=== PATIENT | female | born 1940 | race Caucasian/White ===

== ENCOUNTER 2021-08-02 09:56 | Outpatient (REF) | payer MEDICARE, OTHER, SELFPAY ==
[2021-08-02 11:29] LABS: Appearance Urine CLEAR; Color Urine YELLOW; Glucose Urine UA >=1000 MG/DL (NEG); Leukocyte Esterase Urine NEG (NEG); Nitrite Urine NEG (NEG); Urine Blood NEG (NEG); Urine Ketones NEG (NEG); Urine Protein NEG (NEG-TRACE)
[2021-08-02 11:45] LABS: Bacteria Urine 1+ /LPF; RBC Urine 0-2 /HPF (0); Squamous Epithelial Cell Urine 3+ /LPF
[2021-08-02 12:06] LABS: Estimated Average Glucose 146 mg/dL; Hemoglobin A1c % 6.7 %
[2021-08-02 12:19] LABS: Alanine Aminotransferase 17 U/L (0-31); Albumin Level 4.1 g/dL (3.5-5.0); Alkaline Phosphatase 89 U/L (39-117); Anion Gap 15 (12-20); Aspartate Amino Transferase 25 U/L (5-31); Bilirubin Total 0.7 mg/dL (0.0-1.0); Blood Urea Nitrogen 24 mg/dL (9-16); Calcium 9.4 mg/dL (8.4-10.2); Carbon Dioxide 28 mmol/L (22-29); Chloride 102 mmol/L (96-108); Cholesterol 150 mg/dL; Estimated Glomerular Filt Rate 40; Glucose Fasting 96 mg/dL (60-99); HDL Cholesterol 41 mg/dL; LDL Cholesterol Calculated 76 mg/dl; Magnesium 2.4 mg/dL (1.6-2.6); Potassium 4.4 mmol/L (3.3-5.1); Sodium 141 mmol/L (135-145); Total Protein 6.7 g/dL (6.5-8.0); Triglycerides 169 mg/dL
[2021-08-02 12:20] LABS: TSH reflex Free T4 2.01 uIU/mL (0.32-4.0)
== END 2021-08-02 09:57 | disposition home or self-care (01) ==
LOC: HO.WFDLDS 09:56
PROVIDERS: Visit Provider Family Medicine
DX: Z00.00 Encounter for general adult medical examination without abnormal findings (principal); E11.9 Type 2 diabetes mellitus without complications; G57.93 Unspecified mononeuropathy of bilateral lower limbs
CPT/HCPCS: 36415; 80053; 80061; 81001; 83036; 83735; 84443

== ENCOUNTER 2021-09-14 14:03 | Outpatient (REF) | payer MEDICARE, OTHER, SELFPAY | END 2021-09-14 14:04 | disposition home or self-care (01) | LOC: HO.LNP 14:03 | PROVIDERS: Visit Provider Hospitalist | DX: N39.0 Urinary tract infection, site not specified (principal); R30.0 Dysuria | CPT/HCPCS: 87086 ==

== ENCOUNTER → 2021-09-26 09:53 | Outpatient (BNVA) | payer MEDICARE, OTHER, SELFPAY | PROVIDERS: PCP Family Medicine; Visit Provider Orthopaedic Surgery | DX: M65.342 Trigger finger, left ring finger (principal) | CPT/HCPCS: 99202 ==

== ENCOUNTER 2021-10-12 10:28 | Day surgery (SDC) | payer MEDICARE, OTHER, SELFPAY ==
[2021-10-12 11:36] VITALS: BP 112/67; PULSE 58; RESP 16; TEMP 36.3; O2SAT 98; BMI 24.4
--- NOTE | 2021-10-12 11:37 | P.OP_ITS ---
Operative Note Operative Note Date of Service: 10/12/21 Narrative: Operative Note Preop diagnosis: 1. left ring finger Trigger finger 2. left middle finger trigger finger Postop diagnosis: Same Procedure: 1. left ring finger A1 brett release 2. Left middle finger A1 brett release Surgeon: Shyanne Walters MD Anesthesia: local block using 1% lidocaine with epinephrine Findings: No locking or catching after A1 brett release EBL: Less than 5 mL Tourniquet time: None Specimens: None Complications: None Disposition: Brought to recovery room in stable condition Plan: Follow-up for 10-14 days for wound check and suture removal Indications: The patient is 81 years old, with a left ring finger trigger finger that has been unresponsive to nonoperative management. The risks and benefits of operative treatment including but not limited to risk of damage to blood vessels, nerves, tendons, infection, persistent pain, persistent symptoms, recurrence or possible need for additional surgery were discussed with the patient and the patient wishes to proceed with surgery. Procedure: Once consent was obtained a local block was performed in the preop area using a combination of 1% lidocaine with epinephrine. The patient was then brought back to the operating suite and placed on the operative table in supine position. A tourniquet was applied to the proximal aspect of the left upper extremity and the limb was prepped and draped in a standard surgical fashion. Once assured that we had a good block, a 1.5 cm oblique incision was made centered over the A1 brett of the left ring finger . The incision was made through the skin to the subcutaneous tissues using a #15 blade. Careful dissection was made down to the level of the A1 brett using tenotomy scissors, with care being taken to protect the nearby neurovascular structures. A longitudinal incision was made in the A1 brett 1st using a #15 blade, then using tenotomy scissors under direct visualization. The A1 brett was noted to be thickened. Following our A1 brett release, we no longer saw any locking or catching of the digit with flexion and extension. Once assured that we had a good block, a 1.5 cm oblique incision was made centered over the A1 brett of the left middle finger . The incision was made through the skin to the subcutaneous tissues using a #15 blade. Careful dissection was made down to the level of the A1 brett using tenotomy scissors, with care being taken to protect the nearby neurovascular structures. A longitudinal incision was made in the A1 brett 1st using a #15 blade, then using tenotomy scissors under direct visualization. The A1 brett was noted to be thickened. Following our A1 brett release, we no longer saw any locking or catching of the digit with flexion and extension. Once satisfied with our A1 brett releases the wounds were copiously irrigated with normal saline and hemostasis was obtained with a brief period of local pressure. The skin edges were reapproximated with some 5.0 nylon suture m aterial and a sterile dressing was applied. The patient appears to have tolerated the procedure well and with no complications. All digits were well vascularized at the conclusion of the case.
[2021-10-12 11:58] LABS: Glucose, Whole Blood 151 mg/dL (60-115)
--- NOTE | 2021-10-12 12:38 | MHC.SHP ---
Pre-Procedural Eval Section A Date of Service: 10/12/21 Section B Chief Complaint: trigger release left middle and ring fingers Allergies: Allergies Allergy/AdvReac Type Severity Reaction Status Date / Time levofloxacin [From Levaquin] Allergy Mild hives Verified 09/26/21 10:03 Plan I have reviewed the history and physical and performed a pertinent physical examination on my patient. No changes have occurred unless specified.
[2021-10-12 13:25] VITALS: BP 138/52; PULSE 68; RESP 16; TEMP 36.1; O2SAT 95
== END 2021-10-12 14:20 | disposition home or self-care (01) ==
PROVIDERS: PCP Family Medicine; Visit Provider Orthopaedic Surgery
PROC: (CPT 26055; principal; 2021-10-12 11:20)
DX: M65.332 Trigger finger, left middle finger (principal); M65.342 Trigger finger, left ring finger; E11.9 Type 2 diabetes mellitus without complications; Z79.84 Long term (current) use of oral hypoglycemic drugs; Z79.899 Other long term (current) drug therapy; Z88.1 Allergy status to other antibiotic agents; Z87.891 Personal history of nicotine dependence
CPT/HCPCS: 26055 ×2; 82947

== ENCOUNTER → 2021-10-25 10:24 | Outpatient (BNVA) | payer MEDICARE, OTHER, SELFPAY | PROVIDERS: PCP Family Medicine; Visit Provider Orthopaedic Surgery | DX: Z09 Encounter for follow-up examination after completed treatment for conditions other than malignant neoplasm (principal); Z87.39 Personal history of other diseases of the musculoskeletal system and connective tissue | CPT/HCPCS: 99212 ==

== ENCOUNTER 2021-11-21 11:58 | Outpatient (REF) | payer MEDICARE, OTHER, SELFPAY ==
[2021-11-21 14:28] LABS: Lipase 33 U/L (8-78)
[2021-11-21 15:39] LABS: Folate > 20.0 ng/mL (> or = 4.0); Vitamin B12 935 pg/mL (200-900)
[2021-11-24 08:01] LABS: Transglutaminase Ab IgG <1.0 U/mL; Transglutaminase IgA <1.0 U/mL
[2021-11-26 15:56] LABS: Vitamin D 25-OH, D2 <4 ng/mL; Vitamin D 25-OH, D3 59 ng/mL; Vitamin D 25-OH, Total 59 ng/mL (30-100)
== END 2021-11-21 11:59 | disposition home or self-care (01) ==
LOC: HO.LAB 11:58
PROVIDERS: PCP Family Medicine; Referring Provider Family Medicine; Visit Provider Nurse Practitioner Family
DX: R10.11 Right upper quadrant pain (principal); R15.9 Full incontinence of feces; R14.0 Abdominal distension (gaseous); E55.9 Vitamin D deficiency, unspecified; Z12.11 Encounter for screening for malignant neoplasm of colon
CPT/HCPCS: 36415; 82306; 82607; 82746; 83690; 86364; 99202

== ENCOUNTER 2021-11-23 13:00 | Outpatient (REF) | payer MEDICARE, OTHER, SELFPAY ==
[2021-11-24 14:04] LABS: Leukocytes Stool Qualitative NEGATIVE (NEGATIVE)
[2021-11-30 21:51] LABS: Pancreatic Elastase-1 331 mcg/g
== END 2021-11-23 13:01 | disposition home or self-care (01) ==
LOC: HO.LNP 13:00
PROVIDERS: Visit Provider Nurse Practitioner Family
DX: R19.7 Diarrhea, unspecified (principal)
CPT/HCPCS: 82656; 87045; 87046; 87177; 87209; 89055

== ENCOUNTER 2021-12-01 11:55 | Outpatient (REF) | payer MEDICARE, OTHER, SELFPAY ==
--- NOTE | ~2021-12-01 | MM_ITS ---
EXAMINATION: MM DIAGNOSTIC DIGITAL BREAST TOMOSYNTHESIS, BILATERAL US BREAST LIMITED, BILATERAL CLINICAL INFORMATION: Palpable abnormality 12-o'clock position right breast. Circumscribed density inferior lateral aspect of the left breast. The lifetime risk of breast cancer based on the Tyrer-Cuzick Model is 3%. COMPARISON: Mammography: None TECHNIQUE: Digital breast tomosynthesis was performed in both the craniocaudal and mediolateral oblique views along with computer-aided detection (CAD). Synthesized 2D images were generated from the tomosynthesis. Bilateral targeted breast ultrasound. FINDINGS: The breasts are heterogeneously dense, which may obscure small masses (ACR BI-RADS breast composition Category c). MAMMOGRAPHY: There are innumerable calcifications seen bilaterally. No more suspicious grouping of calcifications is identified compared to any other grouping. About the inferior lateral aspect of the left breast approximately 4 cm from the nipple, there is a 1.0 x 0.7 cm circumscribed density No mammographic abnormality is appreciated about the region of the palpable lesion in the right breast. ULTRASOUND: Targeted right breast ultrasound in the region of the palpable abnormality demonstrated multiple cysts in the region with the largest measuring approximately 1.6 x 0.6 cm in size. The patient states that she had trauma to this region and it is less prominent compared to previously. Targeted left breast ultrasound at the 3-o'clock position, approximately 4 cm from the nipple, demonstrated a 7 x 5 x 1.2 cm simple cyst. Results are discussed with the patient at time of visit. MM/MM tomosynthesis diagnostic BI IMPRESSION: No mammographic or ultrasound findings to suggest malignancy. ASSESSMENT: BI-RADS 2: Benign RECOMMENDATION: Routine annual mammography screening due in 12 months. This patient's information was entered into a reminder system with a target due date for their next mammogram.
--- NOTE | ~2021-12-01 | US_ITS ---
EXAMINATION: US DIAGNOSTIC ULTRASOUND BREAST, LEFT CLINICAL INFORMATION: Circumscribed density. COMPARISON: Mammography of same day. TECHNIQUE: Ultrasound of the breast is performed with real-time maurer scale imaging and color Doppler. FINDINGS: Targeted right breast ultrasound in region of palpable abnormality demonstrated multiple cysts in the region with the largest measuring approximately 1.6 x 0.6 cm in size. Patient states that she had trauma to this region and is less prominent compared to previously. Targeted left breast ultrasound at the 3:00 position approximately 4 cm from nipple demonstrated a 7 x 5 x 1.2 cm simple cyst. Results are discussed with the patient at time of visit. US/US breast LT limited IMPRESSION: No mammographic or ultrasound findings to suggest malignancy. ASSESSMENT: BI-RADS 2: Benign RECOMMENDATION: Routine annual mammography screening due in 12 months.
--- NOTE | ~2021-12-01 | US_ITS ---
EXAMINATION: US DIAGNOSTIC ULTRASOUND BREAST, RIGHT CLINICAL INFORMATION: Palpable abnormality in region of trauma. COMPARISON: None. TECHNIQUE: Ultrasound of the breast is performed with real-time maurer scale imaging and color Doppler. FINDINGS: Targeted right breast ultrasound in region of palpable abnormality demonstrated multiple cysts in the region with the largest measuring approximately 1.6 x 0.6 cm in size. Patient states that she had trauma to this region and is less prominent compared to previously. Targeted left breast ultrasound at the 3:00 position approximately 4 cm from nipple demonstrated a 7 x 5 x 1.2 cm simple cyst. Results are discussed with the patient at time of visit. US/US breast RT limited IMPRESSION: No mammographic or ultrasound findings to suggest malignancy. ASSESSMENT: BI-RADS 2: Benign RECOMMENDATION: Routine annual mammography screening due in 12 months.
== END 2021-12-01 11:56 | disposition home or self-care (01) ==
LOC: HO.MAMMO 11:55
PROVIDERS: PCP Family Medicine; Visit Provider Family Medicine
DX: R92.2 Inconclusive mammogram (principal)
CPT/HCPCS: 76642; 77062; 77066

== ENCOUNTER → 2022-02-14 13:19 | Outpatient (BNVA) | payer MEDICARE, OTHER, SELFPAY | PROVIDERS: PCP Family Medicine; Visit Provider Orthopaedic Surgery | DX: M65.341 Trigger finger, right ring finger (principal) | CPT/HCPCS: 20550; 99212; J1100 ==

== ENCOUNTER 2022-02-22 11:27 | Outpatient (REF) | payer MEDICARE, OTHER, SELFPAY ==
[2022-02-22 14:21] LABS: Alanine Aminotransferase 23 U/L (0-31); Albumin Level 4.1 g/dL (3.5-5.0); Alkaline Phosphatase 116 U/L (39-117); Anion Gap 13 (12-20); Aspartate Amino Transferase 23 U/L (5-31); Bilirubin Total 0.6 mg/dL (0.0-1.0); Blood Urea Nitrogen 37 mg/dL (9-16); Calcium 10.3 mg/dL (8.4-10.2); Carbon Dioxide 31 mmol/L (22-29); Chloride 104 mmol/L (96-108); Estimated Glomerular Filt Rate 33; Glucose Fasting 139 mg/dL (60-99); Potassium 4.6 mmol/L (3.3-5.1); Sodium 143 mmol/L (135-145); Total Protein 6.9 g/dL (6.5-8.0)
[2022-02-22 15:12] LABS: Creatinine Urine 84.04 mg/dL; Microalbum/Creatinine Ratio Ur 60.6 ug/mg cr
== END 2022-02-22 11:28 | disposition home or self-care (01) ==
LOC: HO.WFDLDS 11:27
PROVIDERS: Visit Provider Family Medicine
DX: Z00.00 Encounter for general adult medical examination without abnormal findings (principal); E11.9 Type 2 diabetes mellitus without complications; I10 Essential (primary) hypertension
CPT/HCPCS: 36415; 80053; 82043

== ENCOUNTER → 2022-03-09 13:31 | Outpatient (BNVA) | payer MEDICARE, OTHER, SELFPAY | PROVIDERS: PCP Family Medicine; Referring Provider Family Medicine; Visit Provider Nurse Practitioner Family | DX: K58.9 Irritable bowel syndrome, unspecified (principal); R19.7 Diarrhea, unspecified | CPT/HCPCS: 99212 ==

== ENCOUNTER → 2022-03-13 14:12 | Outpatient (BNVA) | payer MEDICARE, OTHER, SELFPAY | PROVIDERS: PCP Family Medicine; Visit Provider Orthopaedic Surgery | DX: M65.341 Trigger finger, right ring finger (principal) | CPT/HCPCS: 99212 ==

== ENCOUNTER 2022-04-16 10:47 | Day surgery (SDC) | payer MEDICARE, OTHER, SELFPAY ==
[2022-04-16 13:11] VITALS: BP 179/74; PULSE 72; RESP 16; TEMP 36.1; O2SAT 95; BMI 23.3
--- NOTE | 2022-04-16 13:51 | P.OP_ITS ---
Operative Note Operative Note Date of Service: 04/16/22 Narrative: Operative Note Preop diagnosis: 1. right ring finger Trigger finger Postop diagnosis: 1. right ring finger Trigger finger Procedure: 1. right ring finger A1 brett release Surgeon: Shyanne Walters MD Anesthesia: local block using 1% lidocaine with epinephrine Findings: No locking or catching after A1 brett release EBL: Less than 5 mL Tourniquet time: None Specimens: None Complications: None Disposition: Brought to recovery room in stable condition Plan: Follow-up for 10-14 days for wound check and suture removal Indications: The patient is 82 years old, with a right ring finger trigger finger that has been unresponsive to nonoperative management. The risks and benefits of operative treatment including but not limited to risk of damage to blood vessels, nerves, tendons, infection, persistent pain, persistent symptoms, recurrence or possible need for additional surgery were discussed with the patient and the patient wishes to proceed with surgery. Procedure: Once consent was obtained a local block was performed in the preop area using a combination of 1% lidocaine with epinephrine. The patient was then brought back to the operating suite and placed on the operative table in supine position. A tourniquet was applied to the proximal aspect of the right upper extremity and the limb was prepped and draped in a standard surgical fashion. Once assured that we had a good block, a 1.5 cm oblique incision was made centered over the A1 brett of the right ring finger . The incision was made through the skin to the subcutaneous tissues using a #15 blade. Careful dissection was made down to the level of the A1 brett using tenotomy scissors, with care being taken to protect the nearby neurovascular structures. A longitudinal incision was made in the A1 brett 1st using a #15 blade, then using tenotomy scissors under direct visualization. The A1 brett was noted to be thickened. Following our A1 brett release, we no longer saw any locking or catching of the digit with flexion and extension. Once satisfied with our A1 brett release the wound was copiously irrigated with normal saline and hemostasis was obtained with a brief period of local pressure. The skin edges were reapproximated with some 5.0 nylon suture material and a sterile dressing was applied. The patient appears to have tolerated the procedure well and with no c omplications. All digits were well vascularized at the conclusion of the case.
--- NOTE | 2022-04-16 13:51 | MHC.SHP ---
Pre-Procedural Eval Section A Date of Service: 04/16/22 The patient is an INPATIENT: No Changes since office visit: No Cold of Flu in the past 2 weeks, No New Medical Problems, No Changes in Medication and No Patient answered all questions The History & Physical has been completed within 30 days and I have reviewed it.: Yes Section B Chief Complaint: trigger finger Allergies: Allergies Allergy/AdvReac Type Severity Reaction Status Date / Time levofloxacin [From Levaquin] Allergy Mild hives Verified 03/13/22 15:07 Plan I have reviewed the history and physical and performed a pertinent physical examination on my patient. No changes have occurred unless specified.
== END 2022-04-16 15:29 | disposition home or self-care (01) ==
PROVIDERS: PCP Family Medicine; Visit Provider Orthopaedic Surgery
PROC: (CPT 26055; principal; 2022-04-16 12:50)
DX: M65.341 Trigger finger, right ring finger (principal); E11.9 Type 2 diabetes mellitus without complications; G62.9 Polyneuropathy, unspecified; Z88.1 Allergy status to other antibiotic agents; Z87.891 Personal history of nicotine dependence
CPT/HCPCS: 26055; J0171

== ENCOUNTER 2022-11-29 12:03 | Outpatient (REF) | payer MEDICARE, OTHER, SELFPAY ==
[2022-11-29 13:55] LABS: MANUAL DIFF FLAG NO
[2022-11-29 14:24] LABS: Basophils Absolute Auto 0.1 X10*3/uL (0.0-0.2); Basophils Percent Auto 0.9 % (0-2); Eosinophils Absolute Auto 0.3 X10*3/uL (0.0-0.4); Eosinophils Percent Auto 3.9 % (0-4); Hemoglobin 13.6 g/dl (12.0-16.0); Imm Gran Abs Auto 0.02 X10*3/uL (0.00-0.03); Imm Gran Pct Auto 0.3 % (0.0-0.4); Lymphocytes Absolute Auto 1.9 X10*3/uL (1.2-4.9); Lymphocytes Percent Auto 27.4 % (20-40); Mean Corpuscular HGB Conc 31.6 g/dl (31.0-35.0); Mean Corpuscular Hemoglobin 29.2 pg (27.0-33.0); Mean Corpuscular Volume 92.5 fL (80.0-98.0); Mean Platelet Volume 10.3 fL (9.4-12.3); Monocytes Absolute Auto 0.5 X10*3/uL (0.1-1.2); Monocytes Percent Auto 7.7 % (2-11); Neutrophils Absolute Auto 4.1 x10*3/uL (2.0-8.3); Neutrophils Percent Auto 59.8 % (45-73); Platelet Count 215 X10*3/uL (160-400); Red Blood Count 4.65 X10*6/uL (4.20-5.50); Red Cell Distribution Width 13.8 % (11.0-16.0); White Blood Count 6.9 X10*3/uL (4.8-10.8)
[2022-11-29 15:06] LABS: Alanine Aminotransferase 21 U/L (0-31); Alkaline Phosphatase 117 U/L (39-117); Anion Gap 14 (12-20); Aspartate Amino Transferase 24 U/L (5-31); Bilirubin Total 0.9 mg/dL (0.0-1.0); Blood Urea Nitrogen 24 mg/dL (9-16); Calcium 9.7 mg/dL (8.4-10.2); Carbon Dioxide 32 mmol/L (22-29); Chloride 101 mmol/L (96-108); Estimated Glomerular Filt Rate 38; Glucose Random 260 mg/dL (60-115); Potassium 4.5 mmol/L (3.3-5.1); Sodium 142 mmol/L (135-145); Total Protein 6.7 g/dL (6.5-8.0)
== END 2022-11-29 12:04 | disposition home or self-care (01) ==
LOC: HO.WFDLDS 12:03
PROVIDERS: Visit Provider Family Medicine
DX: Z00.00 Encounter for general adult medical examination without abnormal findings (principal); E11.9 Type 2 diabetes mellitus without complications
CPT/HCPCS: 36415; 80053; 85025

== ENCOUNTER 2023-01-07 12:30 | Outpatient (REF) | payer MEDICARE, OTHER, SELFPAY ==
--- NOTE | ~2023-01-07 | MM_ITS ---
EXAMINATION: MM SCREENING DIGITAL BREAST TOMOSYNTHESIS, BILATERAL CLINICAL INFORMATION: Screening. Asymptomatic. The lifetime risk of breast cancer based on the Tyrer-Cuzick Model is 2%. COMPARISON: Mammography: 12/01/2021, outside exam 11/30/2020 ([facility], [place], [place]). TECHNIQUE: Digital breast tomosynthesis is performed in both the craniocaudal and mediolateral oblique views along with computer-aided detection (CAD). Synthesized 2D images are generated from the tomosynthesis. FINDINGS: The breasts are heterogeneously dense, which may obscure small masses (ACR BI-RADS breast composition Category c). There is a fibronodular parenchymal pattern similar to prior studies. No significant mass or developing density or architectural abnormality. Again, there are innumerable diffuse bilateral round and ductal secretory and some vascular and rim calcifications again seen. The axilla are unremarkable. No significant changes. MM/MM tomosynthesis screening BI IMPRESSION: No mammographic evidence of malignancy. ASSESSMENT: BI-RADS 2: Benign RECOMMENDATION: Routine annual mammography screening. This patient's information was entered into a reminder system with a target due date for their next mammogram.
== END 2023-01-07 12:31 | disposition home or self-care (01) ==
LOC: HO.MAMMO 12:30
PROVIDERS: PCP Family Medicine; Visit Provider Family Medicine
DX: Z12.31 Encounter for screening mammogram for malignant neoplasm of breast (principal)
CPT/HCPCS: 77063; 77067

== ENCOUNTER → 2023-03-27 11:10 | Outpatient (BNVA) | payer MEDICARE, OTHER, SELFPAY | PROVIDERS: PCP Family Medicine; Visit Provider Orthopaedic Surgery | DX: M65.352 Trigger finger, left little finger (principal); M18.12 Unilateral primary osteoarthritis of first carpometacarpal joint, left hand; E11.9 Type 2 diabetes mellitus without complications | CPT/HCPCS: 99212 ==

== ENCOUNTER 2023-04-15 09:52 | Day surgery (SDC) | payer MEDICARE, OTHER, SELFPAY ==
[2023-04-15 10:19] VITALS: BMI 24.4
[2023-04-15 10:29] VITALS: BP 142/61; PULSE 70; RESP 18; TEMP 36.6; O2SAT 96
--- NOTE | 2023-04-15 11:14 | W.PM.OPN ---
Operative Note Operative Note Date of Service: 04/15/23 Narrative: Operative Note Preop diagnosis: 1. Left small finger Trigger finger Postop diagnosis: 1. Left small finger Trigger finger Procedure: 1. Left small finger A1 brett release Surgeon: Shyanne Walters MD Anesthesia: local block using 1% lidocaine with epinephrine Findings: No locking or catching after A1 brett release EBL: Less than 5 mL Tourniquet time: None Specimens: None Complications: None Disposition: Brought to recovery room in stable condition Plan: Follow-up for 10-14 days for wound check and suture removal Indications: The patient is 83 years old, with a left small finger trigger finger that has been unresponsive to nonoperative management. The risks and benefits of operative treatment including but not limited to risk of damage to blood vessels, nerves, tendons, infection, persistent pain, persistent symptoms, recurrence or possible need for additional surgery were discussed with the patient and the patient wishes to proceed with surgery. Procedure: Once consent was obtained a local block was performed in the preop area using a combination of 1% lidocaine with epinephrine. The patient was then brought back to the operating suite and placed on the operative table in supine position. The left upper extremity was prepped and draped in a standard surgical fashion. Once assured that we had a good block, a 1.5 cm oblique incision was made centered over the A1 brett of the left small finger . The incision was made through the skin to the subcutaneous tissues using a #15 blade. Careful dissection was made down to the level of the A1 brett using tenotomy scissors, with care being taken to protect the nearby neurovascular structures. A longitudinal incision was made in the A1 brett 1st using a #15 blade, then using tenotomy scissors under direct visualization. The A1 brett was noted to be thickened. Following our A1 brett release, we no longer saw any locking or catching of the digit with flexion and extension. Once satisfied with our A1 brett release the wound was copiously irrigated with normal saline and hemostasis was obtained with a brief period of local pressure. The skin edges were reapproximated with some 5.0 nylon suture material and a sterile dressing was applied. The patient appears to have tolerated the procedure well and with no complications. All digits were well vascularized at the conclusion of the case.
--- NOTE | 2023-04-15 13:34 | MHC.SHP ---
Pre-Procedural Eval Section A Date of Service: 04/15/23 The patient is an INPATIENT: No Changes since office visit: No Cold of Flu in the past 2 weeks, No New Medical Problems, No Changes in Medication and No Patient answered all questions The History & Physical has been completed within 30 days and I have reviewed it.: Yes Section B Chief Complaint: Trigger finger, left little finger Allergies: Allergies Allergy/AdvReac Type Severity Reaction Status Date / Time levofloxacin [From Levaquin] Allergy Mild hives Verified 03/27/23 11:22 Plan I have reviewed the history and physical and performed a pertinent physical examination on my patient. No changes have occurred unless specified. Time Spent With Patient Time: Total time managing care of this patient today ____ minutes.
[2023-04-15 14:00] VITALS: BP 125/56; PULSE 61; RESP 15; O2SAT 95
== END 2023-04-15 14:03 | disposition home or self-care (01) ==
PROVIDERS: PCP Family Medicine; Visit Provider Orthopaedic Surgery
PROC: (CPT 26055; principal; 2023-04-15 11:10)
DX: M65.352 Trigger finger, left little finger (principal); M18.12 Unilateral primary osteoarthritis of first carpometacarpal joint, left hand; E11.9 Type 2 diabetes mellitus without complications; G62.9 Polyneuropathy, unspecified; Z88.1 Allergy status to other antibiotic agents; Z87.891 Personal history of nicotine dependence
CPT/HCPCS: 26055

== ENCOUNTER → 2023-04-15 09:52 | Outpatient (BNV) | payer MEDICARE, OTHER, SELFPAY | PROVIDERS: PCP Family Medicine; Visit Provider Orthopaedic Surgery | DX: M65.352 Trigger finger, left little finger (principal) | CPT/HCPCS: 26055 ==

== ENCOUNTER 2023-04-30 09:38 | Outpatient (AMB) | payer MEDICARE, OTHER, SELFPAY ==
--- NOTE | 2023-04-30 09:50 | A.OFFVIS_ITS ---
Intake Vital Signs 04/30/23 09:51 Height 5 ft 3 in Weight 138 lb BMI 24.4 Intake Visit Reasons: PO L SF Trigger Release 04/15/23 AR Intake Note: Kassy a 83 yr old female presents today for her P/O visit of left small finger trigger release from 04/15/[address] Walters. States locking of finger has subside, she is experiencing soreness around incision area. Sutures removed and steri strips applied. Allergies levofloxacin [From Levaquin] Allergy (Mild, Verified 04/30/23 09:51) hives HPI PO L SF Trigger Release 04/15/23 AR HPI Details Kassy is an 83 year old right hand dominant woman who presents S/P left small finger trigger release, DOS: 04/15/23. She is seen today wearing her comfort cool brace on her left hand. She says she is doing well and no longer has any locking or catching and is very pleased with the results of her surgery. She says her comfort cool brace has been very helpful for her left basal joint OA, and she wants to know when and how long she can wear this during the day. 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 Sutures removed and Steri-Strips applied She can make a fist and extend all her digits No locking or catching Sensation is intact Cap refill is brisk Psych Appearance: grossly normal Affect: normal affect Attitude: cooperative Assessment & Plan Assessment & Plan (1) Trigger little finger of left hand: Code(s): M65.352 - Trigger finger, left little finger (2) Diabetes: Code(s): E11.9 - Type 2 diabetes mellitus without complications (3) Arthritis of carpometacarpal (CMC) joint of left thumb: Code(s): M18.12 - Unilateral primary osteoarthritis of first carpometacarpal joint, left hand Plan Assessment and plan: 1. Left small trigger finger, S/P release DOS: 04/15/23 The patient appears to be doing well post-operatively I educated her about the post-operative course I discussed activity modifications, she is to lift nothing heavier than a cellphone for the next two weeks She will perform gentle ROM exercises at home She should avoid any underwater activities for the next 5 days She should gently massage about the incision site to reduce the risk of hypersensitivity She can follow up prn 2. Left basal joint arthritis I educated her about this condition She will continue to wear her Comfort cool brace to wear with daily activities when symptomatic I discussed activity modification, she should limit or avoid any heavy or repetitive pinching or gripping activities I also educated her about steroid injections and she knows to contact us if she should become more symptomatic. 3. Right ring trigger finger, S/P release DOS: 04/16/22 4. Left ring trigger finger, S/P release DOS 10/12/21 5. Left middle trigger finger, S/P release DOS 10/12/21 Excellent resolution of symptoms Scribed for Shyanne Walters MD by Michele Grace, medical cash poster, on 03/27/23 at 11:45 AM, EST. Coding Level of Care Code Global (69173) Diagnoses Trigger little finger of left hand M65.352 Diabetes E11.9 Arthritis of carpometacarpal (CMC) joint of left thumb M18.12
[2023-04-30 09:51] VITALS: BMI 24.4
== END 2023-04-30 10:54 | disposition home or self-care (01) ==
PROVIDERS: PCP Family Medicine; Visit Provider Orthopaedic Surgery
DX: M65.352 Trigger finger, left little finger (principal); E11.9 Type 2 diabetes mellitus without complications; M18.12 Unilateral primary osteoarthritis of first carpometacarpal joint, left hand
CPT/HCPCS: 99024

== ENCOUNTER → 2023-04-30 09:38 | Outpatient (BNVA) | payer MEDICARE, OTHER, SELFPAY | PROVIDERS: PCP Family Medicine; Visit Provider Orthopaedic Surgery ==

== ENCOUNTER 2023-07-15 14:36 | Outpatient (AMB) | payer MEDICARE, OTHER, SELFPAY ==
--- NOTE | 2023-07-15 14:43 | MHC.PC.OV ---
Vital Signs 07/15/23 14:44 Height 5 ft 3 in Weight 135 lb 2 oz BMI 23.9 BP 122/74 Blood Pressure Location Lt brachial Position Sitting Respiration 12 Pulse 64 Pulse Source Pulse Oximeter Pulse Oximetry (%) 98 Oxygen Delivery Method Room Air Intake Visit Reasons: Follow up diabetes & htn Intake Note: Patient is here to following up on diabetes and hypertension. Allergies levofloxacin [From Levaquin] Allergy (Mild, Verified 07/15/23 14:49) hives Tobacco use date assessed: 07/15/23 Fall risk assessment: 2 + Falls in past year Last assessed Fall Risk: 07/15/23 HPI Follow up diabetes & htn HPI Details Presents?to?follow-up?diabetes?and?hypertension. Blood?pressure?shows?good?control?today.??She?is?tolerating?blood?pressure?medication wiithout?problems.??A1c?has?climbed?again?to?7.3%. Patient?notes?that?last?month?was?a?very?chaotic?time; her??passed?away?so?she?had?no?set?schedules. Also,?she?was?without?her?Trulicity?for?2?weeks. Doing?better?now.. She?also?notes?increased?phlegm?in?the?mornings?and?needs?to?clear?her?throat.??Symptoms?do?not?persist?throughout?her?day. Also?has?irritation?at?right?ear?with?small?lesion. Not?itchy. 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 Rey Manley, Kalyani Mccallum, Jameel Peterson and colleagues, with an educational cm from [employer]. Physical exam (Primary Care) Vital Signs: Last Vital Signs Pulse 64 07/15/23 14:44 Resp 12 07/15/23 14:44 BP 122/74 07/15/23 14:44 Pulse Ox 98 07/15/23 14:44 Oxygen Delivery Method Room Air 07/15/23 14:44 BMI result Body Mass Index 23.9 Tobacco/Smoking Status: Tobacco use Status Tobacco use date assessed 07/15/23 07/15/23 14:55 Patient Tobacco Use Status Former Tobacco user 07/15/23 14:52 e-Cigarette/Vaping Use Never Used 07/15/23 14:52 Thrive Assessment: Date of Thrive Assessment Date Thrive assessed 05/24/22 07/15/23 14:52 Assessment and Plan Assessment & Plan (1) Diabetes: Code(s): E11.9 - Type 2 diabetes mellitus without complications Plan: A1c?has?climbed?to?7.3% Trulicity?did?not?get?refilled?for?about?2?weeks?and?she?has?not?had?a?regular?schedule?in?the?past?2?months?due?to?the?passing?of?her?. Refilled?Trulicity?and?she?will?continue?her?medications?as?prescribed.??No?med?changes?today. Will?recheck?again?at?her?next?visit (2) Neoplasm of uncertain behavior of skin: Code(s): D48.5 - Neoplasm of uncertain behavior of skin Plan: Possible?actinic?keratosis?at?top?of?right?ear Referred?to?dermatology (3) Irritation of right ear: Code(s): H93.8X1 - Other specified disorders of right ear Plan: Some?irritation?skin?at?right?ear. Can?try?topical?steroid?but?patient?is?already?referred?to?dermatology. (4) Essential hypertension: Code(s): I10 - Essential (primary) hypertension Plan: Blood?pressure?well?controlled.??Goal?is?less?than?140/90 Continue?current?medication Plan Patient?also?had?some?irritation?in?her?throat?with?phlegm?and?throat?clearing.??Only?in?the?mornings. Try?cetirizine?and?if?not?improving,?will?discuss?referral?to?ENT?or?pulmonology Orders: Orders B Type Natriuretic Peptide Today I50.9 - Heart failure, unspecified Comprehensive Glenvil. Panel Fast Today Z00.00 - Encounter for general adult medical examination without abnormal findings Lipid Panel Today Z00.00 - Encounter for general adult medical examination without abnormal findings TSH reflex Free T4 Today Z00.00 - Encounter for general adult medical examination without abnormal findings UA and rflx microscopic Today Z00.00 - Encounter for general adult medical examination without abnormal findings Vitamin B12 and Folate Today E53.8 - Deficiency of other specified B group vitamins Vitamin D 25-OH Total Today E55.9 - Vitamin D deficiency, unspecified Complete Blood Count Auto Diff Today Z00.00 - Encounter for general adult medical examination without abnormal findings Microalbumin, Random (w Creat) Today I10 - Essential (primary) hypertension Referrals Dermatology Referral D48.5 - Neoplasm of uncertain behavior of skin Medications: New betamethasone dipropionate 0.05% 1 appl topical BID 14 days PRN 15 grams 1RF skin irritation cetirizine (All Day Allergy (cetirizine)) 10 mg PO DAILY 30 days PRN 30 tabs 2RF allergy symptoms Changed From dulaglutide (Trulicity) 1.5 mg (0.5 mL) subcut QWEEK 28 days 2 mL 3RF To dulaglutide (Trulicity) 1.5 mg (0.5 mL) subcut QWEEK 84 days 6 mL 3RF Coding Level of Care Code Tele Est Pt Level 4 (97570) Diagnoses Diabetes E11.9 Neoplasm of uncertain behavior of skin D48.5 Irritation of right ear H93.8X1 Essential hypertension I10
[2023-07-15 14:44] VITALS: BP 122/74; PULSE 64; RESP 12; O2SAT 98; BMI 23.9
== END 2023-07-15 16:00 | disposition home or self-care (01) ==
PROVIDERS: PCP Family Medicine; Visit Provider Family Medicine
DX: E11.9 Type 2 diabetes mellitus without complications (principal); D48.5 Neoplasm of uncertain behavior of skin; H93.8X1 Other specified disorders of right ear; I10 Essential (primary) hypertension
CPT/HCPCS: 99214

== ENCOUNTER 2023-09-11 10:27 | Outpatient (REF) | payer MEDICARE, OTHER, SELFPAY ==
[2023-09-11 14:09] LABS: MANUAL DIFF FLAG NO
[2023-09-11 14:12] LABS: Basophils Percent Auto 0.6 % (0-2); Eosinophils Absolute Auto 0.2 X10*3/uL (0.0-0.4); Eosinophils Percent Auto 3.4 % (0-4); Hematocrit 42.5 % (37.0-47.0); Hemoglobin 13.6 g/dl (12.0-16.0); Imm Gran Abs Auto 0.01 X10*3/uL (0.00-0.03); Imm Gran Pct Auto 0.1 % (0.0-0.4); Lymphocytes Absolute Auto 2.3 X10*3/uL (1.2-4.9); Lymphocytes Percent Auto 32.2 % (20-40); Mean Corpuscular Hemoglobin 29.8 pg (27.0-33.0); Mean Platelet Volume 10.1 fL (9.4-12.3); Monocytes Absolute Auto 0.5 X10*3/uL (0.1-1.2); Monocytes Percent Auto 7.7 % (2-11); Neutrophils Absolute Auto 3.9 x10*3/uL (2.0-8.3); Platelet Count 230 X10*3/uL (160-400); Red Blood Count 4.57 X10*6/uL (4.20-5.50)
[2023-09-11 14:14] LABS: Appearance Urine Cloudy; Color Urine Yellow; Glucose Urine UA >=1000 mg/dL (Negative); Leukocyte Esterase Urine Moderate (2+) (Negative); Nitrite Urine Negative (Negative); PH 5.5 (5.0-9.0); Specific Gravity - Urine 1.025 (1.005-1.025); UMIC TRIGGER UA YES; Urine Blood Trace (Negative); Urine Ketones Negative (Negative); Urine Protein Negative (Neg-Trace)
[2023-09-11 14:17] LABS: Bacteria Urine 1+ (None Seen); Hyaline Casts Urine 0-2 /LPF (0-2); RBC Urine 0-2 /HPF (0-2); WBC Urine >50 /HPF (0-5)
[2023-09-11 14:36] LABS: B Type Natriuretic Peptide 33 pg/mL (<100)
[2023-09-11 14:50] LABS: Creatinine Urine 104.01 mg/dL; Microalbum/Creatinine Ratio Ur 14.4 ug/mg cr (<30)
[2023-09-11 15:02] LABS: Alanine Aminotransferase 21 U/L (0-31); Albumin Level 4.2 g/dL (3.5-5.0); Alkaline Phosphatase 91 U/L (39-117); Anion Gap 13 (12-20); Aspartate Amino Transferase 25 U/L (5-31); Bilirubin Total 0.6 mg/dL (0.0-1.0); Blood Urea Nitrogen 28 mg/dL (9-16); Calcium 9.9 mg/dL (8.4-10.2); Carbon Dioxide 30 mmol/L (22-29); Chloride 104 mmol/L (96-108); Cholesterol 144 mg/dL (<200); Estimated Glomerular Filt Rate 39; Glucose Fasting 107 mg/dL (60-99); HDL Cholesterol 55 mg/dL (>40); LDL Cholesterol Calculated 66 mg/dL (<100); Potassium 4.2 mmol/L (3.3-5.1); Sodium 143 mmol/L (135-145); Total Protein 7.1 g/dL (6.5-8.0); Triglycerides 115 mg/dL (<150)
[2023-09-11 15:09] LABS: TSH reflex Free T4 1.45 uIU/mL (0.32-4.0)
[2023-09-11 15:20] LABS: Folate 14.2 ng/mL (> or = 4.0); Vitamin B12 1160 pg/mL (200-900)
== END 2023-09-11 10:28 | disposition home or self-care (01) ==
LOC: HO.WFDLDS 10:27
PROVIDERS: Visit Provider Family Medicine
DX: Z00.00 Encounter for general adult medical examination without abnormal findings (principal); E55.9 Vitamin D deficiency, unspecified; E53.8 Deficiency of other specified B group vitamins; I11.0 Hypertensive heart disease with heart failure; I50.9 Heart failure, unspecified
CPT/HCPCS: 36415; 80053; 80061; 81001; 82043; 82306; 82570; 82607; 82746; 83880; 84443; 85025

== ENCOUNTER 2023-09-17 13:45 | Outpatient (AMB) | payer MEDICARE, OTHER, SELFPAY ==
[2023-09-17 13:51] VITALS: BP 118/64; PULSE 71; RESP 16; O2SAT 99; BMI 23.2
--- NOTE | 2023-09-17 13:51 | A.OFFPC_ITS ---
Vital Signs 09/17/23 13:51 Height 5 ft 3 in Weight 131 lb BMI 23.2 BP 118/64 Blood Pressure Location Lt brachial Position Sitting Respiration 16 Pulse 71 Pulse Source Pulse Oximeter Pulse Oximetry (%) 99 Oxygen Delivery Method Room Air Intake Visit Reasons: Extended exam with f/u labs and health maint. Intake Note: Patient is here for extended exam and follow up on labs and health maintenance. She would like a handicap placard application filled out today. Allergies levofloxacin [From Levaquin] Allergy (Mild, Verified 09/17/23 13:57) hives Medication List - Last Reconciled 09/17/23 by Scot Bourne MD amitriptyline 50 mg PO BEDTIME 90 days atorvastatin 20 mg PO BEDTIME betamethasone dipropionate 0.05% 1 appl topical BID PRN 14 days blood sugar diagnostic (True Metrix Glucose Test Strip) Once a day As directed, to test blood sugar. 90 days cetirizine (All Day Allergy (cetirizine)) 10 mg PO DAILY PRN 30 days dulaglutide (Trulicity) 1.5 mg (0.5 mL) subcut QWEEK 84 days empagliflozin (Jardiance) 20 mg (2 x 10 mg) PO DAILY 90 days gabapentin 300 mg PO BID 90 days glyburide 5 mg PO BID hydrochlorothiazide 6.25 mg (1/2 x 12.5 mg) PO DAILY 90 days gskrpq-pslbrjvj-ovmeizg 24,000-76,000 -120,000 unit (Creon) 1 cap PO BID 90 days wuqwew-qkehlydv-yfiquve 3,000-10,000 -14,000-unit PO lisinopril 10 mg PO DAILY 90 days metronidazole 1% 1 appl topical BEDTIME 30 days Tobacco use date assessed: 09/17/23 Fall risk assessment: 2 + Falls in past year Last assessed Fall Risk: 09/17/23 HPI Extended exam with f/u labs and health maint. HPI Details 83 y/o female presents for an extended e xam with f/u labs and health maintenance. Labs were drawn 09/11/23. Reviewed labs with pt. Triglycerides 115. TC 144. LDL 66. HDL 55. Creatinine level 1.30 mg/dL. A1c today 09/17/23 is 6.6%. 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 Rey Manley, Kalyani Mccallum, Jameel Peterson and colleagues, with an educational cm from [employer]. Review of Systems Const Denies chills, Denies fatigue, Denies fever(s), Denies headache(s) and Denies weakness ENT Denies dizziness and Denies headache(s) Card Denies chest pain, Denies lightheadedness, Denies dyspnea and Denies other (Palpitations) Resp Denies cough, Denies dyspnea, Denies wheezing and Denies other ( shortness of breath) Musc Denies numbness and Denies tingling Neuro Denies dizziness, Denies headache(s), Denies numbness, Denies tingling, Denies paresthesias and Denies weakness Psych Denies anxiety and Denies depression Endo Denies fatigue Aller/Immun Denies wheezing Physical exam (Primary Care) Vital Signs: Last Vital Signs Pulse 71 09/17/23 13:51 Resp 16 09/17/23 13:51 BP 118/64 09/17/23 13:51 Pulse Ox 99 09/17/23 13:51 Oxygen Delivery Method Room Air 09/17/23 13:51 BMI result Body Mass Index 23.2 Tobacco/Smoking Status: Tobacco use Status Tobacco use date assessed 09/17/23 09/17/23 13:57 Patient Tobacco Use Status Former Tobacco user 09/17/23 13:56 e-Cigarette/Vaping Use Never Used 09/17/23 13:56 Thrive Assessment: Date of Thrive Assessment Date Thrive assessed 05/24/22 09/17/23 13:56 Const General: no acute distress and well developed Nutritional Appearance: well nourished Orientation/consciousness: patient oriented x3 HENMT Head: Yes normocephalic and Yes atraumatic Eyes General: appearance normal, both eyes and all related structures Pupils: Equal, round and reactive pupils present EOM: EOMs intact bilaterally Resp Effort & Inspection: normal respiratory effort Auscultation: clear to auscultation bilaterally Cardio Rate: regular rate Rhythm: regular rhythm Heart sounds: S1 normal heart sound present, S2 normal heart sound present, no gallops, no murmurs and no rubs Neuro General: patient oriented x3 and gait normal Cranial nerves: Yes Equal, round and reactive pupils present Psych Affect: normal affect Results AMB Hemoglobin A1c AMB Hemoglobin A1c 6.6 % Last Edit by Dea Leyva CMA on 09/17/23 14:46 Assessment and Plan Assessment & Plan (1) Essential hypertension: Code(s): I10 - Essential (primary) hypertension Plan: Blood?pressure?is?well?controlled.??Goal?is?less?than?140/90 Continue?current?medication (2) Carpal tunnel syndrome: Code(s): G56.00 - Carpal tunnel syndrome, unspecified upper limb Plan: Can?use?splint?loosely?on?right?wrist?and?forearm?to?prevent?hyperflexion?while? sleeping (3) Imbalance: Code(s): R26.89 - Other abnormalities of gait and mobility Plan: Significant?imbalance?and?falls. She?has?lower?extremity?neuropathy?and?also?deconditioning?with?lower?extremit y?weakness Start?physical?therapy Continue?cane I?filled?out?handicap?placard?today. (4) Lower extremity weakness: Code(s): R29.898 - Other symptoms and signs involving the musculoskeletal system Plan: As?above (5) Chronic renal failure: Code(s): N18.9 - Chronic kidney disease, unspecified Plan: Mild?chronic?renal?failure Referred?to?nephrology (6) Diabetes mellitus with neuropathy: Code(s): E11.40 - Type 2 diabetes mellitus with diabetic neuropathy, unspecified Plan: A1c?6.6%.??Goal?is?less?than?7.0% Continue?current?medication?regime Continue?diabetic?diet (7) Adult general medical exam: Code(s): Z00.00 - Encounter for general adult medical examination without abnormal findings Plan: 83-year-old?female?presents?for?an?extended?exam Orders: Orders AMB Hemoglobin A1c Today Z13.9 - Encounter for screening, unspecified PT Evaluation and Treatment Today E11.40 - Type 2 diabetes mellitus with diabetic neuropathy, unspecified, R26.89 - Other abnormalities of gait and mobility, R29.898 - Other symptoms and signs involving the musculoskeletal system Referrals Nephrology Referral N18.9 - Chronic kidney disease, unspecified Coding Level of Care Code Est Pt Level 4 (76461) Diagnoses Essential hypertension I10 Carpal tunnel syndrome G56.00 Imbalance R26.89 Lower extremity weakness R29.898 Chronic renal failure N18.9 Diabetes mellitus with neuropathy E11.40 Adult general medical exam Z00.00
== END 2023-09-17 15:04 | disposition home or self-care (01) ==
PROVIDERS: PCP Family Medicine; Visit Provider Family Medicine
DX: E11.40 Type 2 diabetes mellitus with diabetic neuropathy, unspecified (principal); I12.9 Hypertensive chronic kidney disease with stage 1 through stage 4 chronic kidney disease, or unspecified chronic kidney disease; N18.9 Chronic kidney disease, unspecified; G56.00 Carpal tunnel syndrome, unspecified upper limb; R26.89 Other abnormalities of gait and mobility; R29.898 Other symptoms and signs involving the musculoskeletal system
CPT/HCPCS: 83036; 99214

== ENCOUNTER 2023-09-27 11:20 | Outpatient (AMB) | payer MEDICARE, OTHER, SELFPAY ==
[2023-09-27 11:24] VITALS: BP 114/58; PULSE 77; O2SAT 96; BMI 23.0
--- NOTE | 2023-09-27 11:24 | HO.NEPHOV_ITS ---
HPI HPI Comments History of Present Illness Details Kassy is a elderly woman with a history of longstanding diabetes mellitus. She has underlying CKD with the serum creatinine of around 1.3 mg/dL. For the last 2 years, since 2020, serum creatinine has been stable around 1.3 mg/dL. She has had no significant proteinuria. She has been referred for further management of underlying CKD. Today she has no new complaints. She recently had a dental implant about a week ago. She is currently on lisinopril 10 mg a day along with HCTZ 6.25 mg a day. She monitors blood pressure at home and occasionally blood pressure is on the low side and she feels lightheaded. She is on Jardiance as well. 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 Current occupational exposures/hazards: No Cognitive needs: Yes (cane) Hearing needs: No Vision needs: No Vital Signs 09/27/23 11:24 Height 5 ft 3 in Weight 130 lb BMI 23.0 BP 114/58 L Blood Pressure Location Rt brachial Position Sitting Pulse 77 Pulse Source Pulse Oximeter Pulse Oximetry (%) 96 Oxygen Delivery Method Room Air Physical Exam Vital Signs: Last Vital Signs Pulse 77 09/27/23 11:24 BP 114/58 L 09/27/23 11:24 Pulse Ox 96 09/27/23 11:24 Oxygen Delivery Method Room Air 09/27/23 11:24 BMI result Body Mass Index 23.0 Const General: comfortable Nutritional Appearance: well nourished Orientation/consciousness: patient oriented x3 HEENT Head: No normal to inspection Mouth: moist mucous membranes Neck Neck: Yes supple and Yes no JVD Resp Auscultation: clear to auscultation bilaterally, no rales and rub present Cardio Jugular venous distension: no JVD Palpation: no palpable S3 and no palpable S4 Heart sounds: no rubs GI Palpation (GI): Soft to palpation and nontender Percussion: No Fluid wave present General: Yes no CVA tenderness Back/Spine/Pelvis Back: no CVA tenderness Skin General skin exam: no rashes or lesions noted Neuro General: patient oriented x3 Extrem General: Yes no pedal edema and No clubbing Assessment & Plan Assessment & Plan (1) CKD (chronic kidney disease) stage 3, GFR 30-59 ml/min: Code(s): N18.30 - Chronic kidney disease, stage 3 unspecified (2) Essential hypertension: Code(s): I10 - Essential (primary) hypertension (3) Diabetes: Code(s): E11.9 - Type 2 diabetes mellitus without complications Plan Elderly woman with stable CKD 3 in the setting of longstanding diabetes mellitus and hypertension. Serum creatinine is has been stable on 1.3 mg/dL for almost 2 years. She has no significant proteinuria based on the recent urine studies. No imaging is available Will obtain renal ultrasonogram to rule out obstruction and to assess echogenicity of the kidneys. Based on the bland urine sediments I do not believe she has active glomerulonephritis or interstitial disease. The blood pressure is relatively low. We can safely discontinue hydrochlorothiazide 6.4 mg. Continue with lisinopril and increase her to keep monitoring blood pressure at home. As for diabetes mellitus recent A1c was under 7%. I have encouraged her to monitor blood sugar and maintain hemoglobin A1c less than 7%. Agree with using is SGLT2 inhibitors Orders: Orders Electrolytes 2 Weeks N18.30 - Chronic kidney disease, stage 3 unspecified Blood Urea Nitrogen 2 Weeks N18.30 - Chronic kidney disease, stage 3 unspecified Creatinine 2 Weeks N18.30 - Chronic kidney disease, stage 3 unspecified US renal BI Today N18.30 - Chronic kidney disease, stage 3 unspecified Calcium 2 Weeks N18.30 - Chronic kidney disease, stage 3 unspecified Medications: Discontinued hydrochlorothiazide Discontinued Reason: Doctor's Order 6.25 mg (1/2 x 12.5 mg) PO DAILY 90 days 45 tabs 3RF Coding Level of Care Code Est Pt Level 4 (42978) Diagnoses CKD (chronic kidney disease) stage 3, GFR 30-59 ml/min N18.30 Essential hypertension I10 Diabetes E11.9 Results Reviewed Nephrology Results: Hgb 13.6 g/dl (12.0-16.0) 09/11/23 WBC 7.0 X10*3/uL (4.8-10.8) 09/11/23 Plt Count 230 X10*3/uL (160-400) 09/11/23 Sodium 143 mmol/L (135-145) 09/11/23 Potassium 4.2 mmol/L (3.3-5.1) 09/11/23 Chloride 104 mmol/L (96-108) 09/11/23 Carbon Dioxide 30 mmol/L (22-29) H 09/11/23 BUN 28 mg/dL (9-16) H 09/11/23 Creatinine 1.30 mg/dL (0.5-1.4) 09/11/23 Calcium 9.9 mg/dL (8.4-10.2) 09/11/23 Urine Protein Negative mg/dL (Neg-Trace) 09/11/23 Urine Creatinine 104.01 mg/dL 09/11/23
== END 2023-09-27 11:52 | disposition home or self-care (01) ==
PROVIDERS: PCP Family Medicine; Visit Provider Internal Medicine Hypertension Specialist
DX: N18.30 Chronic kidney disease, stage 3 unspecified (principal); I10 Essential (primary) hypertension; E11.9 Type 2 diabetes mellitus without complications
CPT/HCPCS: 99214

== ENCOUNTER → 2023-09-27 11:20 | Outpatient (BNVA) | payer MEDICARE, OTHER, SELFPAY | PROVIDERS: PCP Family Medicine; Visit Provider Internal Medicine Hypertension Specialist | DX: E11.22 Type 2 diabetes mellitus with diabetic chronic kidney disease (principal); I12.9 Hypertensive chronic kidney disease with stage 1 through stage 4 chronic kidney disease, or unspecified chronic kidney disease; N18.30 Chronic kidney disease, stage 3 unspecified | CPT/HCPCS: 99212 ==

== ENCOUNTER 2023-10-18 14:51 | Outpatient (REF) | payer MEDICARE, OTHER, SELFPAY ==
--- NOTE | ~2023-10-18 | US_ITS ---
EXAMINATION: US RETROPERITONEAL LIMITED (RENAL ONLY) CLINICAL INFORMATION: Chronic kidney disease, stage 3 unspecified. COMPARISON: None available. TECHNIQUE: Real-time imaging of the kidneys. FINDINGS: RIGHT KIDNEY: 9.5 x 5.0 x 5.2 cm (SAG x AP x TRV). The kidney is normal in size and echogenicity. There are persistent lobulations. Renal cortical thickness is normal. No calculi or focal parenchymal lesions. No hydronephrosis. LEFT KIDNEY: 9.2 x 4.1 x 3.8 cm (SAG x AP x TRV). The kidney is normal in size and echogenicity. There are persistent lobulations. Renal cortical thickness is normal. No calculi or focal parenchymal lesions. No hydronephrosis. There is trace perinephric fluid towards the lower pole. US/US renal BI IMPRESSION: There is trace left renal lower pole perinephric fluid. The examination is otherwise unremarkable.
== END 2023-10-18 14:52 | disposition home or self-care (01) ==
LOC: HO.US 14:51
PROVIDERS: PCP Family Medicine; Visit Provider Internal Medicine Hypertension Specialist
DX: N18.30 Chronic kidney disease, stage 3 unspecified (principal)
CPT/HCPCS: 76775

== ENCOUNTER 2023-10-21 11:05 | Outpatient (REF) | payer MEDICARE, OTHER, SELFPAY ==
[2023-10-21 13:48] LABS: Appearance Urine Cloudy; Color Urine Yellow; Glucose Urine UA >=1000 mg/dL (Negative); Leukocyte Esterase Urine Moderate (2+) (Negative); Nitrite Urine Negative (Negative); PH 5.5 (5.0-9.0); Specific Gravity - Urine >= 1.030 (1.005-1.025); UMIC TRIGGER UA YES; Urine Blood Negative (Negative); Urine Ketones Negative (Negative); Urine Protein Negative (Neg-Trace)
[2023-10-21 13:52] LABS: Bacteria Urine None Seen (None Seen); Hyaline Casts Urine 0-2 /LPF (0-2); RBC Urine 0-2 /HPF (0-2); WBC Urine >50 /HPF (0-5)
[2023-10-21 14:11] LABS: Anion Gap 14 (12-20); Blood Urea Nitrogen 32 mg/dL (9-16); Calcium 9.9 mg/dL (8.4-10.2); Carbon Dioxide 30 mmol/L (22-29); Chloride 104 mmol/L (96-108); Estimated Glomerular Filt Rate 36; Potassium 4.6 mmol/L (3.3-5.1); Sodium 143 mmol/L (135-145)
== END 2023-10-21 11:06 | disposition home or self-care (01) ==
LOC: HO.WFDLDS 11:05
PROVIDERS: Family Medicine; Visit Provider Internal Medicine Hypertension Specialist
DX: Z00.00 Encounter for general adult medical examination without abnormal findings (principal); N18.30 Chronic kidney disease, stage 3 unspecified
CPT/HCPCS: 36415; 80051; 81001; 82310; 82565; 84520

== ENCOUNTER 2023-10-28 13:32 | Outpatient (AMB) | payer MEDICARE, OTHER, SELFPAY ==
[2023-10-28 13:36] VITALS: BP 108/50; PULSE 62; O2SAT 98; BMI 23.1
--- NOTE | 2023-10-28 13:36 | HO.NEPHOV_ITS ---
HPI HPI Comments History of Present Illness Details Kassy is a elderly woman with a history of longstanding diabetes mellitus. She has underlying CKD with the serum creatinine of around 1.3 mg/dL. For the last 2 years, since 2020, serum creatinine has been stable around 1.3 mg/dL. She has had no significant proteinuria. She has been referred for further management of underlying CKD. Today she has no new complaints. She recently had a dental implant about a week ago. She is currently on lisinopril 10 mg a day along with HCTZ 6.25 mg a day. She monitors blood pressure at home and occasionally blood pressure is on the low side and she feels lightheaded. She is on Jardiance as well. 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 Current occupational exposures/hazards: No Cognitive needs: Yes (cane) Hearing needs: No Vision needs: No Vital Signs 10/28/23 13:36 Height 5 ft 3 in Weight 130 lb 8 oz BMI 23.1 BP 108/50 L Blood Pressure Location Rt brachial Position Sitting Pulse 62 Pulse Source Pulse Oximeter Pulse Oximetry (%) 98 Oxygen Delivery Method Room Air Physical Exam Vital Signs: Last Vital Signs Pulse 62 10/28/23 13:36 BP 108/50 L 10/28/23 13:36 Pulse Ox 98 10/28/23 13:36 Oxygen Delivery Method Room Air 10/28/23 13:36 BMI result Body Mass Index 23.1 Const General: comfortable Nutritional Appearance: well nourished Orientation/consciousness: patient oriented x3 HEENT Head: No normal to inspection Mouth: moist mucous membranes Neck Neck: Yes supple and Yes no JVD Resp Auscultation: clear to auscultation bilaterally, no rales and rub present Cardio Jugular venous distension: no JVD Palpation: no palpable S3 and no palpable S4 Heart sounds: no rubs GI Palpation (GI): Soft to palpation and nontender Percussion: No Fluid wave present General: Yes no CVA tenderness Back/Spine/Pelvis Back: no CVA tenderness Skin General skin exam: no rashes or lesions noted Neuro General: patient oriented x3 Extrem General: Yes no pedal edema and No clubbing Assessment & Plan Assessment & Plan (1) CKD (chronic kidney disease) stage 3, GFR 30-59 ml/min: Code(s): N18.30 - Chronic kidney disease, stage 3 unspecified (2) Essential hypertension: Code(s): I10 - Essential (primary) hypertension (3) Diabetes: Code(s): E11.9 - Type 2 diabetes mellitus without complications Plan Elderly woman with stable CKD 3 in the setting of longstanding diabetes mellitus and hypertension. Serum creatinine is has been stable on 1.3 mg/dL for almost 2 years. She has no significant proteinuria based on the recent urine studies. renal ultrasonogram : No obstruction . Based on the bland urine sediments I do not believe she has active glomerulonephritis or interstitial disease. The blood pressure is relatively low. No need for hydrochlorothiazide Continue with lisinopril and increase her to keep monitoring blood pressure at home. As for diabetes mellitus recent A1c was under 7%. I have encouraged her to monitor blood sugar and maintain hemoglobin A1c less than 7%. Agree with using is SGLT2 inhibitors Orders: Orders Electrolytes 3 Months N18.30 - Chronic kidney disease, stage 3 unspecified Blood Urea Nitrogen 3 Months N18.30 - Chronic kidney disease, stage 3 unspecified Creatinine 3 Months N18.30 - Chronic kidney disease, stage 3 unspecified Calcium 3 Months N18.30 - Chronic kidney disease, stage 3 unspecified Coding Level of Care Code Est Pt Level 4 (59043) Diagnoses CKD (chronic kidney disease) stage 3, GFR 30-59 ml/min N18.30 Essential hypertension I10 Diabetes E11.9 Results Reviewed Nephrology Results: Hgb 13.6 g/dl (12.0-16.0) 09/11/23 WBC 7.0 X10*3/uL (4.8-10.8) 09/11/23 Plt Count 230 X10*3/uL (160-400) 09/11/23 Sodium 143 mmol/L (135-145) 10/21/23 Potassium 4.6 mmol/L (3.3-5.1) 10/21/23 Chloride 104 mmol/L (96-108) 10/21/23 Carbon Dioxide 30 mmol/L (22-29) H 10/21/23 BUN 32 mg/dL (9-16) H 10/21/23 Creatinine 1.39 mg/dL (0.5-1.4) 10/21/23 Calcium 9.9 mg/dL (8.4-10.2) 10/21/23 Urine Protein Negative mg/dL (Neg-Trace) 10/21/23 Urine Creatinine 104.01 mg/dL 09/11/23 Renal US 10/18/23
== END 2023-10-28 13:58 | disposition home or self-care (01) ==
PROVIDERS: PCP Family Medicine; Visit Provider Internal Medicine Hypertension Specialist
DX: N18.30 Chronic kidney disease, stage 3 unspecified (principal); I10 Essential (primary) hypertension; E11.9 Type 2 diabetes mellitus without complications
CPT/HCPCS: 99214

== ENCOUNTER → 2023-10-28 13:32 | Outpatient (BNVA) | payer MEDICARE, OTHER, SELFPAY | PROVIDERS: PCP Family Medicine; Visit Provider Internal Medicine Hypertension Specialist | DX: E11.22 Type 2 diabetes mellitus with diabetic chronic kidney disease (principal); I12.9 Hypertensive chronic kidney disease with stage 1 through stage 4 chronic kidney disease, or unspecified chronic kidney disease; N18.30 Chronic kidney disease, stage 3 unspecified | CPT/HCPCS: 99212 ==

== ENCOUNTER 2023-12-05 11:00 | Outpatient (RCR) | payer MEDICARE, OTHER, SELFPAY ==
[2023-10-29 10:51] VITALS: BP 90/64; PULSE 70; O2SAT 99
--- NOTE | 2023-12-05 14:57 | MHC.PT.DC ---
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 Bourne on 09/19/23 Date of Surgery: Date of Evaluation: 10/29/23 Date of Discharge: 12/05/23 Treatments to Date: Cancellations to Date: No Shows to Date: Discharge Status: Discharge Summary: 12/05/23: Pt doing well with regard to HEP, feels her symptoms in her hip are better. No longer having difficulty with transitional movements, scooting, or bridging. Pt has met STG/LTG with therapy to date. She continues to use std cane for community ambulation. She has purchased a restorator for home use and reports daily participation of her exercises. She is scheduled to see her PCP Dr. Bourne next week for a follow-up. Encouragement and education to use cane at all times, educated re: goals of therapy, findings of evaluation and indications for treatment 12/03/23: Pt demonstrating improvements in strength, confidence in ambulation. 12/03/23: Pt demonstrating good tolerance for ther-ex, reports overall reduction in sx. 11/28/23: Pt challenged with sit<>stand and stand<>sit, encouraged use of table in front of her at home when sitting for safety. Issued RTB for rows/trunk exercises. Pt continues to be TTP L greater trochanter, reduced sx with massage/MHP. Weakness L hip ext/abd persists but improving strength. Continues to use std cane for balance. 11/21/23: Pt exhibits signs and sx consistent with L piriformis tightness following increased stair climbing today. Initiated gentle STM and stretching which pt verbalized alleviated sx this date HEP sheets issued. Pt verbalized reduction in sx post session. 2/8/24: Pt fatigue with exercises, demonstrating good tolerance. Pt highly motivated for participation. 11/12/23:Positive response to exercises completed in the office. Written HEP noted. L side weaker than R in hip abd/ext. Pt is a pleasant, 83 y/o female with PMH significant for HTN, DMII, history of neck surgery, hx R knee meniscal tear history of diabetic neuropathy. Pt expressing sudden recent loss of her in August of 2023 with close support of living next to her daughter. Pt presents to PT, referred to PT from her PCP Dr. Bourne in 09/28, following history of two falls in 2022. Pt exhibits decreased gait stability, poor strength of L hip abductors, generalized core weakness/conditioning, weakness R hip extensors R>L, and impaired sensation in her feet. She exhibits poor balance reactions and is heavily reliant on UE for support. She was educated in the benefits of attending skilled PT services at a frequency of 2x/week x 4-6 weeks. She was very motivated and eager to participate once we discussed how therapy can help her. She exhibits excellent rehab potential. Electronically signed by: Deisi Eduardo, PT, DPT Please sign and return to therapist. Thank you for your referral.
== END 2023-12-05 14:57 | disposition home or self-care (01) ==
LOC: HO.PTWFD 11:00
PROVIDERS: PCP Family Medicine; Visit Provider Family Medicine
DX: R29.898 Other symptoms and signs involving the musculoskeletal system (principal); R26.89 Other abnormalities of gait and mobility; E11.40 Type 2 diabetes mellitus with diabetic neuropathy, unspecified
CPT/HCPCS: 97110; 97140; 97162; 97535

== ENCOUNTER 2024-01-07 14:22 | Outpatient (AMB) | payer MEDICARE, OTHER, SELFPAY ==
[2024-01-07 14:23] VITALS: BP 120/62; PULSE 51; O2SAT 97; BMI 24.1
--- NOTE | 2024-01-07 14:23 | A.OFFPC_ITS ---
Vital Signs 01/07/24 14:23 Height 5 ft 3 in Weight 136 lb BMI 24.1 BP 120/62 Blood Pressure Location Lt brachial Position Sitting Pulse 51 Pulse Source Pulse Oximeter Pulse Oximetry (%) 97 Oxygen Delivery Method Room Air Intake Visit Reasons: f/u diabetes and hypertension Intake Note: Patient is here for ollow up on diabetes and hypertension. Allergies levofloxacin [From Levaquin] Allergy (Mild, Verified 01/07/24 14:30) hives Medication List - Last Reconciled 01/07/24 by Scot Bourne MD amitriptyline 50 mg PO BEDTIME 90 days atorvastatin 20 mg PO BEDTIME betamethasone dipropionate 0.05% 1 appl topical BID PRN 14 days blood sugar diagnostic (True Metrix Glucose Test Strip) Once a day As directed, to test blood sugar. 90 days cetirizine (All Day Allergy (cetirizine)) 10 mg PO DAILY PRN 30 days dulaglutide (Trulicity) 0.75 mg (0.5 mL) subcut QWEEK empagliflozin (Jardiance) 20 mg (2 x 10 mg) PO DAILY 90 days gabapentin 300 mg PO BID 90 days glyburide 5 mg PO BID 90 days [id number]-zdxjbyg 24,000-76,000 -120,000 unit (Creon) 1 cap PO BID 90 days lisinopril 10 mg PO DAILY 90 days metronidazole 1% 1 appl topical BEDTIME 30 days Tobacco use date assessed: 01/07/24 Fall risk assessment: No Falls in past year Last assessed Fall Risk: 01/07/24 Dental Screening Dental Screen Date: 01/07/24 Did you have a dental visit in the last 12 months?: Yes Did you have a dental problem in the last 6 months where you did not have access to dental care?: No Was dental information given to patient?: Patient has dentist HPI f/u diabetes and hypertension HPI Details 83 y/o female presents to f/u diabetes a nd hypertension. Last A1c 09/17/23 6.6%. She is on Jardiance 20mg, Trulicity 0.75mg, glybyuride 5mg b.i.d. A1c today 01/07/24 7.4%. Blood pressure today 120/62. She is on lisinopril 10mg daily. 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 Rey Manley, Kalyani Mccallum, Jameel Peterson and colleagues, with an educational cm from [employer]. Physical exam (Primary Care) Vital Signs: Last Vital Signs Pulse 51 01/07/24 14:23 BP 120/62 01/07/24 14:23 Pulse Ox 97 01/07/24 14:23 Oxygen Delivery Method Room Air 01/07/24 14:23 BMI result Body Mass Index 24.1 Tobacco/Smoking Status: Tobacco use Status Tobacco use date assessed 01/07/24 01/07/24 14:38 Patient Tobacco Use Status Former Tobacco user 01/07/24 14:24 e-Cigarette/Vaping Use Never Used 01/07/24 14:24 Thrive Assessment: Date of Thrive Assessment Date Thrive assessed 05/24/22 01/07/24 14:24 Results AMB Hemoglobin A1c AMB Hemoglobin A1c 7.4 % Last Edit by Dea Leyva CMA on 01/07/24 14:50 Results Reviewed Results Reviewed: Laboratory Last Values Hgb A1c (Clinic) 7.4 % (4.0-6.0) H 01/07/24 14:49 Assessment and Plan Assessment & Plan (1) Diabetes: Code(s): E11.9 - Type 2 diabetes mellitus without complications Plan: A1c?climbed?to?7.4% She?has?been?unable?to?get?her?Trulicity?and?Ozempic?had?been?declined?by?her?in surance Spoke?with?mA?and?she?determined?that?Trulicity?0.75?mg ?dose?is?back?in?stock?so?I?have?recent?this She?will?continue?her?other?medications?as?prescribed. Will?follow- up?in?1?month?to?ensure?that?she?has?medication?and?blood?sugars?are?improving Patient ?should?have?Trulicity?or?similar?medication?as?her?diabetes?was?well?controlled ?on?this?and?she?has?renal?disease.??Will?get?PA?if?needed (2) Essential hypertension: Code(s): I10 - Essential (primary) hypertension Plan: Blood?pressure?is?well?controlled.??Goal?is?less?than?140/90 Continue?current?medication (3) Diabetes mellitus with neuropathy: Code(s): E11.40 - Type 2 diabetes mellitus with diabetic neuropathy, unspecified Plan: As?above Orders: Orders AMB Hemoglobin A1c Today Z13.9 - Encounter for screening, unspecified Medications: Changed From dulaglutide (Trulicity) 0.75 mg (0.5 mL) subcut QWEEK 2 mL 0RF E11.40 - Type 2 diabetes mellitus with diabetic neuropathy, unspecified, N18.30 - Chronic kidney disease, stage 3 unspecified To dulaglutide (Trulicity) 0.75 mg (0.5 mL) subcut QWEEK 28 days 2 mL 3RF E11.40 - Type 2 diabetes mellitus with diabetic neuropathy, unspecified, N18.30 - Chronic kidney disease, stage 3 unspecified Coding Level of Care Code Est Pt Level 3 (47141) Diagnoses Diabetes E11.9 Essential hypertension I10 Diabetes mellitus with neuropathy E11.40
== END 2024-01-07 15:14 | disposition home or self-care (01) ==
PROVIDERS: PCP Family Medicine; Visit Provider Family Medicine
DX: E11.40 Type 2 diabetes mellitus with diabetic neuropathy, unspecified (principal); I10 Essential (primary) hypertension
CPT/HCPCS: 83036; 99213

== ENCOUNTER 2024-03-23 11:01 | Outpatient (REF) | payer MEDICARE, OTHER, SELFPAY ==
[2024-03-23 15:03] LABS: Appearance Urine Cloudy; Color Urine Yellow; Glucose Urine UA >=1000 mg/dL (Negative); Leukocyte Esterase Urine Moderate (2+) (Negative); Nitrite Urine Negative (Negative); PH 5.5 (5.0-9.0); UMIC TRIGGER UA YES; Urine Blood Negative (Negative); Urine Ketones Negative (Negative); Urine Protein Negative (Neg-Trace)
[2024-03-23 15:08] LABS: Bacteria Urine 4+ (None Seen); Hyaline Casts Urine 0-2 /LPF (0-2); RBC Urine 0-2 /HPF (0-2); Squamous Epithelial Cell Urine >20 /HPF (0-2); WBC Urine >50 /HPF (0-5)
[2024-03-23 15:24] LABS: Anion Gap 15 (12-20); Blood Urea Nitrogen 26 mg/dL (9-16); Calcium 10.4 mg/dL (8.4-10.2); Carbon Dioxide 28 mmol/L (22-29); Chloride 105 mmol/L (96-108); Estimated Glomerular Filt Rate 38; Potassium 5.1 mmol/L (3.3-5.1); Sodium 143 mmol/L (135-145)
== END 2024-03-23 11:02 | disposition home or self-care (01) ==
LOC: HO.WFDLDS 11:01
PROVIDERS: Internal Medicine Hypertension Specialist; Visit Provider Family Medicine
DX: N18.30 Chronic kidney disease, stage 3 unspecified (principal)
CPT/HCPCS: 36415; 80051; 81001; 81003; 82310; 82565; 84520

== ENCOUNTER 2024-03-25 10:17 | Outpatient (AMB) | payer MEDICARE, OTHER, SELFPAY ==
[2024-03-25 10:31] VITALS: BP 122/70; PULSE 72; O2SAT 97; BMI 23.4
--- NOTE | 2024-03-25 10:31 | A.OFFPC_ITS ---
Vital Signs 03/25/24 10:31 Height 5 ft 3 in Weight 132 lb 2 oz BMI 23.4 BP 122/70 Blood Pressure Location Lt brachial Position Sitting Pulse 72 Pulse Source Pulse Oximeter Pulse Oximetry (%) 97 Oxygen Delivery Method Room Air Intake Visit Reasons: F/U diabetes Intake Note: Patient is here to follow up on her diabetes. Allergies levofloxacin [From Levaquin] Allergy (Mild, Verified 03/25/24 10:33) hives Medication List - Last Reconciled 03/25/24 by Scot Bourne MD amitriptyline 50 mg PO BEDTIME 90 days atorvastatin 20 mg PO BEDTIME betamethasone dipropionate 0.05% 1 appl topical BID PRN 14 days blood sugar diagnostic (True Metrix Glucose Test Strip) Once a day As directed, to test blood sugar. 90 days cetirizine (All Day Allergy (cetirizine)) 10 mg PO DAILY PRN 30 days dulaglutide (Trulicity) 0.75 mg (0.5 mL) subcut QWEEK 28 days empagliflozin (Jardiance) 20 mg (2 x 10 mg) PO DAILY 90 days gabapentin 300 mg PO BID 90 days glyburide 5 mg PO BID 90 days hcibfc-[id number]-wcvkjeq 24,000-76,000 -120,000 unit (Creon) 1 cap PO BID 90 days lisinopril 10 mg PO DAILY 90 days metronidazole 1% 1 appl topical BEDTIME 30 days Tobacco use date assessed: 03/25/24 Fall risk assessment: No Falls in past year Last assessed Fall Risk: 03/25/24 Dental Screening Dental Screen Date: 01/07/24 HPI F/U diabetes HPI Details 84 y/o female presents to f/u diabetes. Last A1c 01/07/24 7.4%. She is on Trulicity 0.75mg, Jardiance 20mg, glyburide 5mg. She reports morning blood sugars in the 95s-110s. Blood pressure today 122/70. She is on lisinopril 10mg daily. She continues to f/u with Dr. Flores nephrology for her CKD and has an upcoming appt. with them later this week. HPI Comments History of Present Illness Details Documentation assistance for Scot Bourne MD, was provided by Yan Aguilera,? Esl Instructor on 03/25/2024 at 10:51 AM EST. I, Dr. Bourne, have read, observed, and verified documentation. 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 1. Little interest or pleasure in doing things: not at all 2. Feeling down, depressed, or hopeless: not at all 3. Trouble falling or staying asleep, or sleeping too much: not at all 4. Feeling tired or having little energy: not at all 5. Poor appetite or overeating: not at all 6. Feeling bad about yourself - or that you are a failure or have let yourself or your family down: not at all 7. Trouble concentrating on things, such as reading the newspaper or watching television: not at all 8. Moving or speaking so slowly that other people could have noticed. Or the opposite - being so fidgety or restless that you have been moving around a lot more than usual: not at all 9. Thoughts that you would be better off or of hurting yourself in some way: not at all Total score: 0 Depression Screening Interpretation: Negative Depression Screening Done: Yes 12380 - PHQ-9 Billing: Yes Source: Developed by Drs. Rey Manley, Kalyani Mccallum, Jameel Peterson and colleagues, with an educational cm from [email or web address]. Thrive Questionnaire Date Thrive assessed: 03/25/24 I am a: Patient What is your living situation today?: I have a steady place to live Within the past 12 months, did the food you bought not last and you didn't have the money to get more?: Never true Within the past 12 months, did you worry whether your food would run out before you got money to buy more?: Never true Do you have trouble paying for medicines?: No Do you have trouble getting transportation to medical appointments?: No Do you have trouble paying your heating and electricity bill?: No Do you have trouble taking care of your child, family member or friend?: No Do you have trouble with day-to-day activities such as bathing, preparing meals, shopping, managing finances, etc.?: No Are you currently unemployed and looking for a job?: No Are you interested in more education?: No THRIVE Score: 0 AUDIT C Alcohol Use Questionnaire (AUDIT-C) 1. How often do you have a drink containing alcohol?: Monthly or less 2. How many drinks containing alcohol do you have on a typical day when you are drinking?: 1 or 2 3. How often do you have six or more drinks on one occasion?: Never Total Score: 1 MORA-7 AMB Questionnaire MORA-7 Date MORA - 7 assessed: 03/25/24 Feeling nervous, anxious, or on edge: 0 = Not at all Not being able to stop or control worryin = Not at all Worrying too much about different things: 0 = Not at all Trouble relaxin = Not at all Being so restless that it is hard to sit still: 0 = Not at all Becoming easily annoyed or irritable: 0 = Not at all Feeling afraid as if something awful might happen: 0 = Not at all Total MORA-7 score (0-4 normal; 5-9 mild; 10-14 moderate; 15-21 severe): 0 Source: Developed by Drs. Rey Manley, Kalyani Mccallum, Jameel Peterson and colleagues, with an educational cm from [email or web address]. MORA-7 Assessment Billing MORA-7 Assessment Tool: MORA-7 Assessment 43298 Review of Systems Const Denies chills, Denies fatigue, Denies fever(s), Denies headache(s) and Denies weakness ENT Denies dizziness and Denies headache(s) Card Denies chest pain, Denies lightheadedness, Denies dyspnea and Denies other (Palpitations) Resp Denies cough, Denies dyspnea, Denies wheezing and Denies other ( shortness of breath) Musc Denies numbness and Denies tingling Neuro Denies dizziness, Denies headache(s), Denies numbness, Denies tingling, Denies paresthesias and Denies weakness Psych Denies anxiety and Denies depression Endo Denies fatigue Aller/Immun Denies wheezing Physical exam (Primary Care) Vital Signs: Last Vital Signs Pulse 72 03/25/24 10:31 BP 122/70 03/25/24 10:31 Pulse Ox 97 03/25/24 10:31 Oxygen Delivery Method Room Air 03/25/24 10:31 BMI result Body Mass Index 23.4 Tobacco/Smoking Status: Tobacco use Status Tobacco use date assessed 03/25/24 03/25/24 10:35 Patient Tobacco Use Status Former Tobacco user 03/25/24 10:35 e-Cigarette/Vaping Use Never Used 03/25/24 10:35 PHQ-9: PHQ-9 Score PHQ-9: Total score 0 03/25/24 10:44 Depression Screening Interpretation: Negative Thrive Assessment: Date of Thrive Assessment Date Thrive assessed 03/25/24 03/25/24 10:40 Const General: no acute distress and well developed Nutritional Appearance: well nourished Orientation/consciousness: patient oriented x3 [facility] Head: Yes normocephalic and Yes atraumatic Eyes General: appearance normal, both eyes and all related structures Pupils: Equal, round and reactive pupils present EOM: EOMs intact bilaterally Resp Effort & Inspection: normal respiratory effort Auscultation: clear to auscultation bilaterally Cardio Rate: regular rate Rhythm: regular rhythm Heart sounds: S1 normal heart sound present, S2 normal heart sound present, no gallops, no murmurs and no rubs Neuro General: patient oriented x3 and gait normal Cranial nerves: Yes Equal, round and reactive pupils present Psych Affect: normal affect Assessment and Plan Assessment & Plan (1) Diabetes: Code(s): E11.9 - Type 2 diabetes mellitus without complications Plan: Patient?had?been?without?her?Trulicity?at?prior?visit?2?months?ago.??Her?A1c?was ?above?7.0% Now?has?Jardiance,?Trulicity?and?glyburide?as?prescribed No?problems?with?her?medications. Morning?blood?sugars?ranging?from?about?95?to?120 Appears?to?have?good?control.??Continue?current?medication Continue?diabetic?diet She?will?return?in?a?few?months?to?follow-up?and?will?be?due?for?A1c (2) Essential hypertension: Code(s): I10 - Essential (primary) hypertension Plan: Blood?pressure?is?controlled.??Goal?is?less?than?140/90 Continue?current?medication (3) CKD (chronic kidney disease) stage 3, GFR 30-59 ml/min: Code(s): N18.30 - Chronic kidney disease, stage 3 unspecified Plan: Renal?function?appears?stable She?has?an?upcoming?appointment?with?her?booker?later?this?week Follow-up?with?nephrology?as?recommended Medications: Refilled gabapentin 300 mg PO BID 90 days 180 caps 4RF Coding Level of Care Code Est Pt Level 3 (06763) Diagnoses Diabetes E11.9 Essential hypertension I10 CKD (chronic kidney disease) stage 3, GFR 30-59 ml/min N18.30 Additional Codes MORA-7 Assessment Billing - MORA-7 Assessment Tool: MORA-7 Assessment 69132 ([id number])
== END 2024-03-25 10:57 | disposition home or self-care (01) ==
PROVIDERS: PCP Family Medicine; Visit Provider Family Medicine
DX: I12.9 Hypertensive chronic kidney disease with stage 1 through stage 4 chronic kidney disease, or unspecified chronic kidney disease (principal); E11.22 Type 2 diabetes mellitus with diabetic chronic kidney disease; N18.30 Chronic kidney disease, stage 3 unspecified
CPT/HCPCS: 99214

== ENCOUNTER 2024-03-30 11:09 | Outpatient (AMB) | payer MEDICARE, OTHER, SELFPAY ==
[2024-03-30 11:01] VITALS: BP 120/62; PULSE 48; O2SAT 94; BMI 22.8
--- NOTE | 2024-03-30 11:01 | HO.NEPHOV ---
Vital Signs 03/30/24 11:01 Height 5 ft 3 in Weight 129 lb BMI 22.8 BP 120/62 Blood Pressure Location Lt brachial Position Sitting Pulse 48 L Pulse Source Pulse Oximeter Pulse Oximetry (%) 94 Oxygen Delivery Method Room Air Intake Visit Reasons: CKD/ 5 MO FU/ LVM Certified Court Interpreter Required: No Accompanied by: Self / Same As Patient Allergies levofloxacin [From Levaquin] Allergy (Mild, Verified 03/30/24 11:04) hives Medication List - Last Reconciled 03/30/24 by Dilshad Flores MD amitriptyline 50 mg PO BEDTIME 90 days atorvastatin 20 mg PO BEDTIME blood sugar diagnostic (True Metrix Glucose Test Strip) Once a day As directed, to test blood sugar. 90 days dulaglutide (Trulicity) 0.75 mg (0.5 mL) subcut QWEEK 28 days empagliflozin (Jardiance) 20 mg (2 x 10 mg) PO DAILY 90 days gabapentin 300 mg PO BID 90 days glyburide 5 mg PO BID 90 days lisinopril 10 mg PO DAILY 90 days mecobalamin (vitamin B12) mcg PO HPI Comments Details: Kassy is a elderly woman with a history of longstanding diabetes mellitus. She has underlying CKD with the serum creatinine of around 1.3 mg/dL. For the last 2 years, since 2020, serum creatinine has been stable around 1.3 mg/dL. She has had no significant proteinuria. She has been referred for further management of underlying CKD. She monitors blood pressure at home and occasionally blood pressure is on the low side and she feels lightheaded. She is on Jardiance as well. Overall doing OK. 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 Current occupational exposures/hazards: No Cognitive needs: Yes (cane) Hearing needs: No Vision needs: No Review of Systems Const Denies fever(s) and Denies weight loss Card Denies chest pain Resp Denies cough and Denies hemoptysis GI Denies abdominal pain, Denies diarrhea and Denies nausea Musc Denies back pain Neuro Denies focal weakness Physical Exam Vital Signs: Last Vital Signs Pulse 48 L 03/30/24 11:01 BP 120/62 03/30/24 11:01 Pulse Ox 94 03/30/24 11:01 Oxygen Delivery Method Room Air 03/30/24 11:01 BMI result Body Mass Index 22.8 Results Reviewed Nephrology Results: Hgb 13.6 g/dl (12.0-16.0) 09/11/23 WBC 7.0 X10*3/uL (4.8-10.8) 09/11/23 Plt Count 230 X10*3/uL (160-400) 09/11/23 Sodium 143 mmol/L (135-145) 03/23/24 Potassium 5.1 mmol/L (3.3-5.1) 03/23/24 Chloride 105 mmol/L (96-108) 03/23/24 Carbon Dioxide 28 mmol/L (22-29) 03/23/24 BUN 26 mg/dL (9-16) H 03/23/24 Creatinine 1.34 mg/dL (0.5-1.4) 03/23/24 Calcium 10.4 mg/dL (8.4-10.2) H 03/23/24 Urine Protein Negative mg/dL (Neg-Trace) 03/23/24 Urine Creatinine 104.01 mg/dL 09/11/23 Renal US 10/18/23 Assessment & Plan Assessment & Plan (1) CKD (chronic kidney disease) stage 3, GFR 30-59 ml/min: Code(s): N18.30 - Chronic kidney disease, stage 3 unspecified Category: Medical (2) Essential hypertension: Code(s): I10 - Essential (primary) hypertension Category: Medical (3) Diabetes: Code(s): E11.9 - Type 2 diabetes mellitus without complications Category: Medical Plan Elderly woman with stable CKD 3 in the setting of longstanding diabetes mellitus and hypertension. Serum creatinine is has been stable on 1.3 mg/dL for almost 2 years. She has no significant proteinuria based on the recent urine studies. renal ultrasonogram : No obstruction . Based on the bland urine sediments I do not believe she has active glomerulonephritis or interstitial disease. The blood pressure is acceptable No need for hydrochlorothiazide Continue with lisinopril and encouraged her to keep monitoring blood pressure at home. As for diabetes mellitus recent A1c was under 7%. I have encouraged her to monitor blood sugar and maintain hemoglobin A1c less than 7%. Agree with using is SGLT2 inhibitors Mild hypercalcemia Will repeat along with IPTH prior to next visit Orders: Orders Magnesium 6 Months N18.30 - Chronic kidney disease, stage 3 unspecified Basic Metabolic Panel 6 Months N18.30 - Chronic kidney disease, stage 3 unspecified Parathyroid Hormone Intact 6 Months N18.30 - Chronic kidney disease, stage 3 unspecified Complete Blood Count Auto Diff 6 Months N18.30 - Chronic kidney disease, stage 3 unspecified Coding Level of Care Code Est Pt Level 4 (34306) Diagnoses CKD (chronic kidney disease) stage 3, GFR 30-59 ml/min N18.30 Essential hypertension I10 Diabetes E11.9
== END 2024-03-30 11:23 | disposition home or self-care (01) ==
LOC: HO.HKA 11:09
PROVIDERS: PCP Family Medicine; Visit Provider Internal Medicine Hypertension Specialist
DX: N18.30 Chronic kidney disease, stage 3 unspecified (principal); I10 Essential (primary) hypertension; E11.9 Type 2 diabetes mellitus without complications
CPT/HCPCS: 99214

== ENCOUNTER → 2024-03-30 11:09 | Outpatient (BNVA) | payer MEDICARE, OTHER, SELFPAY | PROVIDERS: PCP Family Medicine; Visit Provider Internal Medicine Hypertension Specialist | DX: I12.9 Hypertensive chronic kidney disease with stage 1 through stage 4 chronic kidney disease, or unspecified chronic kidney disease (principal); E11.22 Type 2 diabetes mellitus with diabetic chronic kidney disease; N18.30 Chronic kidney disease, stage 3 unspecified | CPT/HCPCS: 99212 ==

== ENCOUNTER 2024-08-14 09:50 | Outpatient (REF) | payer MEDICARE, OTHER, SELFPAY ==
[2024-08-14 11:02] LABS: Appearance Urine Clear; Color Urine Yellow; Glucose Urine UA 500 mg/dL (Negative); Leukocyte Esterase Urine Moderate (2+) (Negative); Nitrite Urine Negative (Negative); PH 6.5 (5.0-9.0); UMIC TRIGGER UA YES; Urine Blood Negative (Negative); Urine Ketones Negative (Negative); Urine Protein Negative (Neg-Trace)
[2024-08-14 11:07] LABS: Bacteria Urine Trace (None Seen); Hyaline Casts Urine 0-2 /LPF (0-2); RBC Urine 0-2 /HPF (0-2); WBC Urine >50 /HPF (0-5)
[2024-08-14 12:20] LABS: Creatinine Urine 72.22 mg/dL
[2024-08-14 12:34] LABS: Anion Gap 15 (12-20); Blood Urea Nitrogen 28 mg/dL (9-16); Calcium 9.9 mg/dL (8.4-10.2); Carbon Dioxide 28 mmol/L (22-29); Chloride 105 mmol/L (96-108); Estimated Glomerular Filt Rate 37; Glucose Random 99 mg/dL (60-115); Potassium 4.7 mmol/L (3.3-5.1); Sodium 143 mmol/L (135-145)
== END 2024-08-14 09:51 | disposition home or self-care (01) ==
LOC: HO.WFDLDS 09:50
PROVIDERS: Visit Provider Family Medicine
DX: Z00.00 Encounter for general adult medical examination without abnormal findings (principal); I10 Essential (primary) hypertension
CPT/HCPCS: 36415; 80048; 81001; 82043; 82570

== ENCOUNTER 2024-08-21 14:35 | Outpatient (AMB) | payer MEDICARE, OTHER, SELFPAY ==
--- NOTE | 2024-08-21 14:57 | MHC.PC.OV ---
Vital Signs 08/21/24 14:59 Height 5 ft 3 in Weight 134 lb BMI 23.7 BP 115/56 L Blood Pressure Location Rt brachial Position Sitting Respiration 16 Pulse 72 Pulse Source Pulse Oximeter Temp 97.5 F Temp Source Temporal Artery Scan Pulse Oximetry (%) 98 Oxygen Delivery Method Room Air Intake Visit Reasons: fu dm hypertension Intake Note: DM f/u and HTN Allergies levofloxacin [From Levaquin] Allergy (Mild, Verified 08/21/24 14:58) hives Medication List - Last Reconciled 08/21/24 by Scot Bourne MD amitriptyline 50 mg PO BEDTIME 90 days atorvastatin 20 mg PO BEDTIME blood sugar diagnostic (True Metrix Glucose Test Strip) Once a day As directed, to test blood sugar. 90 days dulaglutide (Trulicity) 0.75 mg (0.5 mL) subcut QWEEK 28 days empagliflozin (Jardiance) 20 mg (2 x 10 mg) PO DAILY 90 days gabapentin 300 mg PO BID 90 days glyburide 5 mg PO BID 90 days lisinopril 10 mg PO DAILY 90 days mecobalamin (vitamin B12) mcg PO Tobacco use date assessed: 03/25/24 Dental Screening Dental Screen Date: 01/07/24 HPI fu dm hypertension HPI Details 84 y/o female presents to f/u diabetes, hypertension. Blood pressure today 115/56, 72p. She is on lisinopril 10mg daily. A1c 08/21/24 6.5%, improved from 7.4% from prior. She is on Jardiance 20mg, Trulicity 0.75mg, glyburide 5mg b.i.d. Notes numbness/tingling pain of arms, shoulders. HPI Comments History of Present Illness Details Documentation assistance for Scot Bourne MD, was provided by Yan Aguilera,? Metal Bench Patternmaker on 08/21/2024 at 3:43 PM EST. I, Dr. Bourne, have read, observed, and verified documentation. 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 1. Little interest or pleasure in doing things: not at all 2. Feeling down, depressed, or hopeless: not at all 3. Trouble falling or staying asleep, or sleeping too much: not at all 4. Feeling tired or having little energy: not at all 5. Poor appetite or overeating: not at all 6. Feeling bad about yourself - or that you are a failure or have let yourself or your family down: not at all 7. Trouble concentrating on things, such as reading the newspaper or watching television: not at all 8. Moving or speaking so slowly that other people could have noticed. Or the opposite - being so fidgety or restless that you have been moving around a lot more than usual: not at all 9. Thoughts that you would be better off or of hurting yourself in some way: not at all Total score: 0 Source: Developed by Drs. Rey Manley, Kalyani Mccallum, Jameel Peterson and colleagues, with an educational cm from [employer]. Thrive Questionnaire Date Thrive assessed: 03/25/24 I am a: Patient What is your living situation today?: I have a steady place to live Within the past 12 months, did the food you bought not last and you didn't have the money to get more?: Never true Within the past 12 months, did you worry whether your food would run out before you got money to buy more?: Never true Do you have trouble paying for medicines?: No Do you have trouble getting transportation to medical appointments?: No Do you have trouble paying your heating and electricity bill?: No Do you have trouble taking care of your child, family member or friend?: No Do you have trouble with day-to-day activities such as bathing, preparing meals, shopping, managing finances, etc.?: No Are you currently unemployed and looking for a job?: No Are you interested in more education?: No Please select the resources that you would like help with: None Currently or been in a relationship where the following occur: No concerns reported THRIVE Score: 0 AUDIT C Alcohol Use Questionnaire (AUDIT-C) 1. How often do you have a drink containing alcohol?: Monthly or less 2. How many drinks containing alcohol do you have on a typical day when you are drinking?: 1 or 2 3. How often do you have six or more drinks on one occasion?: Never Total Score: 1 MORA-7 AMB Questionnaire MORA-7 Date MORA - 7 assessed: 03/25/24 Feeling nervous, anxious, or on edge: 0 = Not at all Not being able to stop or control worryin = Not at all Worrying too much about different things: 0 = Not at all Trouble relaxin = Not at all Being so restless that it is hard to sit still: 0 = Not at all Becoming easily annoyed or irritable: 0 = Not at all Feeling afraid as if something awful might happen: 0 = Not at all Total MORA-7 score (0-4 normal; 5-9 mild; 10-14 moderate; 15-21 severe): 0 Source: Developed by Drs. Rey Manley, Kalyani Mccallum, Jameel Peterson and colleagues, with an educational cm from [employer]. Review of Systems Const Denies chills, Denies fatigue, Denies fever(s), Denies headache(s) and Denies weakness ENT Denies dizziness and Denies headache(s) Card Denies dyspnea Resp Denies cough, Denies dyspnea, Denies wheezing and Denies other (shortness of breath) Musc Denies numbness and Denies tingling Neuro Denies dizziness, Denies headache(s), Denies numbness, Denies tingling and Denies weakness Psych Denies anxiety and Denies depression Endo Denies fatigue Aller/Immun Denies wheezing Physical exam (Primary Care) Vital Signs: Last Vital Signs Temp 97.5 F 08/21/24 14:59 Pulse 72 08/21/24 14:59 Resp 16 08/21/24 14:59 BP 115/56 L 08/21/24 14:59 Pulse Ox 98 08/21/24 14:59 Oxygen Delivery Method Room Air 08/21/24 14:59 BMI result Body Mass Index 23.7 Tobacco/Smoking Status: Tobacco use Status Tobacco use date assessed 03/25/24 08/21/24 15:03 Patient Tobacco Use Status Former Tobacco user 08/21/24 15:03 e-Cigarette/Vaping Use Never Used 08/21/24 15:03 PHQ-9: PHQ-9 Score PHQ-9: Total score 0 08/21/24 15:03 Thrive Assessment: Date of Thrive Assessment Date Thrive assessed 03/25/24 08/21/24 15:03 Currently or been in a relationship where the following occur: No concerns reported Const General: well developed; No acute distress Nutritional Appearance: well nourished Orientation/consciousness: patient oriented x3 HENMT Head: Yes normocephalic and Yes atraumatic Eyes General: appearance normal, both eyes and all related structures Pupils: Equal, round and reactive pupils present EOM: EOMs intact bilaterally Resp Effort & Inspection: normal respiratory effort Auscultation: clear to auscultation bilaterally Cardio Rate: regular rate Rhythm: regular rhythm Heart sounds: S1 normal heart sound present, S2 normal heart sound present, no gallops, no murmurs and no rubs Neuro General: patient oriented x3 and gait normal Cranial nerves: Yes Equal, round and reactive pupils present Psych Affect: normal affect Coding Level of Care Code Est Pt Level 4 (88861) Diagnoses Diabetes mellitus with neuropathy E11.40 Essential hypertension I10 Cervical radiculopathy M54.12 Immunization counseling Z71.85 Assessment & Plan Assessment & Plan (1) Diabetes mellitus with neuropathy: Code(s): E11.40 - Type 2 diabetes mellitus with diabetic neuropathy, unspecified Category: Medical Plan: A1c?6.5?today.??Goal?is?7% She?notes?that?her?morning?blood?sugars?are?around?90 Given?she?is?84?years?old,?we?do?not?need?to?push?her?so?hard?with?control?of?blood?sugars.??Will?have?her?take?it?glyburide?once?per?day?rather?than?b.i.d. Continue?Trulicity?and?Jardiance?as?prescribed (2) Essential hypertension: Code(s): I10 - Essential (primary) hypertension Category: Medical Plan: Blood?pressure?is?well?controlled.??Goal?is?less?than?140/90 Continue?current?medication (3) Cervical radiculopathy: Code(s): M54.12 - Radiculopathy, cervical region Category: Medical Plan: Stiffness?of?her?neck?and?shoulders?with?radiation?of?discomfort?and?also?some?tingling?sensation?down?her?arms,?right?worse?than?left Check?x-ray?of?cervical?spine Referred?to?physiatry,?[facility]?for?physical?therapy?and?consideration?of?injection?therapy?or?other?treatment?modalities (4) Immunization counseling: Code(s): Z71.85 - Encounter for immunization safety counseling Category: Medical Plan: Recommended?influenza-high?dose,?COVID Recommended?RSV?and?pneumonia?20 Orders: Orders XR cervical spine 2V Today M54.12 - Radiculopathy, cervical region Referrals Physiatry Referral M54.12 - Radiculopathy, cervical region
[2024-08-21 14:59] VITALS: BP 115/56; PULSE 72; RESP 16; TEMP 36.4; O2SAT 98; BMI 23.7
== END 2024-08-21 15:53 | disposition home or self-care (01) ==
PROVIDERS: PCP Family Medicine; Visit Provider Family Medicine
DX: E11.40 Type 2 diabetes mellitus with diabetic neuropathy, unspecified (principal); I10 Essential (primary) hypertension; M54.12 Radiculopathy, cervical region; Z71.85 Encounter for immunization safety counseling

== ENCOUNTER → 2024-08-21 14:35 | Outpatient (BNVA) | payer MEDICARE, OTHER, SELFPAY | PROVIDERS: PCP Family Medicine; Visit Provider Family Medicine | DX: E11.40 Type 2 diabetes mellitus with diabetic neuropathy, unspecified (principal); I10 Essential (primary) hypertension; M54.12 Radiculopathy, cervical region | CPT/HCPCS: 83036; 96127; 99212 ==

== ENCOUNTER 2024-09-22 10:48 | Outpatient (REF) | payer MEDICARE, OTHER, SELFPAY ==
[2024-09-22 13:52] LABS: MANUAL DIFF FLAG NO
[2024-09-22 13:54] LABS: Basophils Percent Auto 0.7 % (0-2); Eosinophils Absolute Auto 0.2 X10*3/uL (0.0-0.4); Eosinophils Percent Auto 3.2 % (0-4); Hematocrit 40.2 % (37.0-47.0); Hemoglobin 12.7 g/dl (12.0-16.0); Imm Gran Abs Auto 0.01 X10*3/uL (0.00-0.03); Imm Gran Pct Auto 0.2 % (0.0-0.4); Lymphocytes Absolute Auto 1.6 X10*3/uL (1.2-4.9); Lymphocytes Percent Auto 27.7 % (20-40); Mean Corpuscular HGB Conc 31.6 g/dl (31.0-35.0); Mean Corpuscular Hemoglobin 29.3 pg (27.0-33.0); Mean Corpuscular Volume 92.8 fL (80.0-98.0); Mean Platelet Volume 9.9 fL (9.4-12.3); Monocytes Absolute Auto 0.5 X10*3/uL (0.1-1.2); Monocytes Percent Auto 8.9 % (2-11); Neutrophils Absolute Auto 3.5 x10*3/uL (2.0-8.3); Neutrophils Percent Auto 59.3 % (45-73); Platelet Count 210 X10*3/uL (160-400); Red Blood Count 4.33 X10*6/uL (4.20-5.50); Red Cell Distribution Width 13.3 % (11.0-16.0); White Blood Count 5.9 X10*3/uL (4.8-10.8)
[2024-09-22 14:08] LABS: Anion Gap 13 (12-20); Blood Urea Nitrogen 35 mg/dL (9-16); Calcium 9.9 mg/dL (8.4-10.2); Carbon Dioxide 30 mmol/L (22-29); Chloride 103 mmol/L (96-108); Estimated Glomerular Filt Rate 39; Glucose Random 71 mg/dL (60-115); Magnesium 1.8 mg/dL (1.6-2.6); Potassium 4.4 mmol/L (3.3-5.1); Sodium 142 mmol/L (135-145)
[2024-09-22 14:23] LABS: Parathyroid Hormone Intact 100.1 pg/mL (8.7-77.1)
== END 2024-09-22 10:49 | disposition home or self-care (01) ==
LOC: HO.WFDLDS 10:48
PROVIDERS: Visit Provider Internal Medicine Hypertension Specialist
DX: N18.30 Chronic kidney disease, stage 3 unspecified (principal)
CPT/HCPCS: 36415; 80048; 83735; 83970; 85025

== ENCOUNTER 2024-09-29 11:03 | Outpatient (AMB) | payer MEDICARE, OTHER, SELFPAY ==
--- NOTE | 2024-09-29 11:06 | HO.NEPHOV ---
Vital Signs 09/29/24 11:07 Height 53 ft Weight 135 lb BMI 0.2 BP 110/52 L Blood Pressure Location Lt brachial Position Sitting Intake Visit Reasons: CKD/ LM Inspector Advanced Composite Required: No Accompanied by: Self / Same As Patient Allergies levofloxacin [From Levaquin] Allergy (Mild, Verified 09/29/24 11:09) hives Medication List - Last Reconciled 09/29/24 by Dilshad Flores MD amitriptyline 50 mg PO BEDTIME 90 days atorvastatin 20 mg PO BEDTIME blood sugar diagnostic (True Metrix Glucose Test Strip) Once a day As directed, to test blood sugar. 90 days dulaglutide (Trulicity) 0.75 mg (0.5 mL) subcut QWEEK 28 days empagliflozin (Jardiance) 20 mg (2 x 10 mg) PO DAILY 90 days gabapentin 300 mg PO BID 90 days glyburide 5 mg PO BID 90 days lisinopril 10 mg PO DAILY 90 days mecobalamin (vitamin B12) mcg PO HPI Comments Details: Kassy is a elderly woman with a history of longstanding diabetes mellitus. She has underlying CKD with the serum creatinine of around 1.3 mg/dL. For the last 2 years, since 2020, serum creatinine has been stable around 1.3 mg/dL. She has had no significant proteinuria. She has been referred for further management of underlying CKD. She monitors blood pressure at home and occasionally blood pressure is on the low side and she feels lightheaded. She is on Jardiance as well. Overall doing OK. 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 Current occupational exposures/hazards: No Cognitive needs: Yes (cane) Hearing needs: No Vision needs: No Physical Exam Vital Signs: Last Vital Signs BP 110/52 L 09/29/24 11:07 BMI result Body Mass Index 0.2 Results Reviewed Nephrology Results: Hgb 12.7 g/dl (12.0-16.0) 09/22/24 WBC 5.9 X10*3/uL (4.8-10.8) 09/22/24 Plt Count 210 X10*3/uL (160-400) 09/22/24 Sodium 142 mmol/L (135-145) 09/22/24 Potassium 4.4 mmol/L (3.3-5.1) 09/22/24 Chloride 103 mmol/L (96-108) 09/22/24 Carbon Dioxide 30 mmol/L (22-29) H 09/22/24 BUN 35 mg/dL (9-16) H 09/22/24 Creatinine 1.29 mg/dL (0.5-1.4) 09/22/24 Calcium 9.9 mg/dL (8.4-10.2) 09/22/24 PTH Intact 100.1 pg/mL (8.7-77.1) H 09/22/24 Urine Protein Negative mg/dL (Neg-Trace) 08/14/24 Urine Creatinine 72.22 mg/dL 08/14/24 Assessment & Plan Assessment & Plan (1) CKD (chronic kidney disease) stage 3, GFR 30-59 ml/min: Code(s): N18.30 - Chronic kidney disease, stage 3 unspecified Category: Medical (2) Essential hypertension: Code(s): I10 - Essential (primary) hypertension Category: Medical (3) Diabetes: Code(s): E11.9 - Type 2 diabetes mellitus without complications Category: Medical Plan Elderly woman with stable CKD 3 in the setting of longstanding diabetes mellitus and hypertension. Serum creatinine is has been stable on 1.3 mg/dL for almost 2 years. She has no significant proteinuria based on the recent urine studies. renal ultrasonogram : No obstruction . Based on the bland urine sediments I do not believe she has active glomerulonephritis or interstitial disease. The blood pressure is acceptable No need for hydrochlorothiazide Continue with lisinopril and encouraged her to keep monitoring blood pressure at home. As for diabetes mellitus recent A1c was under 7%. I have encouraged her to monitor blood sugar and maintain hemoglobin A1c less than 7%. Agree with using is SGLT2 inhibitors h/o Mild hypercalcemia Repeat was 9.9 IPTH was 100 - shall watch Coding Level of Care Code Est Pt Level 4 (26378) Diagnoses CKD (chronic kidney disease) stage 3, GFR 30-59 ml/min N18.30 Essential hypertension I10 Diabetes E11.9
[2024-09-29 11:07] VITALS: BP 110/52
== END 2024-09-29 11:20 | disposition home or self-care (01) ==
PROVIDERS: PCP Family Medicine; Visit Provider Internal Medicine Hypertension Specialist
DX: I12.9 Hypertensive chronic kidney disease with stage 1 through stage 4 chronic kidney disease, or unspecified chronic kidney disease (principal); E11.22 Type 2 diabetes mellitus with diabetic chronic kidney disease; N18.30 Chronic kidney disease, stage 3 unspecified
CPT/HCPCS: 99214

== ENCOUNTER → 2024-09-29 11:03 | Outpatient (BNVA) | payer MEDICARE, OTHER, SELFPAY | PROVIDERS: PCP Family Medicine; Visit Provider Internal Medicine Hypertension Specialist | DX: E11.22 Type 2 diabetes mellitus with diabetic chronic kidney disease (principal); I12.9 Hypertensive chronic kidney disease with stage 1 through stage 4 chronic kidney disease, or unspecified chronic kidney disease; N18.30 Chronic kidney disease, stage 3 unspecified; Z79.84 Long term (current) use of oral hypoglycemic drugs | CPT/HCPCS: 99212 ==

== ENCOUNTER 2024-11-26 14:23 | Outpatient (AMB) | payer MEDICARE, OTHER, SELFPAY ==
--- NOTE | 2024-11-26 14:34 | A.OFFPC_ITS ---
Vital Signs 11/26/24 14:36 Height 5 ft 3 in Weight 137 lb 4 oz BMI 24.3 BP 110/50 L Blood Pressure Location Lt brachial Position Sitting Respiration 14 Pulse 63 Pulse Source Pulse Oximeter Temp 97.9 F Temp Source Oral Pulse Oximetry (%) 98 Oxygen Delivery Method Room Air Intake Visit Reasons: f/u HTN, DM Intake Note: htn and DM follow up Diesel Dinkey Operator Required: No Allergies levofloxacin [From Levaquin] Allergy (Mild, Verified 11/26/24 14:35) hives Tobacco use date assessed: 03/25/24 Dental Screening Dental Screen Date: 01/07/24 HPI f/u HTN, DM HPI Details 84 y/o female presents to f/u HTN, diabe vazquez, chronic conditions. Last A1c 08/21/24 6.5%. She is on Jardiance 20mg, Trulicity 0.75mg, glyburide 5mg b.i.d. A1c today 11/26/24 7.3%. Blood pressure today 110/50, 63p. She is on lisinopril 10mg daily. Has gained about 8lbs since March. HPI Comments History of Present Illness Details Documentation assistance for Scot Bourne MD, was provided by Yan Aguilera,? Hospice Art Therapist on 11/26/2024 at 3:04 PM EST. I, Dr. Bourne, have read, observed, and verified documentation. ?? 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 1. Little interest or pleasure in doing things: not at all 2. Feeling down, depressed, or hopeless: not at all 3. Trouble falling or staying asleep, or sleeping too much: not at all 4. Feeling tired or having little energy: not at all 5. Poor appetite or overeating: not at all 6. Feeling bad about yourself - or that you are a failure or have let yourself or your family down: not at all 7. Trouble concentrating on things, such as reading the newspaper or watching television: not at all 8. Moving or speaking so slowly that other people could have noticed. Or the opposite - being so fidgety or restless that you have been moving around a lot more than usual: not at all 9. Thoughts that you would be better off or of hurting yourself in some way: not at all Total score: 0 Source: Developed by Drs. Rey Manley, Kalyani Mccallum, Jameel Peterson and colleagues, with an educational cm from [employer]. Thrive Questionnaire Date Thrive assessed: 08/21/24 I am a: Patient What is your living situation today?: I have a steady place to live Within the past 12 months, did the food you bought not last and you didn't have the money to get more?: Often true Within the past 12 months, did you worry whether your food would run out before you got money to buy more?: Never true Do you have trouble paying for medicines?: No Do you have trouble getting transportation to medical appointments?: No Do you have trouble paying your heating and electricity bill?: No Do you have trouble taking care of your child, family member or friend?: No Do you have trouble with day-to-day activities such as bathing, preparing meals, shopping, managing finances, etc.?: No Are you currently unemployed and looking for a job?: No Are you interested in more education?: No Please select the resources that you would like help with: None Currently or been in a relationship where the following occur: No concerns reported THRIVE Score: 1 AUDIT C Alcohol Use Questionnaire (AUDIT-C) 1. How often do you have a drink containing alcohol?: Monthly or less 2. How many drinks containing alcohol do you have on a typical day when you are drinking?: 1 or 2 3. How often do you have six or more drinks on one occasion?: Never Total Score: 1 MORA-7 AMB Questionnaire MORA-7 Date MORA - 7 assessed: 03/25/24 Feeling nervous, anxious, or on edge: 0 = Not at all Not being able to stop or control worryin = Not at all Worrying too much about different things: 0 = Not at all Trouble relaxin = Not at all Being so restless that it is hard to sit still: 0 = Not at all Becoming easily annoyed or irritable: 0 = Not at all Feeling afraid as if something awful might happen: 0 = Not at all Total MORA-7 score (0-4 normal; 5-9 mild; 10-14 moderate; 15-21 severe): 0 Source: Developed by Drs. Rey Manley, Kalyani Mccallum, Jameel Peterson and colleagues, with an educational cm from [employer]. Review of Systems Const Denies chills, Denies fatigue, Denies fever(s), Denies headache(s) and Denies weakness ENT Denies dizziness and Denies headache(s) Card Denies dyspnea Resp Denies cough, Denies dyspnea, Denies wheezing and Denies other (shortness of breath) Musc Denies numbness and Denies tingling Neuro Denies dizziness, Denies headache(s), Denies numbness, Denies tingling and Denies weakness Psych Denies anxiety and Denies depression Endo Denies fatigue Aller/Immun Denies wheezing Physical exam (Primary Care) Vital Signs: Last Vital Signs Temp 97.9 F 11/26/24 14:36 Pulse 63 11/26/24 14:36 Resp 14 11/26/24 14:36 BP 110/50 L 11/26/24 14:36 Pulse Ox 98 11/26/24 14:36 Oxygen Delivery Method Room Air 11/26/24 14:36 BMI result Body Mass Index 24.3 Tobacco/Smoking Status: Tobacco use Status Tobacco use date assessed 03/25/24 11/26/24 14:39 Patient Tobacco Use Status Former Tobacco user 11/26/24 14:39 e-Cigarette/Vaping Use Never Used 11/26/24 14:39 PHQ-9: PHQ-9 Score PHQ-9: Total score 0 11/26/24 14:39 Thrive Assessment: Date of Thrive Assessment Date Thrive assessed 08/21/24 11/26/24 14:39 Currently or been in a relationship where the following occur: No concerns reported Const General: well developed; No acute distress Nutritional Appearance: well nourished Orientation/consciousness: patient oriented x3 HENMT Head: Yes normocephalic and Yes atraumatic Eyes General: appearance normal, both eyes and all related structures Pupils: Equal, round and reactive pupils present EOM: EOMs intact bilaterally Resp Effort & Inspection: normal respiratory effort Neuro General: patient oriented x3 and gait normal Cranial nerves: Yes Equal, round and reactive pupils present Psych Affect: normal affect Coding Level of Care Code Est Pt Level 3 (18914) Diagnoses Diabetes E11.9 Essential hypertension I10 Assessment & Plan Assessment & Plan (1) Diabetes: Code(s): E11.9 - Type 2 diabetes mellitus without complications Category: Medical Plan: A1c?climbed?to?7.3%. Goal?is?up?to?7% Will?increase?her?Trulicity Continue?your?other?diabetes?medications?as?prescribed Patient?requests?Natalia?continue?his?glucose?monitor-sent (2) Essential hypertension: Code(s): I10 - Essential (primary) hypertension Category: Medical Plan: Blood?pressure?is?controlled.??Goal?is?less?than?140/90 Continue?current?medication Medications: New blood-glucose sensor (FreeStyle Natalia 3 Sensor device) 2 times a month, As directed, 84 days 6 ea 3RF blood-glucose meter,continuous (FreeStyle Natalia 3 [place]) As directed, 999 days 1 ea 0RF Changed From dulaglutide (Trulicity) 0.75 mg (0.5 mL) subcut QWEEK 28 days 2 mL 3RF E11.40 - Type 2 diabetes mellitus with diabetic neuropathy, unspecified, N18.30 - Chronic kidney disease, stage 3 unspecified To dulaglutide 1.5 mg (0.5 mL) subcut QWEEK 2 mL 3RF 28 days E11.40 - Type 2 diabetes mellitus with diabetic neuropathy, unspecified, N18.30 - Chronic kidney disease, stage 3 unspecified
[2024-11-26 14:36] VITALS: BP 110/50; PULSE 63; RESP 14; TEMP 36.6; O2SAT 98; BMI 24.3
--- OUTSIDE RECORDS SUMMARY | 2024-11-26 15:38 | XMS_ITS | Patient Health Record ---
Author Organization [facility] [employer] [facility] Address [address] [place] [address] Care Team Providers Care Screen Cleaner Name Role Phone Shaun Kiran MD Primary Care Provider Tenzin George Unavailable [phone] Tenzin Edmonds MD Unavailable Unavailable Allergies Allergen (clinical drug ingredient) Drug/Non Drug Allergy documented on EMR Reaction Allergy Type Onset Date Status levaquine (uncoded) hives Allergy Active Reason For Referral No Information Medications Medication SIG (Take, Route, Fr equency, Duration) Notes Start Date End Date Status atorvastatin Active Jardiance Active magnesium Active vit e Active amitriptyline As directed Acti ve gabapentin As directed Active Lisinopril As directed Active glyBURIDE As directed Active Statin As directed Not-Taki ng Preservision As directed Not-T aking Janumet As directed Not-Taki ng aspirin As directed Not-Taki ng Social History Tobacco Use: Social History Observation Description Date Details (start date - stop date) Former Smoker NA - NA Tobacco Use Question Answer Notes The patient is a former smoker Additional Findings: Tobacco Non-User Current no n-smoker The patient is a former smoker Additional Findings: Tobacco Non-User Current no n-smoker Problems Problem Type SNOMED Code ICD Code Onset Dates Problem Status W/U Status Risk Notes Problem [id number] 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) Active confirmed Problem [id number] 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) Active confirmed Problem [id number] Acute lateral meniscus tear of left knee, subsequent encounter (S83.282D) Active confirmed Problem 5807174 Tear of left rot ator cuff, unspecified tear extent (M75.102) Active confirmed Problem [id number] Acromioclavicula r joint arthritis, 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) Active confirmed Plan Of Treatment Pending Test Test Name Order Date Physical Therapy - In Home 11/02/2019 Insurance Providers Payer Name Payer Address Payer Phone Subscriber Number Group Number Insured Name Patient Relationship to Insured Coverage Start Date Coverage End Date Medicare Claims [address] [place] [address] [id number] Kassy Holly Self - patient is the insured For Life [address] [place] [address] [id number] Kassy Holly Self - patient is the insured Medical (General) History Medical History History ICD Code fibromyalgia high blood pressure diabetes arthritis Condtions and Illness: High Blood Pressu re,Diabetes,Arthritis Surgical History Surgery Date(Month/Year) hysterectomy 1989 neck surgery 1991 bladder suspension 1994 right finger trigger 2009 squamous cell cancer right hand 2015
== END 2024-11-26 14:59 | disposition home or self-care (01) ==
PROVIDERS: PCP Family Medicine; Visit Provider Family Medicine
DX: E11.40 Type 2 diabetes mellitus with diabetic neuropathy, unspecified (principal); I10 Essential (primary) hypertension

== ENCOUNTER → 2024-11-26 14:23 | Outpatient (BNVA) | payer MEDICARE, OTHER, SELFPAY | PROVIDERS: PCP Family Medicine; Visit Provider Family Medicine | DX: E11.9 Type 2 diabetes mellitus without complications (principal); I10 Essential (primary) hypertension | CPT/HCPCS: 83036; 99212 ==

== ENCOUNTER 2025-01-14 11:19 | Outpatient (REF) | payer MEDICARE, OTHER, SELFPAY ==
--- OUTSIDE RECORDS SUMMARY | 2025-01-14 13:44 | XMS_ITS | Patient Health Record ---
Author Organization [facility] Address [address] [place] [address] Care Team Providers Care Distribution Technician Name Role Phone Shaun Kiran MD Primary Care Provider Tenzin George Unavailable [phone] Tenzin Edmonds MD Unavailable Unavailable Allergies Allergen [...] Problem Status W/U Status Risk Notes Problem [id number] 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) Active confirmed Problem [id number] 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) Active confirmed Problem 043730514 Acute lateral meniscus tear of left knee, subsequent encounter (S83.282D) Active confirmed Problem 4007246 Tear of left rot ator cuff, unspecified tear extent (M75.102) Active confirmed Problem 719474169 Acromioclavicula r joint arthritis, 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) Active confirmed Plan Of Treatment Pending Test Test Name Order Date Physical Therapy - In Home 11/02/2019 Insurance Providers Payer Name Payer Address Payer Phone Subscriber Number Group Number Insured Name Patient Relationship to Insured Coverage Start Date Coverage End Date Medicare Claims [address] [place] [address] [id number] Kassy Holly Self - patient is the insured For Life [address] [place] [address] [id number] Kassy Holly Self - patient is the insured Medical (General) History Medical History History ICD Code fibromyalgia high blood pressure diabetes arthritis Condtions and Illness: High Blood Pressu re,Diabetes,Arthritis Surgical History Surgery Date(Month/Year) hysterectomy 1989 neck surgery 1991 bladder suspension 1994 right finger trigger 2009 squamous cell cancer right hand 2015
== END 2025-01-14 11:20 | disposition home or self-care (01) ==
LOC: HO.LAB 11:19
PROVIDERS: Visit Provider Family Medicine
DX: Z13.89 Encounter for screening for other disorder (principal)

== ENCOUNTER 2025-01-14 11:22 | Outpatient (REF) | payer MEDICARE, OTHER, SELFPAY ==
[2025-01-14 14:41] LABS: Appearance Urine Turbid; Color Urine Straw; Glucose Urine UA >=1000 mg/dL (Negative); Leukocyte Esterase Urine Small (1+) (Negative); Nitrite Urine Negative (Negative); Specific Gravity - Urine 1.025 (1.005-1.025); UMIC TRIGGER UA YES; Urine Blood Large (3+) (Negative); Urine Ketones Trace mg/dL (Negative); Urine Protein 30 (1+) mg/dL (Neg-Trace)
[2025-01-14 15:01] LABS: Bacteria Urine 3+ (None Seen); Hyaline Casts Urine 0-2 /LPF (0-2); WBC Urine 21-50 /HPF (0-5)
[2025-01-14 15:02] LABS: Transitional Epi Cells Urine Present
== END 2025-01-14 11:23 | disposition home or self-care (01) ==
LOC: HO.WFDLDS 11:22
PROVIDERS: Visit Provider Family Medicine
DX: Z00.00 Encounter for general adult medical examination without abnormal findings (principal)
CPT/HCPCS: 81001

== ENCOUNTER 2025-02-23 15:20 | Outpatient (AMB) | payer MEDICARE, OTHER, SELFPAY ==
--- NOTE | 2025-02-23 15:41 | MHC.PC.OV ---
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 90 days blood-glucose sensor (Sansanyle Natalia 3 Sensor device) 2 times a month, As directed, 84 days blood-glucose,clinical resource nurse,cont (FreeStyle Natalia 3 [place]) As directed, 999 days dulaglutide 1.5 mg (0.5 mL) subcut QWEEK 84 days empagliflozin (Jardiance) 20 mg (2 x 10 mg) PO DAILY 90 days gabapentin 300 mg PO BID 90 days glyburide 5 mg PO BID 90 days lisinopril 10 mg PO DAILY 90 days mecobalamin (vitamin B12) mcg PO nitrofurantoin monohyd/m-cryst 100 mg (Macrobid) 100 mg PO BID 7 days Tobacco use date assessed: 03/25/24 Dental Screening Dental Screen Date: 01/07/24 HPI f/u diabetes, hypertension HPI Details 85 y/o female presents to f/u diabetes, hypertension. Blood pressure today 110/60, 64p. She is on lisinopril 10mg. Prior A1c 11/26/24 7.3%. Had increased her Trulicity and had sent a script for a continuous glucose monitor. She is on dulaglutide 1.5mg, Jardiance 20mg, glyburide 5mg b.i.d. for her diabetes. A1c today 7.0%. She reports ongoing unsteady gait. She has done physical therapy for her lower extremity weakness. She notes cane continues to help her with her balance. 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 Current occupational exposures/hazards: No Cognitive needs: Yes (cane) Hearing needs: No Vision needs: No Questionnaire Thrive Questionnaire Date Thrive assessed: 11/26/24 I am a: Patient What is your living situation today?: I have a steady place to live Within the past 12 months, did the food you bought not last and you didn't have the money to get more?: Often true Within the past 12 months, did you worry whether your food would run out before you got money to buy more?: Never true Do you have trouble paying for medicines?: No Do you have trouble getting transportation to medical appointments?: No Do you have trouble paying your heating and electricity bill?: No Do you have trouble taking care of your child, family member or friend?: No Do you have trouble with day-to-day activities such as bathing, preparing meals, shopping, managing finances, etc.?: No Are you currently unemployed and looking for a job?: No Are you interested in more education?: No Please select the resources that you would like help with: None Currently or been in a relationship where the following occur: No concerns reported THRIVE Score: 1 MORA-7 AMB Questionnaire MORA-7 Date MORA - 7 assessed: 03/25/24 Source: Developed by Drs. Rey Manley, Kalyani Mccallum, Jameel Peterson and colleagues, with an educational mc from [employer]. Review of Systems Const Denies chills, Denies fatigue, Denies fever(s), Denies headache(s) and Denies weakness ENT Denies dizziness and Denies headache(s) Card Denies dyspnea Resp Denies cough, Denies dyspnea, Denies wheezing and Denies other (shortness of breath) Musc Denies numbness and Denies tingling Neuro Denies dizziness, Denies headache(s), Denies numbness, Denies tingling and Denies weakness Psych Denies anxiety and Denies depression Endo Denies fatigue Aller/Immun Denies wheezing Physical exam (Primary Care) Vital Signs: Last Vital Signs Temp 97.2 F 02/23/25 15:50 Pulse 64 02/23/25 15:50 Resp 14 02/23/25 15:50 BP 110/60 02/23/25 15:50 Pulse Ox 96 02/23/25 15:50 Oxygen Delivery Method Room Air 02/23/25 15:50 BMI result Body Mass Index 24.1 Tobacco/Smoking Status: Tobacco use Status Tobacco use date assessed 03/25/24 02/23/25 15:42 Patient Tobacco Use Status Former Tobacco user 02/23/25 15:42 e-Cigarette/Vaping Use Never Used 02/23/25 15:42 Thrive Assessment: Date of Thrive Assessment Date Thrive assessed 11/26/24 02/23/25 15:42 Currently or been in a relationship where the following occur: No concerns reported Const General: well developed; No acute distress Nutritional Appearance: well nourished Orientation/consciousness: patient oriented x3 HENMT Head: Yes normocephalic and Yes atraumatic Eyes General: appearance normal, both eyes and all related structures Pupils: Equal, round and reactive pupils present EOM: EOMs intact bilaterally Resp Effort & Inspection: normal respiratory effort Neuro General: patient oriented x3 and No gait normal Cranial nerves: Yes Equal, round and reactive pupils present Psych Affect: normal affect Coding Level of Care Code Est Pt Level 4 (90314) Diagnoses Essential hypertension I10 Diabetes E11.9 Lower extremity weakness R29.898 Imbalance R26.89 Assessment & Plan Assessment & Plan (1) Essential hypertension: Code(s): I10 - Essential (primary) hypertension Category: Medical Plan: Blood?pressure?is?controlled.??Goal?is?less?than?140/90 Continue?current?medication (2) Diabetes: Code(s): E11.9 - Type 2 diabetes mellitus without complications Category: Medical Plan: A1c?7.0%?today. Controlled.??Goal?is?7% Continue?current?medication Work?at?diabetic?diet?and?exercise?as?tolerated (3) Lower extremity weakness: Code(s): R29.898 - Other symptoms and signs involving the musculoskeletal system Category: Medical Plan: Patient?continues?to?perform?exercises?taught?in?physical?therapy Maintaining?strength?in?doing?fairly?well?with?her?balance Continue?using?cane?and?continue?exercise She?will?let?me?know?if?balance?or?strength?worsens?and?would?refer?back?to?physical?therapy (4) Imbalance: Code(s): R26.89 - Other abnormalities of gait and mobility Category: Medical Plan: As above Orders: Orders Comprehensive Met. Panel Today N18.30 - Chronic kidney disease, stage 3 unspecified Parathyroid Hormone Intact Today N18.30 - Chronic kidney disease, stage 3 unspecified Medications: Refilled gabapentin 300 mg PO BID 90 days 180 caps 4RF atorvastatin 20 mg PO BEDTIME 90 tabs 3RF dulaglutide 1.5 mg (0.5 mL) subcut QWEEK 84 days 6 mL 3RF E11.40 - Type 2 diabetes mellitus with diabetic neuropathy, unspecified, N18.30 - Chronic kidney disease, stage 3 unspecified
[2025-02-23 15:50] VITALS: BP 110/60; PULSE 64; RESP 14; TEMP 36.2; O2SAT 96; BMI 24.1
--- OUTSIDE RECORDS SUMMARY | 2025-02-23 16:24 | XMS_ITS | Patient Health Record ---
Author Organization [facility] Address [address] [place] [address] Care Team Providers Care Food Operations Manager Name Role Phone Shaun Kiran MD Primary Care Provider Tenzin George Unavailable [phone] Tenzin Edmonds MD Unavailable Unavailable Allergies Allergen [...] Problem Status W/U Status Risk Notes Problem [id number] 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) Active confirmed Problem [id number] 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) Active confirmed Problem 912999510 Acute lateral meniscus tear of left knee, subsequent encounter (S83.282D) Active confirmed Problem 5919263 Tear of left rot ator cuff, unspecified tear extent (M75.102) Active confirmed Problem 940712510 Acromioclavicula r joint arthritis, 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) Active confirmed Plan Of Treatment Pending Test Test Name Order Date Physical Therapy - In Home 11/02/2019 Insurance Providers Payer Name Payer Address Payer Phone Subscriber Number Group Number Insured Name Patient Relationship to Insured Coverage Start Date Coverage End Date Medicare Claims [address] [place] [address] [id number] Kassy Holly Self - patient is the insured For Life [address] [place] [address] [id number] Kassy Holly Self - patient is the insured Medical (General) History Medical History History ICD Code fibromyalgia high blood pressure diabetes arthritis Condtions and Illness: High Blood Pressu re,Diabetes,Arthritis Surgical History Surgery Date(Month/Year) hysterectomy 1989 neck surgery 1991 bladder suspension 1994 right finger trigger 2009 squamous cell cancer right hand 2015
== END 2025-02-23 16:08 | disposition home or self-care (01) ==
LOC: HO.HMCFM 15:21
PROVIDERS: PCP Family Medicine; Visit Provider Family Medicine
DX: I10 Essential (primary) hypertension (principal); E11.9 Type 2 diabetes mellitus without complications; R29.898 Other symptoms and signs involving the musculoskeletal system; R26.89 Other abnormalities of gait and mobility

== ENCOUNTER → 2025-02-23 15:20 | Outpatient (BNVA) | payer MEDICARE, OTHER, SELFPAY | PROVIDERS: PCP Family Medicine; Visit Provider Family Medicine | DX: E11.9 Type 2 diabetes mellitus without complications (principal); I10 Essential (primary) hypertension; R26.89 Other abnormalities of gait and mobility; R29.898 Other symptoms and signs involving the musculoskeletal system | CPT/HCPCS: 99212 ==

== ENCOUNTER 2025-03-05 10:56 | Outpatient (REF) | payer MEDICARE, OTHER, SELFPAY ==
--- OUTSIDE RECORDS SUMMARY | 2025-03-05 11:46 | XMS_ITS | Patient Health Record ---
Author Organization [facility] Address [address] [place] [address] Care Team Providers Care Yard Labor Supervisor Name Role Phone Shaun Kiran MD Primary Care Provider Tenzin George Unavailable [phone] Tenzin Edmonds MD Unavailable Unavailable Allergies Allergen [...] Problem Status W/U Status Risk Notes Problem 041556535 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) Active confirmed Problem [id number] 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) Active confirmed Problem 566000740 Acute lateral meniscus tear of left knee, subsequent encounter (S83.282D) Active confirmed Problem 8981735 Tear of left rot ator cuff, unspecified tear extent (M75.102) Active confirmed Problem 155314452 Acromioclavicula r joint arthritis, 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) Active confirmed Plan Of Treatment Pending Test Test Name Order Date Physical Therapy - In Home 11/02/2019 Insurance Providers Payer Name Payer Address Payer Phone Subscriber Number Group Number Insured Name Patient Relationship to Insured Coverage Start Date Coverage End Date Medicare Claims [address] [place] [address] [id number] Kassy Holly Self - patient is the insured For Life [address] [place] [address] [id number] Kassy Holly Self - patient is the insured Medical (General) History Medical History History ICD Code fibromyalgia high blood pressure diabetes arthritis Condtions and Illness: High Blood Pressu re,Diabetes,Arthritis Surgical History Surgery Date(Month/Year) hysterectomy 1989 neck surgery 1991 bladder suspension 1994 right finger trigger 2009 squamous cell cancer right hand 2015
[2025-03-05 15:50] LABS: Parathyroid Hormone Intact 135.3 pg/mL (8.7-77.1)
[2025-03-05 16:12] LABS: Alanine Aminotransferase 21 U/L (0-31); Albumin Level 4.1 g/dL (3.5-5.0); Anion Gap 9 (12-20); Aspartate Amino Transferase 33 U/L (5-31); Bilirubin Total 0.7 mg/dL (0.0-1.0); Blood Urea Nitrogen 29 mg/dL (9-16); Calcium 9.9 mg/dL (8.4-10.2); Carbon Dioxide 32 mmol/L (22-29); Chloride 105 mmol/L (96-108); Estimated Glomerular Filt Rate 42; Glucose Random 69 mg/dL (60-115); Potassium 4.9 mmol/L (3.3-5.1); Sodium 141 mmol/L (135-145); Total Protein 6.7 g/dL (6.5-8.0)
[2025-03-05 17:08] LABS: Alkaline Phosphatase 102 U/L (39-117)
== END 2025-03-05 10:57 | disposition home or self-care (01) ==
LOC: HO.WFDLDS 10:56
PROVIDERS: Visit Provider Family Medicine
DX: R73.01 Impaired fasting glucose (principal); N18.30 Chronic kidney disease, stage 3 unspecified
CPT/HCPCS: 36415; 80053; 83970

== ENCOUNTER 2025-03-11 11:04 | Outpatient (AMB) | payer MEDICARE, OTHER, SELFPAY ==
[2025-03-11 11:10] VITALS: BP 110/44; PULSE 78; O2SAT 94; BMI 24.1
--- NOTE | 2025-03-11 11:10 | HO.NEPHOV ---
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 90 days blood-glucose sensor (The Mobile MajorityStyle Natalia 3 Sensor device) 2 times a month, As directed, 84 days blood-glucose,associate professor of mathematics,cont (FreeStyle Natalia 3 [place]) As directed, 999 days dulaglutide 1.5 mg (0.5 mL) subcut QWEEK 84 days empagliflozin (Jardiance) 20 mg (2 x 10 mg) PO DAILY 90 days gabapentin 300 mg PO BID 90 days glyburide 5 mg PO BID 90 days lisinopril 10 mg PO DAILY 90 days mecobalamin (vitamin B12) mcg PO nitrofurantoin monohyd/m-cryst 100 mg (Macrobid) 100 mg PO BID 7 days HPI Comments Details: Kassy is a elderly woman with a history of longstanding diabetes mellitus. She has underlying CKD with the serum creatinine of around 1.3 mg/dL. For the last 2 years, since 2020, serum creatinine has been stable around 1.3 mg/dL. She has had no significant proteinuria. She has been referred for further management of underlying CKD. She monitors blood pressure at home and occasionally blood pressure is on the low side and she feels lightheaded. She is on Jardiance as well. Overall doing OK. No new issues today 03/11/25 85-year-old female presenting with a six-month follow-up for diabetes mellitus and chronic kidney disease management. She has a stable history of these conditions with no significant events since her last visit in September. Her kidney function, as represented by eGFR, showed improvement from 37% in August, to 39% in September, and most recently 42% in February. Concurrently, her diabetes is managed with medication, resulting in a decrease in hemoglobin A1c from 7.3% to 7.0%. Her therapy includes lisinopril and Jardiance, which she reports as being effective and well-tolerated. She denied any new symptoms such as dyspnea, persistent cough, or lower extremity edema. The current medication regimen continues to support control of these chronic conditions. 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 Current occupational exposures/hazards: No Cognitive needs: Yes (cane) Hearing needs: No Vision needs: No Physical Exam Vital Signs: Last Vital Signs Pulse 78 03/11/25 11:10 BP 110/44 L 03/11/25 11:10 Pulse Ox 94 03/11/25 11:10 Oxygen Delivery Method Room Air 03/11/25 11:10 BMI result Body Mass Index 24.1 Const General: comfortable Nutritional Appearance: well nourished Orientation/consciousness: patient oriented x3 HEENT Head: No normal to inspection Mouth: moist mucous membranes Neck Neck: Yes supple and Yes no JVD Resp Auscultation: clear to auscultation bilaterally, no rales and rub present Cardio Jugular venous distension: no JVD Palpation: no palpable S3 and no palpable S4 Heart sounds: no rubs GI Palpation (GI): Soft to palpation and nontender Percussion: No Fluid wave present General: Yes no CVA tenderness Back/Spine/Pelvis Back: no CVA tenderness Skin General skin exam: no rashes or lesions noted Neuro General: patient oriented x3 Extrem General: Yes no pedal edema and No clubbing Results Reviewed Nephrology Results: Hgb 12.7 g/dl (12.0-16.0) 09/22/24 WBC 5.9 X10*3/uL (4.8-10.8) 09/22/24 Plt Count 210 X10*3/uL (160-400) 09/22/24 Sodium 141 mmol/L (135-145) 03/05/25 Potassium 4.9 mmol/L (3.3-5.1) 03/05/25 Chloride 105 mmol/L (96-108) 03/05/25 Carbon Dioxide 32 mmol/L (22-29) H 03/05/25 BUN 29 mg/dL (9-16) H 03/05/25 Creatinine 1.21 mg/dL (0.5-1.4) 03/05/25 Calcium 9.9 mg/dL (8.4-10.2) 03/05/25 PTH Intact 135.3 pg/mL (8.7-77.1) H 03/05/25 Urine Protein 30 (1+) mg/dL (Neg-Trace) H 01/14/25 Assessment & Plan Assessment & Plan (1) CKD (chronic kidney disease) stage 3, GFR 30-59 ml/min: Code(s): N18.30 - Chronic kidney disease, stage 3 unspecified Category: Medical (2) Essential hypertension: Code(s): I10 - Essential (primary) hypertension Category: Medical (3) Diabetes: Code(s): E11.9 - Type 2 diabetes mellitus without complications Category: Medical Plan Elderly woman with stable CKD 3 in the setting of longstanding diabetes mellitus and hypertension. Serum creatinine is has been stable on 1.3 mg/dL for almost 2 years. She has no significant proteinuria based on the recent urine studies. renal ultrasonogram : No obstruction . Based on the bland urine sediments I do not believe she has active glomerulonephritis or interstitial disease. The blood pressure is acceptable No need for hydrochlorothiazide Continue with lisinopril and encouraged her to keep monitoring blood pressure at home. As for diabetes mellitus recent A1c was under 7%. I have encouraged her to monitor blood sugar and maintain hemoglobin A1c less than 7%. Agree with using is SGLT2 inhibitors h/o Mild hypercalcemia Repeat was 9.9 IPTH was 100 - shall watch Orders: Orders Creatinine Urine 6 Months N18.30 - Chronic kidney disease, stage 3 unspecified Basic Metabolic Panel 6 Months N18.30 - Chronic kidney disease, stage 3 unspecified Total Protein Urine Random 6 Months N18.30 - Chronic kidney disease, stage 3 unspecified Coding Level of Care Code Est Pt Level 4 (27719) Diagnoses CKD (chronic kidney disease) stage 3, GFR 30-59 ml/min N18.30 Essential hypertension I10 Diabetes E11.9
--- OUTSIDE RECORDS SUMMARY | 2025-03-11 13:09 | XMS_ITS | Patient Health Record ---
Author Organization [facility] Address [address] [place] [address] Care Team Providers Care Christian Science Healer Name Role Phone Shaun Kiran MD Primary Care Provider Tenzin George Unavailable [phone] Tenzin Edmonds MD Unavailable Unavailable Allergies Allergen [...] Problem Status W/U Status Risk Notes Problem [id number] 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) Active confirmed Problem 058600290721684 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) Active confirmed Problem 541995018 Acute lateral meniscus tear of left knee, subsequent encounter (S83.282D) Active confirmed Problem 6402839 Tear of left rot ator cuff, unspecified tear extent (M75.102) Active confirmed Problem 754253508 Acromioclavicula r joint arthritis, 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) Active confirmed Plan Of Treatment Pending Test Test Name Order Date Physical Therapy - In Home 11/02/2019 Insurance Providers Payer Name Payer Address Payer Phone Subscriber Number Group Number Insured Name Patient Relationship to Insured Coverage Start Date Coverage End Date Medicare Claims [address] [place] [address] [id number] Kassy Holly Self - patient is the insured For Life [address] [place] [address] [id number] Kassy Holly Self - patient is the insured Medical (General) History Medical History History ICD Code fibromyalgia high blood pressure diabetes arthritis Condtions and Illness: High Blood Pressu re,Diabetes,Arthritis Surgical History Surgery Date(Month/Year) hysterectomy 1989 neck surgery 1991 bladder suspension 1994 right finger trigger 2009 squamous cell cancer right hand 2015
== END 2025-03-11 11:25 | disposition home or self-care (01) ==
LOC: HO.HKA 11:05
PROVIDERS: PCP Family Medicine; Visit Provider Internal Medicine Hypertension Specialist
DX: N18.30 Chronic kidney disease, stage 3 unspecified (principal); I10 Essential (primary) hypertension; E11.9 Type 2 diabetes mellitus without complications
CPT/HCPCS: 99214

== ENCOUNTER → 2025-03-11 11:04 | Outpatient (BNVA) | payer MEDICARE, OTHER, SELFPAY | PROVIDERS: PCP Family Medicine; Visit Provider Internal Medicine Hypertension Specialist | DX: E11.22 Type 2 diabetes mellitus with diabetic chronic kidney disease (principal); I12.9 Hypertensive chronic kidney disease with stage 1 through stage 4 chronic kidney disease, or unspecified chronic kidney disease; N18.30 Chronic kidney disease, stage 3 unspecified | CPT/HCPCS: 99212 ==

== ENCOUNTER 2025-04-19 14:57 | Outpatient (AMB) | payer MEDICARE, OTHER, SELFPAY ==
[2025-04-19 14:59] VITALS: BP 116/50; PULSE 75; TEMP 36.6; O2SAT 95; BMI 24.5
--- NOTE | 2025-04-19 14:59 | AM.OFFWIN_ITS ---
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 - The patient has a history of a menisca l tear in the right knee from 10 years ago, which required a lengthy recovery and use of a knee brace. - Two weeks ago, she began experiencing similar discomfort and pain in the right knee without any new injury. - The pain worsens with standing and twi sting, with tenderness behind the knee. - She has been using a knee brace and av oiding stairs due to increased discomfort. - Using a cane for support - The patient has chronic kidney disease , limiting her ability to use NSAIDs for pain management. Physical Exam General: Cooperative, healthy appearing, comfortable, no acute distress and well developed Orientation: Patient oriented x3 Limitations: ambulating with a cane Head: Normal to inspection Ears: Hearing grossly normal bilaterally Nose: Normal External nose present Face and sinus: Normal facial exam Mouth: normal, moist oral mucosa Eyes: Appearance normal, both eyes and all related structures Neck: Normal visual inspection and Yes full ROM Respiratory: Normal respiratory effort and able to speak in complete sentences. Skin: no rashes or lesions noted Neuro: Patient oriented x3 Extremities: moving all extremities normally. Right knee: no tenderness, no patellar ballottement, no joint laxity, no skin changes or ecchymosis noted no edema, full ROM, tenderness to palpation in the posterior knee. 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 Current occupational exposures/hazards: No Cognitive needs: Yes (cane) Hearing needs: No Vision needs: No Review of Systems Const All systems reviewed & are unremarkable except as noted in HPI and below Physical Exam Vital Signs: Last Vital Signs Temp 97.9 F 04/19/25 14:59 Pulse 75 04/19/25 14:59 BP 116/50 L 04/19/25 14:59 Pulse Ox 95 04/19/25 14:59 Oxygen Delivery Method Room Air 04/19/25 14:59 BMI result Body Mass Index 24.5 Assessment & Plan Assessment & Plan (1) Posterior right knee pain: Code(s): M25.561 - Pain in right knee Plan: Patient was informed and verbally consented to the use of an ambient scribe for clinic note documentation during this visit Rushing's Cyst - Suspected Rushing's cyst due to tenderness in the posterior knee area. - Recommended conservative management with ice and rest due to inability to use NSAIDs. - Plan includes obtaining an x-ray to assess the current condition of the knee and rule out other issues. - Referral to orthopedics for potential further imaging or intervention if symptoms do not improve. Orders: Orders XR knee RT 4V Today M25.561 - Pain in right knee Referrals Orthopedics Referral M25.561 - Pain in right knee Coding Level of Care Code Est Pt Level 4 (74252) Diagnoses Posterior right knee pain M25.561
--- OUTSIDE RECORDS SUMMARY | 2025-04-19 16:13 | XMS_ITS | Patient Health Record ---
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) Active confirmed Problem 464712574 Acute lateral meniscus tear of left knee, subsequent encounter (S83.282D) Active confirmed Problem 6235757 Tear of left rot ator cuff, unspecified tear extent (M75.102) Active confirmed Problem 046261359 Acromioclavicula r joint arthritis, 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) Active confirmed Plan Of Treatment Pending Test Test Name Order Date Physical Therapy - In Home 11/02/2019 Insurance Providers Payer Name Payer Address Payer Phone Subscriber Number Group Number Insured Name Patient Relationship to Insured Coverage Start Date Coverage End Date Medicare Claims [address] [place] [address] [id number] Kassy Holly Self - patient is the insured For Life [address] [place] [address] [id number] Kassy Holly Self - patient is the insured Medical (General) History Medical History History ICD Code fibromyalgia high blood pressure diabetes arthritis Condtions and Illness: High Blood Pressu re,Diabetes,Arthritis Surgical History Surgery Date(Month/Year) hysterectomy 1989 neck surgery 1991 bladder suspension 1994 right finger trigger 2009 squamous cell cancer right hand 2015
== END 2025-04-19 15:46 | disposition home or self-care (01) ==
PROVIDERS: PCP Family Medicine; Visit Provider Physician Assistant
DX: M25.561 Pain in right knee (principal)

== ENCOUNTER 2025-04-19 15:43 | Outpatient (REF) | payer MEDICARE, OTHER, SELFPAY ==
--- NOTE | ~2025-04-19 | XR_ITS ---
EXAMINATION: XR KNEE, RIGHT CLINICAL INFORMATION: M25.561 - Pain in right knee COMPARISON: None available. TECHNIQUE: Four views of the right knee. FINDINGS: Joint spaces are preserved. There is a small amount of stones are pouch joint fluid. There is minimal marginal osteophyte formation. There is multifocal vascular calcification. XR/XR knee RT 4V IMPRESSION: Joint effusion. Subtle osteoarthritis. Electronically signed by: Chetan Coelho MD 04/19/2025 04:02 PM EDT
== END 2025-04-19 15:44 | disposition home or self-care (01) ==
LOC: HO.HMGCLDS 15:43
PROVIDERS: PCP Family Medicine; Visit Provider Physician Assistant
DX: M25.561 Pain in right knee (principal)
CPT/HCPCS: 73564; 99212

== ENCOUNTER → 2025-04-19 15:48 | Outpatient (BNV) | payer MEDICARE, OTHER, SELFPAY | PROVIDERS: PCP Family Medicine; Visit Provider Radiology Diagnostic Radiology | DX: M25.461 Effusion, right knee (principal); M17.11 Unilateral primary osteoarthritis, right knee | CPT/HCPCS: 73564 ==

== ENCOUNTER → 2025-06-01 15:47 | Outpatient (AMB) | payer MEDICARE, OTHER, SELFPAY ==
--- NOTE | 2025-06-01 16:09 | A.OFFPC_ITS ---
Vital Signs 06/01/25 16:13 Height 5 ft 3 in Weight 139 lb 8 oz BMI 24.7 BP 131/60 Blood Pressure Location Lt brachial Position Sitting Respiration 13 Pulse 75 Pulse Source Pulse Oximeter Temp 97.7 F Temp Source Temporal Artery Scan Pulse Oximetry (%) 96 Oxygen Delivery Method Room Air Intake Visit Reasons: f/u diabetes, HTN Intake Note: Follow up on DM and htn. Patient needs refill on meds. 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 90 days blood-glucose sensor (Matternetyle Natalia 3 Sensor device) 2 times a month, As directed, 84 days blood-glucose,harnessmaker,cont (FreeStyle Natalia 3 [place]) As directed, 999 days dulaglutide 1.5 mg (0.5 mL) subcut QWEEK 84 days empagliflozin (Jardiance) 20 mg (2 x 10 mg) PO DAILY 90 days gabapentin 300 mg PO BID 90 days glyburide 5 mg PO BID 90 days lisinopril 10 mg PO DAILY 90 days mecobalamin (vitamin B12) mcg PO Tobacco use date assessed: 06/01/25 Fall risk assessment: No Falls in past year Last assessed Fall Risk: 06/01/25 Dental Screening Dental Screen Date: 06/01/25 Did you have a dental visit in the last 12 months?: Yes Did you have a dental problem in the last 6 months where you did not have access to dental care?: No Was dental information given to patient?: Patient has dentist HPI f/u diabetes, HTN HPI Details 85 y/o female presents to f/u diabetes, HTN. BP today 131/60, 75p. She is on lisinopril 10mg daily. A1c today improved to 6.8%. She is on Jardiance 20mg, glyburide 5mg b.i.d. 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 Current occupational exposures/hazards: No Cognitive needs: Yes (cane) Hearing needs: No Vision needs: No Questionnaire Thrive Questionnaire Date Thrive assessed: 11/26/24 I am a: Patient What is your living situation today?: I have a steady place to live Within the past 12 months, did the food you bought not last and you didn't have the money to get more?: Often true Within the past 12 months, did you worry whether your food would run out before you got money to buy more?: Never true Do you have trouble paying for medicines?: No Do you have trouble getting transportation to medical appointments?: No Do you have trouble paying your heating and electricity bill?: No Do you have trouble taking care of your child, family member or friend?: No Do you have trouble with day-to-day activities such as bathing, preparing meals, shopping, managing finances, etc.?: No Are you currently unemployed and looking for a job?: No Are you interested in more education?: No Please select the resources that you would like help with: None Currently or been in a relationship where the following occur: No concerns reported THRIVE Score: 1 MORA-7 AMB Questionnaire MORA-7 Date MORA - 7 assessed: 03/25/24 Source: Developed by Drs. Rey Manley, Kalyani Mccallum, Jameel Peterson and colleagues, with an educational cm from [employer]. Review of Systems Const Denies chills, Denies fatigue, Denies fever(s), Denies headache(s) and Denies weakness ENT Denies dizziness and Denies headache(s) Card Denies dyspnea Resp Denies cough, Denies dyspnea, Denies wheezing and Denies other (shortness of breath) Musc Denies numbness and Denies tingling Neuro Denies dizziness, Denies headache(s), Denies numbness, Denies tingling and Denies weakness Psych Denies anxiety and Denies depression Endo Denies fatigue Aller/Immun Denies wheezing Physical exam (Primary Care) Vital Signs: Last Vital Signs Temp 97.7 F 06/01/25 16:13 Pulse 75 06/01/25 16:13 Resp 13 06/01/25 16:13 BP 131/60 06/01/25 16:13 Pulse Ox 96 06/01/25 16:13 Oxygen Delivery Method Room Air 06/01/25 16:13 BMI result Body Mass Index 24.7 Tobacco/Smoking Status: Tobacco use Status Tobacco use date assessed 06/01/25 06/01/25 16:11 Patient Tobacco Use Status Former Tobacco user 06/01/25 16:11 e-Cigarette/Vaping Use Never Used 06/01/25 16:11 Thrive Assessment: Date of Thrive Assessment Date Thrive assessed 11/26/24 06/01/25 16:11 Currently or been in a relationship where the following occur: No concerns reported Const General: well developed; No acute distress Nutritional Appearance: well nourished Orientation/consciousness: patient oriented x3 HENMT Head: Yes normocephalic and Yes atraumatic Eyes General: appearance normal, both eyes and all related structures Pupils: Equal, round and reactive pupils present EOM: EOMs intact bilaterally Resp Effort & Inspection: normal respiratory effort Auscultation: clear to auscultation bilaterally Cardio Rate: regular rate Rhythm: regular rhythm Heart sounds: S1 normal heart sound present, S2 normal heart sound present, no gallops, no murmurs and no rubs Neuro General: patient oriented x3 and gait normal Cranial nerves: Yes Equal, round and reactive pupils present Psych Affect: normal affect Results AMB Hemoglobin A1c AMB Hemoglobin A1c 6.8 % Last Edit by Ángel Blue MA on 06/01/25 16:27 Results Reviewed Results Reviewed: Laboratory Last Values Hgb A1c (Clinic) 6.8 % (4.0-6.0) H 06/01/25 16:20 Coding Level of Care Code Est Pt Level 4 (39201) Diagnoses Diabetes E11.9 Essential hypertension I10 Diabetes mellitus with neuropathy E11.40 Knee pain M25.569 Assessment & Plan Assessment & Plan (1) Diabetes: Code(s): E11.9 - Type 2 diabetes mellitus without complications Category: Medical Plan: A1c 6.8%. Good control. Goal is less than 7.0% Continue current medications (2) Essential hypertension: Code(s): I10 - Essential (primary) hypertension Category: Medical Plan: Blood pressure is controlled. Goal is less than 140/90 Continue her medications (3) Diabetes mellitus with neuropathy: Code(s): E11.40 - Type 2 diabetes mellitus with diabetic neuropathy, unspecified Category: Medical (4) Knee pain: Code(s): M25.569 - Pain in unspecified knee Category: Medical Plan: Right knee pain which is worse when she turns it No posterior knee pain any longer. Likely mild meniscal injury as she has had in the past. This appears to be improving on its own X-ray does show osteoarthritis as well She declines the referral to Ortho at this time. Advised ice and heat She can use Tylenol for pain Plan Stable chronic kidney disease. She is on SGLT2 medications; Jardiance Follow-up with nephrology as recommended Orders: Orders Complete Blood Count Auto Diff Today Z00.00 - Encounter for general adult medical examination without abnormal findings Microalbumin, Random (w Creat) Today I10 - Essential (primary) hypertension AMB Hemoglobin A1c Today E11.40 - Type 2 diabetes mellitus with diabetic neuropathy, unspecified, E11.9 - Type 2 diabetes mellitus without complications Comprehensive [place]. Panel Fast Today Z00.00 - Encounter for general adult medical examination without abnormal findings Lipid Panel Today Z00.00 - Encounter for general adult medical examination without abnormal findings UA CC w/rflx Micro + Cult Today Z00.00 - Encounter for general adult medical examination without abnormal findings TSH reflex Free T4 Today Z00.00 - Encounter for general adult medical examination without abnormal findings Vitamin B12 and Folate Today E53.8 - Deficiency of other specified B group vitamins Vitamin D 25-OH Total Today E55.9 - Vitamin D deficiency, unspecified Medications: Refilled lisinopril 10 mg PO DAILY 90 tabs 3RF 90 days empagliflozin (Jardiance) 20 mg (2 x 10 mg) PO DAILY 180 tabs 3RF 90 days amitriptyline 50 mg PO BEDTIME 90 tabs 2RF 90 days
[2025-06-01 16:13] VITALS: BP 131/60; PULSE 75; RESP 13; TEMP 36.5; O2SAT 96; BMI 24.7
--- OUTSIDE RECORDS SUMMARY | 2025-06-01 16:36 | XMS_ITS | Patient Health Record ---
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) Active confirmed Problem 158236036 Acute lateral meniscus tear of left knee, subsequent encounter (S83.282D) Active confirmed Problem 3962743 Tear of left rot ator cuff, unspecified tear extent (M75.102) Active confirmed Problem 860105388 Acromioclavicula r joint arthritis, 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) Active confirmed Plan Of Treatment Pending Test Test Name Order Date Physical Therapy - In Home 11/02/2019 Insurance Providers Payer Name Payer Address Payer Phone Subscriber Number Group Number Insured Name Patient Relationship to Insured Coverage Start Date Coverage End Date Medicare Claims [address] [place] [address] [id number] Kassy Holly Self - patient is the insured For Life [address] [place] [address] [id number] Kassy Holly Self - patient is the insured Medical (General) History Medical History History ICD Code fibromyalgia high blood pressure diabetes arthritis Condtions and Illness: High Blood Pressu re,Diabetes,Arthritis Surgical History Surgery Date(Month/Year) hysterectomy 1989 neck surgery 1991 bladder suspension 1994 right finger trigger 2009 squamous cell cancer right hand 2015
== END ==
LOC: HO.HMCFM 15:47
PROVIDERS: PCP Family Medicine; Visit Provider Family Medicine
DX: E11.40 Type 2 diabetes mellitus with diabetic neuropathy, unspecified (principal); I10 Essential (primary) hypertension; M25.569 Pain in unspecified knee

== ENCOUNTER → 2025-06-01 15:47 | Outpatient (BNVA) | payer MEDICARE, OTHER, SELFPAY | PROVIDERS: PCP Family Medicine; Visit Provider Family Medicine | DX: E11.40 Type 2 diabetes mellitus with diabetic neuropathy, unspecified (principal); I10 Essential (primary) hypertension; M25.561 Pain in right knee | CPT/HCPCS: 83036; 99212 ==

== ENCOUNTER 2025-07-06 11:04 | Outpatient (REF) | payer MEDICARE, OTHER, SELFPAY ==
--- OUTSIDE RECORDS SUMMARY | 2025-07-06 12:33 | XMS_ITS | Patient Health Record ---
Author Organization [facility] Address [address] [place] [address] Care Team Providers Care Mental Health Program Specialist Name Role Phone Shaun Kiran MD Primary Care Provider Tenzin George Unavailable [phone] Tenzin Edmonds MD Unavailable Unavailable Allergies Allergen [...] Problem Status W/U Status Risk Notes Problem 976570432 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) Active confirmed Problem 066814808017052 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) Active confirmed Problem 386515436 Acute lateral meniscus tear of left knee, subsequent encounter (S83.282D) Active confirmed Problem 7626100 Tear of left rot ator cuff, unspecified tear extent (M75.102) Active confirmed Problem 218386295 Acromioclavicula r joint arthritis, 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) Active confirmed Plan Of Treatment Pending Test Test Name Order Date Physical Therapy - In Home 11/02/2019 Insurance Providers Payer Name Payer Address Payer Phone Subscriber Number Group Number Insured Name Patient Relationship to Insured Coverage Start Date Coverage End Date Medicare Claims [address] [place] [address] [id number] Kassy Holly Self - patient is the insured For Life [address] [place] [address] [id number] Kassy Holly Self - patient is the insured Medical (General) History Medical History History ICD Code fibromyalgia high blood pressure diabetes arthritis Condtions and Illness: High Blood Pressu re,Diabetes,Arthritis Surgical History Surgery Date(Month/Year) hysterectomy 1989 neck surgery 1991 bladder suspension 1994 right finger trigger 2009 squamous cell cancer right hand 2015
[2025-07-06 14:23] LABS: Appearance Urine Clear; Glucose Urine UA >=1000 mg/dL (Negative); PH 5.0 (5.0-9.0); Specific Gravity - Urine 1.025 (1.005-1.025); UMIC TRIGGER UACC YES
[2025-07-06 14:24] LABS: MANUAL DIFF FLAG NO
[2025-07-06 14:29] LABS: Hematocrit 43.2 % (37.0-47.0); Hemoglobin 13.6 g/dl (12.0-16.0); Imm Gran Abs Auto 0.04 X10*3/uL (0.00-0.03); Imm Gran Pct Auto 0.6 % (0.0-0.4); Lymphocytes Absolute Auto 1.5 X10*3/uL (1.2-4.9); Mean Corpuscular HGB Conc 31.5 g/dl (31.0-35.0); Mean Corpuscular Hemoglobin 29.3 pg (27.0-33.0); Mean Corpuscular Volume 93.1 fL (80.0-98.0); NRBC Abs Auto 0.000 X10*3/uL (0.0-0.012); NRBC Pct Auto 0.0 /100WBC (0.0-0.2); Platelet Count 202 X10*3/uL (160-400); Red Blood Count 4.64 X10*6/uL (4.20-5.50); White Blood Count 6.6 X10*3/uL (4.8-10.8)
[2025-07-06 14:29] LABS: UACC Culture Trigger YES
[2025-07-06 15:05] LABS: Microalbum/Creatinine Ratio Ur 6.3 ug/mg cr (<30)
[2025-07-06 16:05] LABS: Folate 13.5 ng/mL (> or = 4.0); Vitamin B12 1118 pg/mL (200-900)
[2025-07-06 16:32] LABS: Alanine Aminotransferase 19 U/L (0-31); Albumin Level 4.2 g/dL (3.5-5.0); Alkaline Phosphatase 127 U/L (39-117); Anion Gap 13 (12-20); Aspartate Amino Transferase 30 U/L (5-31); Blood Urea Nitrogen 27 mg/dL (9-16); Calcium 9.8 mg/dL (8.4-10.2); Carbon Dioxide 30 mmol/L (22-29); Chloride 106 mmol/L (96-108); Cholesterol 151 mg/dL (<200); Estimated Glomerular Filt Rate 40; HDL Cholesterol 43 mg/dL (>40); Potassium 4.8 mmol/L (3.3-5.1); Sodium 144 mmol/L (135-145); Total Protein 6.8 g/dL (6.5-8.0); Triglycerides 176 mg/dL (<150)
== END 2025-07-06 11:05 | disposition home or self-care (01) ==
LOC: HO.WFDLDS 11:04
PROVIDERS: Visit Provider Family Medicine
DX: Z00.00 Encounter for general adult medical examination without abnormal findings (principal); I10 Essential (primary) hypertension; E53.8 Deficiency of other specified B group vitamins; E55.9 Vitamin D deficiency, unspecified
CPT/HCPCS: 36415; 80053; 80061; 81001; 82043; 82306; 82570; 82607; 82746; 84443; 85025; 87086

== ENCOUNTER 2025-07-13 14:52 | Outpatient (AMB) | payer MEDICARE, OTHER, SELFPAY ==
--- NOTE | 2025-07-13 14:55 | MHC.PC.OV ---
Vital Signs 07/13/25 15:04 Height 5 ft 3 in Weight 135 lb 8 oz BMI 24.0 BP 116/62 Blood Pressure Location Rt brachial Position Sitting Respiration 14 Pulse 69 Pulse Source Pulse Oximeter Temp 97.3 F Temp Source Temporal Artery Scan Pulse Oximetry (%) 94 Oxygen Delivery Method Room Air Intake Visit Reasons: Extended Exam Medicare Pt Intake Note: Kassy presents in the office today for an extended exam. Allergies levofloxacin (From Levaquin) Allergy (Mild, Verified 07/13/25 15:03) hives Medication List - Last Reconciled 07/13/25 by Scot Bourne MD amitriptyline 50 mg PO BEDTIME 90 days atorvastatin 20 mg PO BEDTIME blood sugar diagnostic (True Metrix Glucose Test Strip) Once a day As directed, to test blood sugar. 90 days blood-glucose sensor ([facility] Natal[facility] 3 Sensor device) 2 times a month, As directed, 84 days blood-glucose,web coordinator,cont (FreeStyle Natalia 3 Nelson) As directed, 999 days dulaglutide 1.5 mg (0.5 mL) subcut QWEEK 84 days empagliflozin (Jardiance) 20 mg (2 x 10 mg) PO DAILY 90 days gabapentin 300 mg PO BID 90 days glyburide 5 mg PO BID 90 days lisinopril 10 mg PO DAILY 90 days mecobalamin (vitamin B12) mcg PO Tobacco use date assessed: 07/13/25 Fall risk assessment: No Falls in past year Last assessed Fall Risk: 07/13/25 Dental Screening Dental Screen Date: 07/13/25 Did you have a dental visit in the last 12 months?: Yes Did you have a dental problem in the last 6 months where you did not have access to dental care?: No Was dental information given to patient?: Patient has dentist HPI Extended Exam Medicare Pt HPI Details 85 y/o female presents for an extended exam with f/u labs and health maint. Labs drawn 07/06/25. Reviewed labs with pt. Last A1c in May 6.8%. Liver enzymes are fine. Triglycerides 176. TC 151. LDL 73. HDL 43. She is on artovastatin 20mg. Vitamin D 39.2. 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 Current occupational exposures/hazards: No Cognitive needs: Yes (cane) Hearing needs: No Vision needs: No Questionnaire Thrive Questionnaire Date Thrive assessed: 11/26/24 I am a: Patient What is your living situation today?: I have a steady place to live Within the past 12 months, did the food you bought not last and you didn't have the money to get more?: Often true Within the past 12 months, did you worry whether your food would run out before you got money to buy more?: Never true Do you have trouble paying for medicines?: No Do you have trouble getting transportation to medical appointments?: No Do you have trouble paying your heating and electricity bill?: No Do you have trouble taking care of your child, family member or friend?: No Do you have trouble with day-to-day activities such as bathing, preparing meals, shopping, managing finances, etc.?: No Are you currently unemployed and looking for a job?: No Are you interested in more education?: No Please select the resources that you would like help with: None Currently or been in a relationship where the following occur: No concerns reported THRIVE Score: 1 MORA-7 AMB Questionnaire MORA-7 Date MORA - 7 assessed: 03/25/24 Source: Developed by Drs. Rey Manley, aKlyani Mccallum, Jameel Peterson and colleagues, with an educational cm from [employer]. Review of Systems Const Denies chills, Denies fatigue, Denies fever(s), Denies headache(s) and Denies weakness Eyes Denies change in vision ENT Denies dizziness, Denies headache(s), Denies hearing loss, Denies nasal congestion, Denies sinus pain, Denies sinus pressure and Denies sore throat Card Denies chest pain, Denies lightheadedness, Denies dyspnea and Denies other (palpitations) Resp Denies cough, Denies dyspnea and Denies wheezing GI Denies abdominal pain, Denies melena, Denies hematochezia, Denies change in bowel habits, Denies dyspepsia and Denies nausea Denies hematuria and Denies dysuria Musc Denies abnormal gait, Denies myalgias, Denies arthralgias, Denies numbness and Denies tingling Skin/Breast Denies rash, Denies unusual bruising and Denies wounds Neuro Denies abnormal gait, Denies dizziness, Denies headache(s), Denies memory loss, Denies numbness, Denies Sensory deficit (Neuro), Denies tingling and Denies weakness Psych Denies anxiety, Denies depression and Denies memory loss Endo Denies cold intolerance, Denies fatigue, Denies heat intolerance, Denies polydipsia and Denies polyuria Simon/Lymph Denies easy bleeding and Denies easy bruising Aller/Immun Denies wheezing Physical exam (Primary Care) Vital Signs: Last Vital Signs Temp 97.3 F 07/13/25 15:04 Pulse 69 07/13/25 15:04 Resp 14 07/13/25 15:04 BP 116/62 07/13/25 15:04 Pulse Ox 94 07/13/25 15:04 Oxygen Delivery Method Room Air 07/13/25 15:04 BMI result Body Mass Index 24.0 Tobacco/Smoking Status: Tobacco use Status Tobacco use date assessed 07/13/25 07/13/25 14:58 Patient Tobacco Use Status Former Tobacco user 07/13/25 15:04 e-Cigarette/Vaping Use Never Used 07/13/25 15:04 Thrive Assessment: Date of Thrive Assessment Date Thrive assessed 11/26/24 07/13/25 14:58 Currently or been in a relationship where the following occur: No concerns reported Const General: no acute distress, well developed, alert and awake Nutritional Appearance: well nourished Orientation/consciousness: patient oriented x3 HENMT Head: Yes normocephalic and Yes atraumatic Ears: hearing grossly normal bilaterally and TM's normal bilaterally General nose exam: Normal external nose present and Normal nares present Mouth: Normal oral and palatal mucosa present and moist mucous membranes Teeth and gingiva: dentition normal Throat: Yes posterior oropharynx normal Eyes General: appearance normal, both eyes and all related structures Pupils: Equal, round and reactive pupils present and Pupil accommodation reflex normal EOM: EOMs intact bilaterally Neck Neck: Yes normal visual inspection, Yes no lymphadenopathy and Yes trachea midline Thyroid: Thyroid normal Carotids: no bruits Lymphatic: no lymphadenopathy noted Chest Chest palpation & inspection: normal inspection of the chest Resp Effort & Inspection: normal respiratory effort Auscultation: clear to auscultation bilaterally Cardio Rate: regular rate Rhythm: regular rhythm Heart sounds: S1 normal heart sound present, S2 normal heart sound present, no gallops, no murmurs and no rubs Bruits: no abdominal aortic bruits and no carotid bruits GI Palpation (GI): No Abdominal aortic bruit present, Soft to palpation, nontender, No hepatosplenomegaly present and No Rebound tenderness present Auscultation: normal bowel sounds General: Yes no CVA tenderness Back/Spine/Pelvis Back: no CVA tenderness Cervical Spine: cervical ROM normal and No Cervical spine tenderness Thoracic/Lumbar Spine: thoraco-lumbar ROM normal, No pain with thoraco-lumbar ROM, No thoracic spinal tenderness and No lumbar spinal tenderness Skin Lesions: no lesions Rashes: no rashes Trauma: no lacerations or abrasions Wounds: no wounds Nails: normal Neuro General: patient oriented x3 Cranial nerves: Yes Equal, round and reactive pupils present Cognition (Neuro): normal cognition Gait exam (Neuro): Normal gait present Motor exam (neuro): 5/5 motor strength present throughout Sensory Exam: No Sensory deficit (Neuro) Deep tendon reflexes (DTR's): Right patellar reflex intensity grade: 2+ and Left patellar reflex intensity grade: 2+ Extrem General: Yes normal to inspection and No edema Psych Appearance: grossly normal Affect: normal affect Attitude: cooperative Thought process: Normal thought process present Coding Level of Care Code Est Pt Level 4 (53540) Diagnoses Essential hypertension I10 Diabetes E11.9 Imbalance R26.89 Lower extremity weakness R29.898 Screening for osteoporosis Z13.820 Adult general medical exam Z00.00 Assessment & Plan Assessment & Plan (1) Essential hypertension: Code(s): I10 - Essential (primary) hypertension Category: Medical Plan: Blood pressure is well controlled. Goal is less than 140/90 Continue current medication (2) Diabetes: Code(s): E11.9 - Type 2 diabetes mellitus without complications Category: Medical Plan: A1c at last check was 6.8%. Good control. Goal is less than 7% Continue current medications (3) Imbalance: Code(s): R26.89 - Other abnormalities of gait and mobility Category: Medical Plan: Get up and go test was 15 seconds She did have some unsteadiness during walking She has no decreased sensation in her feet which she says has not changed or worsened Mild fall risk She has had physical therapy in the past. Has a small ergometer cycle for her feet and I encouraged her to keep using this to keep her lower extremities strong. Walks well with her cane Continue using cane (4) Lower extremity weakness: Code(s): R29.898 - Other symptoms and signs involving the musculoskeletal system Category: Medical Plan: As above (5) Screening for osteoporosis: Code(s): Z13.820 - Encounter for screening for osteoporosis Category: Medical Plan: Last bone density was about 5 years ago, per patient Check bone density (6) Adult general medical exam: Code(s): Z00.00 - Encounter for general adult medical examination without abnormal findings Category: Medical Plan: 85-year-old female presents for extended exam Stable Orders: Orders XR DEXA axial skeleton Today M81.0 - Age-related osteoporosis without current pathological fracture
[2025-07-13 15:04] VITALS: BP 116/62; PULSE 69; RESP 14; TEMP 36.3; O2SAT 94; BMI 24.0
--- OUTSIDE RECORDS SUMMARY | 2025-07-13 18:12 | XMS_ITS | Patient Health Record ---
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) Active confirmed Problem 126138581 Acute lateral meniscus tear of left knee, subsequent encounter (S83.282D) Active confirmed Problem 7881511 Tear of left rot ator cuff, unspecified tear extent (M75.102) Active confirmed Problem 316007182 Acromioclavicula r joint arthritis, 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) Active confirmed Plan Of Treatment Pending Test Test Name Order Date Physical Therapy - In Home 11/02/2019 Insurance Providers Payer Name Payer Address Payer Phone Subscriber Number Group Number Insured Name Patient Relationship to Insured Coverage Start Date Coverage End Date Medicare Claims [address] [place] [address] [id number] Kassy Holly Self - patient is the insured For Life [address] [place] [address] [id number] Kassy Holly Self - patient is the insured Medical (General) History Medical History History ICD Code fibromyalgia high blood pressure diabetes arthritis Condtions and Illness: High Blood Pressu re,Diabetes,Arthritis Surgical History Surgery Date(Month/Year) hysterectomy 1989 neck surgery 1991 bladder suspension 1994 right finger trigger 2009 squamous cell cancer right hand 2015
== END 2025-07-13 15:38 | disposition home or self-care (01) ==
LOC: HO.HMCFM 14:53
PROVIDERS: PCP Family Medicine; Visit Provider Family Medicine
DX: I10 Essential (primary) hypertension (principal); E11.9 Type 2 diabetes mellitus without complications; R26.89 Other abnormalities of gait and mobility; R29.898 Other symptoms and signs involving the musculoskeletal system; Z13.820 Encounter for screening for osteoporosis; Z00.00 Encounter for general adult medical examination without abnormal findings

== ENCOUNTER → 2025-07-13 14:52 | Outpatient (BNVA) | payer MEDICARE, OTHER, SELFPAY | PROVIDERS: PCP Family Medicine; Visit Provider Family Medicine | DX: Z00.00 Encounter for general adult medical examination without abnormal findings (principal); I10 Essential (primary) hypertension; E11.9 Type 2 diabetes mellitus without complications; R26.89 Other abnormalities of gait and mobility; R29.898 Other symptoms and signs involving the musculoskeletal system; M81.0 Age-related osteoporosis without current pathological fracture | CPT/HCPCS: 99212 ==

== ENCOUNTER 2025-07-21 12:53 | Outpatient (AMB) | payer MEDICARE, OTHER, SELFPAY ==
[2025-07-21 14:09] VITALS: BP 130/64; PULSE 80; TEMP 36.6; O2SAT 95; BMI 24.4
--- NOTE | 2025-07-21 14:09 | MHC.OFFWIV ---
Intake Vital Signs 07/21/25 14:09 Height 5 ft 3 in Weight 138 lb BMI 24.4 BP 130/64 Blood Pressure Location Lt brachial Position Standing Pulse 80 Pulse Source Pulse Oximeter Temp 97.9 F Temp Source Oral Pulse Oximetry (%) 95 Oxygen Delivery Method Room Air Intake Visit Reasons: ep sciatic nerve pain Intake Note: pt presents with left sided sciatica nerve flare Patient Tobacco Use Status: Former Tobacco user Allergies levofloxacin (From Levaquin) Allergy (Mild, Verified 07/21/25 14:13) hives Do you need a note to return to daycare/school/sports/work: No HPI HPI Comments History of Present Illness Details History of Present Illness - The patient is an 85-year-old female presenting with sciatica pain. - The sciatica pain began on Saturday and has been severe enough to prevent the patient from dressing and undressing due to discomfort. - The pain is localized to the left side and radiates from the hip down to the ankle, exacerbated by standing, bending, and sitting. - The patient has a history of receiving a cortisone injection for similar symptoms in the past, administered by Dr. Cesar in [place]. - There is no associated loss of bladder or bowel control. - The patient has diabetes mellitus, takes oral medications. Physical Exam General: Cooperative, healthy appearing, comfortable, no acute distress and well developed Orientation: Patient oriented x3 Limitations: No limitations Head: Normal to inspection Ears: Hearing grossly normal bilaterally Nose: Normal External nose present Face and sinus: Normal facial exam Eyes: Appearance normal, both eyes and all related structures Neck: Normal visual inspection and Yes full ROM Respiratory: Normal respiratory effort and able to speak in complete sentences. Skin: No rashes or lesions noted Neuro: Patient oriented x3, normal gait with cane Extremities: Normal to inspection, + straight leg left side Review of Systems - Neurological: Reports left-sided sciatica pain radiating to the ankle, denies loss of bladder or bowel control - Endocrine: Reports having diabetes mellitus All systems reviewed and are unremarkable except as noted in HPI [facility] Medical History Neuropathy of both feet Trigger finger, left middle finger Diabetes Surgical History Hx of colonoscopy History of bladder repair surgery History of hysterectomy History of hand surgery History of neck surgery Social History (Updated 07/13/25 @ 15:04 by Steph Baker CMA) Housing: Assisted Living Facility Alcohol intake: never Patient Tobacco Use Status: Former Tobacco user e-Cigarette/Vaping Use: Never Used Second Hand Smoke Exposure: No service: No Current occupational status: retired 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 Sciatica - Initiate a prednisone burst of 50 mg daily for five days to manage inflammation and pain. - Referral to physiatry for further evaluation and potential cortisone injection if oral steroids are ineffective. - Advise on sciatic nerve stretches to be performed once pain subsides to only the upper leg. - Monitor blood glucose levels closely during prednisone treatment due to potential hyperglycemic effects. Orders: Referrals Physiatry Referral M54.32 - Sciatica, left side Medications: New prednisone 50 mg PO QAM 5 tabs 0RF Coding Level of Care Code Est Pt Level 3 (52354) Diagnoses Left sided sciatica M54.32
--- OUTSIDE RECORDS SUMMARY | 2025-07-21 16:19 | XMS_ITS | Patient Health Record ---
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) Active confirmed Problem 869477544 Acute lateral meniscus tear of left knee, subsequent encounter (S83.282D) Active confirmed Problem 6243973 Tear of left rot ator cuff, unspecified tear extent (M75.102) Active confirmed Problem 381618585 Acromioclavicula r joint arthritis, 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) Active confirmed Plan Of Treatment Pending Test Test Name Order Date Physical Therapy - In Home 11/02/2019 Insurance Providers Payer Name Payer Address Payer Phone Subscriber Number Group Number Insured Name Patient Relationship to Insured Coverage Start Date Coverage End Date Medicare Claims [address] [place] [address] [id number] Kassy Holly Self - patient is the insured For Life [address] [place] [address] [id number] Kassy Holly Self - patient is the insured Medical (General) History Medical History History ICD Code fibromyalgia high blood pressure diabetes arthritis Condtions and Illness: High Blood Pressu re,Diabetes,Arthritis Surgical History Surgery Date(Month/Year) hysterectomy 1989 neck surgery 1991 bladder suspension 1994 right finger trigger 2009 squamous cell cancer right hand 2015
== END 2025-07-21 14:55 | disposition home or self-care (01) ==
PROVIDERS: PCP Family Medicine; Visit Provider Physician Assistant
DX: M54.32 Sciatica, left side (principal)

== ENCOUNTER → 2025-07-21 12:53 | Outpatient (BNVA) | payer MEDICARE, OTHER, SELFPAY | PROVIDERS: PCP Family Medicine; Visit Provider Physician Assistant | DX: M54.32 Sciatica, left side (principal) | CPT/HCPCS: 99212 ==

== ENCOUNTER 2025-08-06 10:15 | Outpatient (REF) | payer MEDICARE, OTHER, SELFPAY ==
--- NOTE | ~2025-08-06 | XR_ITS ---
EXAMINATION: XR LUMBOSACRAL SPINE CLINICAL INFORMATION: M54.50 - Low back pain, unspecified COMPARISON: None available. TECHNIQUE: AP and lateral views. FINDINGS: Multilevel marginal osteophyte formation and endplate sclerosis and decreased intervertebral disc height throughout the axial skeleton. Rudimentary ribs at T12. Bilateral facet joint hypertrophy at L4-5 and L5-S1. Grade 1 anterolisthesis at L4-5. No lytic or blastic lesions. Levoconvex curvature of the lumbar spine. Vascular calcifications. Sclerosis and the sacroiliac joints, left greater than the right side. XR/XR lumbar spine 2-3V IMPRESSION: Multilevel thoracolumbar spondylosis and mild levoconvex scoliosis. Grade 1 anterolisthesis L4-5. Electronically signed by: Raj Masters MD 08/06/2025 12:20 PM EDT
--- NOTE | ~2025-08-06 | XR_ITS ---
EXAMINATION: XR HIP 1 VIEW LEFT WITH PELVIS HISTORY: M25.552 - Pain in left hip COMPARISON: There are no prior studies available for comparison. FINDINGS: A single AP view of the pelvis and two views of the left hip are submitted. Osseous mineralization is normal. There is no fracture or dislocation. The joint space is maintained. The soft tissues are unremarkable. XR/XR hip LT w PEL1V IMPRESSION: Unremarkable examination of the left hip. Electronically signed by: Rey John MD 08/06/2025 12:19 PM EDT
== END 2025-08-06 10:16 | disposition home or self-care (01) ==
LOC: HO.XRAY 10:15
PROVIDERS: PCP Family Medicine; Visit Provider Family Medicine
DX: M25.552 Pain in left hip (principal); M54.50 Low back pain, unspecified
CPT/HCPCS: 72100; 73502

== ENCOUNTER → 2025-08-06 11:25 | Outpatient (BNV) | payer MEDICARE, OTHER, SELFPAY | PROVIDERS: PCP Family Medicine; Visit Provider Radiology Diagnostic Radiology | DX: M54.50 Low back pain, unspecified (principal); M25.552 Pain in left hip | CPT/HCPCS: 72100; 73502 ==

== ENCOUNTER 2025-09-06 11:43 | Outpatient (REF) | payer MEDICARE, OTHER, SELFPAY ==
[2025-09-06 14:26] LABS: Appearance Urine Clear; Glucose Urine UA >=1000 mg/dL (Negative); PH 6.0 (5.0-9.0); Specific Gravity - Urine 1.020 (1.005-1.025); UMIC TRIGGER UACC YES
[2025-09-06 14:32] LABS: UACC Culture Trigger YES
[2025-09-06 14:54] LABS: Anion Gap 12 (12-20); Blood Urea Nitrogen 22 mg/dL (9-16); Calcium 9.7 mg/dL (8.4-10.2); Carbon Dioxide 31 mmol/L (22-29); Chloride 106 mmol/L (96-108); Estimated Glomerular Filt Rate 43; Potassium 4.6 mmol/L (3.3-5.1); Sodium 144 mmol/L (135-145)
[2025-09-06 15:22] LABS: Total Protein Urine Random < 7 mg/dL (<12)
== END 2025-09-06 11:44 | disposition home or self-care (01) ==
LOC: HO.WFDLDS 11:43
PROVIDERS: Referring Provider Family Medicine; Visit Provider Internal Medicine Hypertension Specialist
DX: N18.30 Chronic kidney disease, stage 3 unspecified (principal)
CPT/HCPCS: 36415; 80048; 81001; 82570; 84156; 87086

== ENCOUNTER 2025-09-09 11:10 | Outpatient (AMB) | payer MEDICARE, OTHER, SELFPAY ==
[2025-09-09 11:15] VITALS: BP 118/48; PULSE 74; O2SAT 94; BMI 24.1
--- NOTE | 2025-09-09 11:15 | HO.NEPHOV ---
Vital Signs 09/09/25 11:15 Height 5 ft 3 in Weight 136 lb BMI 24.1 BP 118/48 L Blood Pressure Location Lt brachial Position Sitting Pulse 74 Pulse Source Pulse Oximeter Pulse Oximetry (%) 94 Oxygen Delivery Method Room Air Intake Visit Reasons: FU Smoking Tobacco Cutter Operator Required: No Accompanied by: Self / Same As Patient Allergies levofloxacin (From Levaquin) Allergy (Mild, Verified 09/09/25 11:17) hives Medication List - Last Reconciled 09/09/25 by Dilshad Flores MD amitriptyline 50 mg PO BEDTIME 90 days atorvastatin 20 mg PO BEDTIME blood sugar diagnostic (True Metrix Glucose Test Strip) Once a day As directed, to test blood sugar. 90 days blood-glucose sensor (FreeStyle Natalia 3 Sensor device) 2 times a month, As directed, 84 days blood-glucose,driver license technician,cont (FreeStyle Natalia 3 [place]) As directed, 999 days dulaglutide 1.5 mg (0.5 mL) subcut QWEEK 84 days empagliflozin (Jardiance) 20 mg (2 x 10 mg) PO DAILY 90 days gabapentin 300 mg PO BID 90 days glyburide 5 mg PO BID 90 days lisinopril 10 mg PO DAILY 90 days mecobalamin (vitamin B12) mcg PO HPI Comments Details: Kassy is a elderly woman with a history of longstanding diabetes mellitus. She has underlying CKD with the serum creatinine of around 1.3 mg/dL. For the last 2 years, since 2020, serum creatinine has been stable around 1.3 mg/dL. She has had no significant proteinuria. She has been referred for further management of underlying CKD. She monitors blood pressure at home and occasionally blood pressure is on the low side and she feels lightheaded. She is on Jardiance as well. Overall doing OK. No new issues today 03/11/25 85-year-old female presenting with a six-month follow-up for diabetes mellitus and chronic kidney disease management. She has a stable history of these conditions with no significant events since her last visit in September. Her kidney function, as represented by eGFR, showed improvement from 37% in August, to 39% in September, and most recently 42% in February. Concurrently, her diabetes is managed with medication, resulting in a decrease in hemoglobin A1c from 7.3% to 7.0%. Her therapy includes lisinopril and Jardiance, which she reports as being effective and well-tolerated. She denied any new symptoms such as dyspnea, persistent cough, or lower extremity edema. The current medication regimen continues to support control of these chronic conditions. 09/09/25 The patient is an 85 year old female presenting for a 6-month nephrology follow-up and a new complaint of hematochezia. She reports that yesterday she had bright red, bloody stool and also noticed blood when wiping. This was associated with crampy abdominal discomfort that improved after the bowel movement. She reports this is the first time this has happened, and she denies any known history of hemorrhoids. The last colonoscopy was more than five years ago. Her typical bowel habit is a movement every other day, and she denies being constipated. She has an upcoming appointment with Dr. Bourne on the . Regarding her chronic conditions, her kidney function has improved, her blood pressure is well-controlled, and her blood sugars are okay. She denies taking Aleve, Advil, or Motrin, and understands she can take acetaminophen. 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 Lungs entry equal no rales. Heart S1-S2 heard no gallop or rub. Abdomen soft nontender. Neuro alert awake oriented. No asterixis. Extremities no edema. Results Reviewed Nephrology Results: Sodium, (135-145) 144 mmol/L 09/06/25 Potassium, (3.3-5.1) 4.6 mmol/L 09/06/25 Chloride, (96-108) 106 mmol/L 09/06/25 Carbon Dioxide, (22-29) 31 mmol/L H 09/06/25 BUN, (9-16) 22 mg/dL H 09/06/25 Creatinine, (0.5-1.4) 1.19 mg/dL 09/06/25 Calcium, (8.4-10.2) 9.7 mg/dL 09/06/25 Urine Protein, (Neg-Trace) Negative mg/dL 09/06/25 Urine Creatinine 74.60 mg/dL 09/06/25 Renal US 10/18/23 Assessment & Plan Assessment & Plan (1) CKD (chronic kidney disease) stage 3, GFR 30-59 ml/min: Code(s): N18.30 - Chronic kidney disease, stage 3 unspecified Category: Medical (2) Essential hypertension: Code(s): I10 - Essential (primary) hypertension Category: Medical (3) Diabetes: Code(s): E11.9 - Type 2 diabetes mellitus without complications Category: Medical Plan Elderly woman with stable CKD 3 in the setting of longstanding diabetes mellitus and hypertension. Serum creatinine is has been stable on 1.3 mg/dL for almost 2 years. She has no significant proteinuria based on the recent urine studies. renal ultrasonogram : No obstruction . Based on the bland urine sediments I do not believe she has active glomerulonephritis or interstitial disease. The blood pressure is acceptable No need for hydrochlorothiazide Continue with lisinopril and encouraged her to keep monitoring blood pressure at home. As for diabetes mellitus recent A1c was under 7%. I have encouraged her to monitor blood sugar and maintain hemoglobin A1c less than 7%. Agree with using is SGLT2 inhibitors h/o Mild hypercalcemia Repeat was 9.7 IPTH was 100 - shall watch h/o rectal bleed Advised to go to ER if it recurs or if she has any pain Orders: Orders Basic Metabolic Panel 6 Months N18.30 - Chronic kidney disease, stage 3 unspecified Complete Blood Count no Diff 6 Months I10 - Essential (primary) hypertension Parathyroid Hormone Intact 6 Months N18.30 - Chronic kidney disease, stage 3 unspecified Coding Level of Care Code Est Pt Level 4 (26157) Diagnoses CKD (chronic kidney disease) stage 3, GFR 30-59 ml/min N18.30 Essential hypertension I10 Diabetes E11.9
== END 2025-09-09 11:37 | disposition home or self-care (01) ==
LOC: HO.HKA 11:11
PROVIDERS: PCP Family Medicine; Visit Provider Internal Medicine Hypertension Specialist
DX: N18.30 Chronic kidney disease, stage 3 unspecified (principal); I10 Essential (primary) hypertension; E11.9 Type 2 diabetes mellitus without complications
CPT/HCPCS: 99214

== ENCOUNTER → 2025-09-09 11:10 | Outpatient (BNVA) | payer MEDICARE, OTHER, SELFPAY | PROVIDERS: PCP Family Medicine; Visit Provider Internal Medicine Hypertension Specialist | DX: I10 Essential (primary) hypertension (principal); N18.30 Chronic kidney disease, stage 3 unspecified; E11.9 Type 2 diabetes mellitus without complications | CPT/HCPCS: 99212 ==

== ENCOUNTER 2025-09-21 10:22 | Outpatient (AMB) | payer MEDICARE, OTHER, SELFPAY ==
--- NOTE | 2025-09-21 10:46 | A.OFFPC_ITS ---
Vital Signs 09/21/25 10:55 Height 5 ft 3 in Weight 134 lb 8 oz BMI 23.8 BP 114/62 Blood Pressure Location Rt brachial Position Sitting Respiration 15 Pulse 59 Pulse Source Pulse Oximeter Temp 97.7 F Temp Source Temporal Artery Scan Pulse Oximetry (%) 95 Oxygen Delivery Method Room Air Intake Visit Reasons: Blood sugar Intake Note: Kassy presents in the office today for diabetes. 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 90 days blood-glucose sensor (WebsenseStyle Natalia 3 Sensor device) 2 times a month, As directed, 84 days blood-glucose,bridge/structure inspection team leader,cont (FreeStyle Natalia 3 [place]) As directed, 999 days dulaglutide 1.5 mg (0.5 mL) subcut QWEEK 84 days empagliflozin (Jardiance) 20 mg (2 x 10 mg) PO DAILY 90 days gabapentin 300 mg PO BID 90 days glyburide 5 mg PO BID 90 days lisinopril 10 mg PO DAILY 90 days mecobalamin (vitamin B12) mcg PO Tobacco use date assessed: 09/21/25 Fall risk assessment: 1 Fall in past year Last assessed Fall Risk: 09/21/25 Dental Screening Dental Screen Date: 09/21/25 Did you have a dental visit in the last 12 months?: Yes Did you have a dental problem in the last 6 months where you did not have access to dental care?: No Was dental information given to patient?: Patient has dentist HPI Blood sugar HPI Details 85 y/o female presents to f/u diabetes. A1c today 09/21/25 7.1%. She is on dulaglutide 1.5mg, Jardiance 20mg, glyburide 5mg b.i.d. BP today 114/62, 59p. She is on lisinopril 10mg daily. Reports improving low back pain/sciatica with start of physical therapy. Does report recent flare-up of sciatica. Reports recent predisone use which has spiked her blood sugars. No longer on prednisone. Has not gotten her eye exam done yet this year. 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 Current occupational exposures/hazards: No Cognitive needs: Yes (cane) Hearing needs: No Vision needs: No Questionnaire Thrive Questionnaire Date Thrive assessed: 11/26/24 I am a: Patient What is your living situation today?: I have a steady place to live Within the past 12 months, did the food you bought not last and you didn't have the money to get more?: Often true Within the past 12 months, did you worry whether your food would run out before you got money to buy more?: Never true Do you have trouble paying for medicines?: No Do you have trouble getting transportation to medical appointments?: No Do you have trouble paying your heating and electricity bill?: No Do you have trouble taking care of your child, family member or friend?: No Do you have trouble with day-to-day activities such as bathing, preparing meals, shopping, managing finances, etc.?: No Are you currently unemployed and looking for a job?: No Are you interested in more education?: No Please select the resources that you would like help with: None Currently or been in a relationship where the following occur: No concerns reported THRIVE Score: 1 MORA-7 AMB Questionnaire MORA-7 Date MORA - 7 assessed: 03/25/24 Source: Developed by Drs. Rey Manley, Kalyani Mccallum, Jameel Peterson and colleagues, with an educational cm from [employer]. Review of Systems Const Denies chills, Denies fatigue, Denies fever(s), Denies headache(s) and Denies weakness ENT Denies dizziness and Denies headache(s) Card Denies dyspnea Resp Denies cough, Denies dyspnea, Denies wheezing and Denies other (shortness of breath) Musc Denies numbness and Denies tingling Neuro Denies dizziness, Denies headache(s), Denies numbness, Denies tingling and Denies weakness Psych Denies anxiety and Denies depression Endo Denies fatigue Aller/Immun Denies wheezing Physical exam (Primary Care) Vital Signs: Last Vital Signs Temp 97.7 F 09/21/25 10:55 Pulse 59 09/21/25 10:55 Resp 15 09/21/25 10:55 BP 114/62 09/21/25 10:55 Pulse Ox 95 09/21/25 10:55 Oxygen Delivery Method Room Air 09/21/25 10:55 BMI result Body Mass Index 23.8 Tobacco/Smoking Status: Tobacco use Status Tobacco use date assessed 09/21/25 09/21/25 10:58 Patient Tobacco Use Status Former Tobacco user 09/21/25 10:55 e-Cigarette/Vaping Use Never Used 09/21/25 10:55 Thrive Assessment: Date of Thrive Assessment Date Thrive assessed 11/26/24 09/21/25 10:47 Currently or been in a relationship where the following occur: No concerns reported Const General: well developed; No acute distress Nutritional Appearance: well nourished Orientation/consciousness: patient oriented x3 HENMT Head: Yes normocephalic and Yes atraumatic Eyes General: appearance normal, both eyes and all related structures Pupils: Equal, round and reactive pupils present EOM: EOMs intact bilaterally Resp Effort & Inspection: normal respiratory effort Auscultation: clear to auscultation bilaterally Cardio Rate: regular rate Rhythm: regular rhythm Heart sounds: S1 normal heart sound present, S2 normal heart sound present, no gallops, no murmurs and no rubs Neuro General: patient oriented x3 and gait normal Cranial nerves: Yes Equal, round and reactive pupils present Psych Affect: normal affect Coding Level of Care Code Est Pt Level 4 (22058) Diagnoses Diabetes E11.9 Essential hypertension I10 Low back pain M54.50 Assessment & Plan Assessment & Plan (1) Diabetes: Code(s): E11.9 - Type 2 diabetes mellitus without complications Category: Medical Plan: A1c climbed from 6.8% to 7.1% Patient had significant flare-up of sciatica and was given prednisone which raised her blood sugars considerably. No longer on prednisone. No change to her blood sugar medication regimen today. Continue diabetic diet Will continue to monitor If A1c remains elevated, could increase Jardiance from 20 mg to 25 mg daily. (2) Essential hypertension: Code(s): I10 - Essential (primary) hypertension Category: Medical Plan: Blood pressure is controlled. Goal is less than 140/90 Continue current medication (3) Low back pain: Code(s): M54.50 - Low back pain, unspecified Category: Medical Plan: Improving low back pain and sciatica with start of physical therapy and physiatry at [facility] I have not received a recent note from [facility] and will request this
[2025-09-21 10:55] VITALS: BP 114/62; PULSE 59; RESP 15; TEMP 36.5; O2SAT 95; BMI 23.8
--- OUTSIDE RECORDS SUMMARY | 2025-09-21 13:05 | XMS_ITS | Patient Health Record ---
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 Name Role Phone Shaun Kiran MD Primary Care Provider Tenzin George MD Unavailable [phone] Tenzin Ruano MD Unavailable Unavailable Allergies Allergen (clinical drug ingredient) Drug/Non Drug Allergy documented on EMR Reaction Allergy Type Onset Date Status levaquine (uncoded) hives Allergy Active Reason For Referral No Information Medications Medication SIG (Take, Route, Frequency, Duration) Notes Start Date End Date Diagnosis (ICD Code) Status atorvastatin Active Jardiance Active magnesium Active vit e Active amitriptyline As directed Active gabapentin As directed Active Lisinopril As directed Active glyBURIDE As directed Active Statin As directed Not-Taking Preservision As directed Not-Thomas ing Janumet As directed Not-Taking aspirin As directed Not-Taking Social History Tobacco Use: Social History Observation Description Date Details (start date - stop date) Former Smoker NA - NA Sex Observation Social History Observation Description Sex Observation Female Social History General Social Info Question Answer Notes Tobacco Use The patient is a former smoker Additional Findings: Tobacco Non-User Current no n-smoker The patient is a former smoker Additional Findings: Tobacco Non-User Current no n-smoker Smoking or Alcohol use Tobacco Use Are you a: Former S moker Do you drink alcohol regularly? No Have you used or do you use other drugs? No When did you quit smoking? 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 School Level of Education High school Level of Education High School Smoked cigarettes in the past: Y es Problems Problem Type SNOMED Code ICD Code Dates Problem Status W/U Status Risk Notes Problem Impingement syndrome of left shoulder region (643832555419557) Impingement syndrome of left shoulder (M75.42) Added On:03/2017 Active confirmed Problem Internal derangement of left knee (3018974542653272 8) Internal derangement of left knee (M23.92) Added On:10/08 Active confirmed Problem Acute tear of lateral meniscus of left knee (disorder) (0241781040292761 5) Acute lateral meniscus tear of left knee, subsequent encounter (S83.282D) Added On:10/08 Active confirmed Problem Tear of left rotator cuff (3796239430234627 2) Tear of left rotator cuff, unspecified tear extent (M75.102) Added On:11/2016 Active confirmed Problem Localized, primary osteoarthritis of the shoulder region (531781538) Acromioclavicular joint arthritis, 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) Added On:06/2017 Active confirmed Plan Of Treatment Pending Test Test Name Order Date Physical Therapy - In Home 11/02/2019 Insurance Providers Payer Name Payer Address Payer Phone Subscriber Number Group Number Insured Name Patient Relationship to Insured Coverage Start Date Coverage End Date Medicare Claims [address] [place] [address] [id number] Kassy Holly Self - patient is the insured For Life [address] [place] [address] [id number] Kassy Holly Self - patient is the insured Medical (General) History Medical History History ICD Code fibromyalgia high blood pressure diabetes arthritis Condtions and Illness: High Blood Pressu re,Diabetes,Arthritis Surgical History Surgery Date(Month/Year) hysterectomy 1989 neck surgery 1991 bladder suspension 1994 right finger trigger 2009 squamous cell cancer right hand 2014
== END 2025-09-21 11:38 | disposition home or self-care (01) ==
LOC: HO.HMCFM 10:23
PROVIDERS: PCP Family Medicine; Visit Provider Family Medicine
DX: E11.9 Type 2 diabetes mellitus without complications (principal); I10 Essential (primary) hypertension; M54.50 Low back pain, unspecified

== ENCOUNTER → 2025-09-21 10:22 | Outpatient (BNVA) | payer MEDICARE, OTHER, SELFPAY | PROVIDERS: PCP Family Medicine; Visit Provider Family Medicine | DX: I10 Essential (primary) hypertension (principal); E11.9 Type 2 diabetes mellitus without complications; M54.50 Low back pain, unspecified | CPT/HCPCS: 83036; 99212 ==

== ENCOUNTER 2025-09-23 13:27 | Outpatient (REF) | payer MEDICARE, OTHER, SELFPAY ==
--- NOTE | ~2025-09-23 | MM_ITS ---
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 COMPARISON: There are no prior studies for comparison. FINDINGS: The bone mineral density of the lumbar spine is 1.290 g/cm2, corresponding to a T-score of 1.0, and a Z-score of 3.1. This is indicative of normal bone mineral density. The bone mineral density of the left total hip is 0.913 g/cm2, corresponding to a T-score of -0.8, and a Z-score of 1.7. This is indicative of normal bone mineral density. The bone mineral density of the left femoral neck is 0.914 g/cm2, corresponding to a T-score of -0.9, and a Z-score of 1.6. This is indicative of normal bone mineral density. MM/XR DEXA axial skeleton IMPRESSION: Based on bone mineral density, and according to World Health Organization (WHO) criteria, the diagnosis is consistent with normal bone mineral density. Statistically, 68% of repeat scans fall within 1 SD (+/- 0.010 g/cm2 for AP spine L1-L4) and 1 SD (+/- 0.012 g/cm2 for femur total) FRAX is a trademark of the [employer]'s [place] [facility] Met[employer] Disease, a World Health Organization (WHO) Collaborating Center. Electronically signed by: Rey John MD 09/23/2025 01:58 PM [facility]
--- OUTSIDE RECORDS SUMMARY | 2025-09-23 17:36 | XMS_ITS | Patient Health Record ---
Author Organization [facility] Address [address] [place] [address] Phone [phone] Care Team Providers Care Cell Tuber Hand Name Role Phone Shaun Kiran MD Primary Care Provider Tenzin George MD Unavailable [phone] Tenzin Ruano MD Unavailable Unavailable Allergies Allergen [...] Statin As directed Not-Taking Preservision As directed Not-Htomas ing Janumet As directed Not-Taking aspirin As [...] Problem Impingement syndrome of left shoulder region (152282134142844) Impingement syndrome of left shoulder (M75.42) Added On:03/2017 Active confirmed Problem Internal derangement of left knee (3454612605973360 8) Internal derangement of left knee (M23.92) Added On:10/08 Active confirmed Problem Acute tear of lateral meniscus of left knee (disorder) (9678879657607557 5) Acute lateral meniscus tear of left knee, subsequent encounter (S83.282D) Added On:10/08 Active confirmed Problem Tear of left rotator cuff (7067144855334524 2) Tear of left rotator cuff, unspecified tear extent (M75.102) Added On:11/2016 Active confirmed Problem Localized, primary osteoarthritis of the shoulder region (880011931) Acromioclavicular joint arthritis, 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) Added On:06/2017 Active confirmed Plan Of Treatment Pending Test Test Name Order Date Physical Therapy - In Home 11/02/2019 Insurance Providers Payer Name Payer Address Payer Phone Subscriber Number Group Number Insured Name Patient Relationship to Insured Coverage Start Date Coverage End Date Medicare Claims [address] [place] [address] [id number] Kassy Holly Self - patient is the insured For Life [address] [place] [address] [id number] Kassy Holly Self - patient is the insured Medical (General) History Medical History History ICD Code fibromyalgia high blood pressure diabetes arthritis Condtions and Illness: High Blood Pressu re,Diabetes,Arthritis Surgical History Surgery Date(Month/Year) hysterectomy 1989 neck surgery 1991 bladder suspension 1994 right finger trigger 2009 squamous cell cancer right hand 2014
== END 2025-09-23 13:28 ==
LOC: HO.MAMMO 13:27
PROVIDERS: PCP Family Medicine; Visit Provider Family Medicine
DX: M81.0 Age-related osteoporosis without current pathological fracture (principal)
CPT/HCPCS: 77080

== ENCOUNTER → 2025-09-23 13:30 | Outpatient (BNV) | payer MEDICARE, OTHER, SELFPAY | PROVIDERS: PCP Family Medicine; Visit Provider Radiology Diagnostic Radiology | DX: E28.39 Other primary ovarian failure (principal) | CPT/HCPCS: 77080 ==